=== PATIENT | male | born 1935 | race Caucasian/White ===

== ENCOUNTER 2017-03-26 14:43 | Emergency (ER) | payer MEDICARE, BC, SELFPAY ==
--- NOTE | 2017-03-26 15:42 | XR_ITS ---
XR ankle RT min 3V Ordering Physician: Len Vizcarra Patient Age: 81 years: Male HISTORY: ITS.REASON: ANKLE PAIN. NO INJURY . Swelling ankle. No injury TECHNIQUE: 3 views of right ankle. COMPARISON : Previous right foot study from 2011. FINDINGS Soft tissue swelling is seen overlying the lateral malleolus more so than medial malleolus. No prominent fractures seen at the ankle. No dislocation However just below the tip of the lateral malleolus is a faint calcification. Could reflect old trauma or could reflect a small subtle flake fracture. Barely appreciable in either case. There is similar faint calcification just below the tip of the medial malleolus. I tend to favor old injury here but that acute.. I have no previous ankle studies for comparison.to. Confirm these are old features. U may want to exclude gouty workup if there is any other findings to raises this possibility Also note some faint vascular calcifications throughout the lower leg The dome of the talus is intact with ankle mortise is intact. There is some minor hypertrophic lipping at the superior aspect of the distal tibia at ankle reflecting minor early degenerative changes. Mild talar beaking dorsally. The patient has some dystrophic calcification at the Achilles tendon leading to the Achilles insertion there is also some soft tissue dystrophic calcification anterior to the tibia faintly seen. Minimal small vessel calcification also suggested. . ====== IMPRESSION: Faint calcification just inferior to tip lateral malleolus as well as medial malleolus noted, as well as faint dystrophic calcifications elsewhere about the ankle, as well as Achilles tendon..- Favor these are all most likely dystrophic calcifications, reflecting old injury and/or aging process in this 81-year-old.. Would note Soft tissue swelling is most evident overlying the lateral malleolus.-With this is difficult Difficult to totally exclude a tiny recent flake fracture off tip lateral malleolus but again overall I tend to favor this is an old feature. (Particularly since there is significant injury reported) Certainly no significant displaced fractures, & ankle mortise appears intac .
[2017-03-26 16:14] VITALS: BP 144/65; PULSE 78; RESP 20; TEMP 36.9; O2SAT 96; BMI 29.8
--- NOTE | 2017-03-26 16:24 | HMH.EDUTC ---
[facility] [place] Disposition Clinical Impression: Edema of right lower extremity Disposition: Home, Self-Care Condition on Discharge: Good Instructions: DI for Deep Vein Thrombosis Additional Instructions: go straight to [place] for eval in ed Referrals: Neo Gavin MD [Primary Care Provider] - Time of Disposition: 16:34 (pt refused admission wants to go to [place] to ed for eval tonight afraid of getting sick and wants to know tonight if has a dvt.) Medical Decision Making Vital Signs: 03/26/17 16:14 Temperature 98.4 F Temperature Source Temporal Artery Scan Pulse Rate [Right Radial] 78 Respiratory Rate 20 Blood Pressure [Right Arm] 144/65 Blood Pressure Mean [Right Arm] 91 Blood Pressure Source [Right Arm] Automatic Cuff Blood Pressure Position [Right Arm] Sitting 02 Sat by Pulse Oximetry 96 Oxygen Delivery Method Room Air Orders (Tests/Meds): ORDERS Category Date Time Status Ankle XR -Right minimum 3 Views [XR ankle RT min 3V] Exams 03/26/17 15:42 Taken Stat - Physician Consults Physician Consulted: shari Time: 16:25 Reason -: Admission, Pt condition Comment/Response: ok to admit Additional Consult: shari Time: 16:32 Reason -: Admission Comment/Response: pt wants to leave and go to [facility] [place] to have venous doppler tonight afraid of getting sick if admitted and wants to know if dvt tonight. - Ashu Inquiry Pt receiving controlled substance: No [facility] [place] HPI - General Stated complaint: right ankle hurting Time Seen by Provider: 03/26/17 16:15 Mode of Arrival: Wheelchair Source of Information: Patient Limitations: No Limitations HEENT Symptoms (Recalled from RN notes): No Resp Symptoms (Recalled from RN notes): No Skin Symptoms (Recalled from RN notes): No MS Symptoms (Recalled from RN notes): No Functional Status (Recalled from RN notes): NA - History of Present Illness Provider Complaint: 81 yr old male presents for swelling and pain in rt lower ext. no injury noted - Related Data Home Medications Medication Instructions Recorded Confirmed Mycophenolate Mofetil 250 mg PO DAILY 03/26/17 03/26/17 Tacrolimus 1 mg PO DAILY 03/26/17 03/26/17 Allergies Allergy/AdvReac Type Severity Reaction Status Date / Time codeine [CODEINE] Allergy Mild Verified 03/26/17 15:06 iodine [IODINE] Allergy Mild Verified 03/26/17 15:06 - Worker's Comp Is this a Worker's Comp case?: No Is this an [facility] Worker's Comp?: No Is this a [place] Worker's Comp?: No [facility] History I have reviewed the patient's past medical history: Yes Medical History: Denies:: Cancer, Diabetes Mellitus Type 1, Diabetes Mellitus Type 2, MRSA Amputation: No Fractures: No - *Social History Educational Level: Attended High School Alcohol Intake: never - Psychiatric History Expresses thoughts of harming self/others: None Suicide Plan Description: No Plan ROS Obtained: Yes All systems reviewed & no additional complaints - Constitutional Constitutional: Reports system reviewed and no additional complaints, except as docu - Eyes Eyes: Reports system reviewed and no additional complaints, except as docu - ENT Ears, Nose, Mouth, and Throat: Reports system reviewed and no additional complaints, except as docu - Cardiovascular Cardiovascular: Reports system reviewed and no additional complaints, except as docu, Reports pedal edema - Respiratory Respiratory: Yes system reviewed and no additional complaints, except as docu - Gastrointestinal Gastrointestingal: Reports: system reviewed and no additional complaints, except as docu - Musculoskeletal Musculoskeletal: Reports system reviewed and no additional complaints, except as docu - Integumentary/Breasts Skin/Breast: Reports system reviewed and no additional complaints, except as docu - Neurologic Neurologic: Reports system reviewed and no additional complaints, except as docu - Endocrine Endocrine: Reports system reviewed and no a
--- NOTE | 2017-03-26 16:30 | ED_ITS ---
[facility] [place] Clinical Impression: Edema of right lower extremity Disposition: Home, Self-Care Condition on Discharge: Good Instructions: DI for Deep Vein Thrombosis Additional Instructions: go straight to [place] for eval in ed Referrals: Neo Gavin MD [Primary Care Provider] - Time of Disposition: 16:34 (pt refused admission wants to go to [place] to ed for eval tonight afraid of getting sick and wants to know tonight if has a dvt.) Medical Decision Making Vital Signs: 03/26/17 16:14 Temperature 98.4 F Temperature Source Temporal Artery Scan Pulse Rate [Right Radial] 78 Respiratory Rate 20 Blood Pressure [Right Arm] 144/65 Blood Pressure Mean [Right Arm] 91 Blood Pressure Source [Right Arm] Automatic Cuff Blood Pressure Position [Right Arm] Sitting 02 Sat by Pulse Oximetry 96 Oxygen Delivery Method Room Air Orders (Tests/Meds): ORDERS Category Date Time Status Ankle XR -Right minimum 3 Views [XR ankle RT min 3V] Exams 03/26/17 15:42 Taken Stat - Physician Consults Physician Consulted: shari Time: 16:25 Reason -: Admission, Pt condition Comment/Response: ok to admit Additional Consult: shari Time: 16:32 Reason -: Admission Comment/Response: pt wants to leave and go to [facility] to have venous doppler tonight afraid of getting sick if admitted and wants to know if dvt tonight. - Ashu Inquiry Pt receiving controlled substance: No [facility] [place] - General Stated complaint: right ankle hurting Time Seen by Provider: 03/26/17 16:15 Mode of Arrival: Wheelchair Source of Information: Patient Limitations: No Limitations HEENT Symptoms (Recalled from RN notes): No Resp Symptoms (Recalled from RN notes): No Skin Symptoms (Recalled from RN notes): No MS Symptoms (Recalled from RN notes): No Functional Status (Recalled from RN notes): NA - History of Present Illness Provider Complaint: 81 yr old male presents for swelling and pain in rt lower ext. no injury noted - Related Data Home Medications Medication Instructions Recorded Confirmed Mycophenolate Mofetil 250 mg PO DAILY 03/26/17 03/26/17 Tacrolimus 1 mg PO DAILY 03/26/17 03/26/17 Allergies Allergy/AdvReac Type Severity Reaction Status Date / Time codeine [CODEINE] Allergy Mild Verified 03/26/17 15:06 iodine [IODINE] Allergy Mild Verified 03/26/17 15:06 - Worker's Comp Is this a Worker's Comp case?: No Is this an [facility] Worker's Comp?: No Is this a [place] Worker's Comp?: No [facility] History I have reviewed the patient's past medical history: Yes Medical History: Denies:: Cancer, Diabetes Mellitus Type 1, Diabetes Mellitus Type 2, MRSA Amputation: No Fractures: No - *Social History Educational Level: Attended High School Alcohol Intake: never - Psychiatric History Expresses thoughts of harming self/others: None Suicide Plan Description: No Plan ROS Obtained: Yes All systems reviewed & no additional complaints - Constitutional Constitutional: Reports system reviewed and no additional complaints, except as docu - Eyes Eyes: Reports system reviewed and no additional complaints, except as docu - ENT Ears, Nose, Mouth, and Throat: Reports system reviewed and no additional complaints, except as docu - [facility]
== END 2017-03-26 16:42 | disposition home or self-care (01) ==
PROVIDERS: Emergency Provider Nurse Practitioner Family; Family Provider Family Medicine; PCP Family Medicine
DX: R60.9 Edema, unspecified (principal); Z79.899 Other long term (current) drug therapy
CPT/HCPCS: 73610; 99202

== ENCOUNTER → 2017-05-02 07:05 | Outpatient (CLI) | payer MEDICARE, BC, SELFPAY ==
[2017-05-02 07:12] LABS: Microscopic, Urine URINE MICROSCOPIC (MICROSCOPIC)
[2017-05-02 08:01] LABS: Appearance,Urine CLEAR (Clear); Basophils % 0.4 % (0.1-2.0); Bilirubin,Urine Negative (Negative); Blood, Urine Negative (Negative); Color,Urine YELLOW (Yellow); Eosinophils # 0.1 K/mm3 (0.0-0.4); Eosinophils % 1.7 % (0.1-12.0); Glucose,Urine (UA) Negative (Negative); Hematocrit 47.3 % (42.0-52.0); Hemoglobin 15.4 g/dL (14.1-18.0); Ketones,Urine Negative (Negative); Leukocyte Esterase,Urine Negative (Negative); Lymphocytes # 1.6 K/mm3 (0.7-4.5); Lymphocytes % 23.1 K/mm3 (10-50); Mean Corpuscular HGB Conc 32.5 g/dL (31.8-35.4); Mean Corpuscular Hemoglobin 29.5 pg (27.0-31.2); Mean Corpuscular Volume 90.9 fl (80-94); Mean Platelet Volume 8.4 fl (7.4-10.4); Monocytes # 0.6 K/mm3 (0.1-1.0); Monocytes % 9.2 % (1.7-9.3); Neutrophils # 4.4 K/mm3 (1.8-7.8); Neutrophils % 65.5 % (37.0-80.0); Nitrate,Urine Negative (Negative); Platelet Count 158 K/mm3 (142-424); Protein,Urine TRACE (Negative); Red Blood Count 5.21 M/mm3 (4.60-6.20); Red Cell Distribution Width 13.4 % (11.5-17.5); Specific Gravity, Urine >= 1.030 (1.005-1.030); Urobilinogen,Urine 0.2 EU/dl (0.2); White Blood Count 6.8 K/mm3 (4.8-10.8)
[2017-05-02 08:11] LABS: Bacteria,Urine 1+ /lpf
[2017-05-02 09:08] LABS: Anion Gap 15.1 mEq/L (5-15); Blood Urea Nitrogen 19 mg/dL (7-18); Calcium 8.8 mg/dL (8.5-10.1); Carbon Dioxide 24 mmol/L (21.0-32.0); Chloride 105 mmol/L (98-107); Creatinine,Serum 1.16 mg/dL (0.70-1.30); Estimated Glomerular Filt Rate 60 ml/min (>60); GFR (African American) 73 ML/MIN (>60); Glucose 114 mg/dL (74-106); Phosphorous 2.8 mg/dL (2.4-4.9); Potassium 4.1 mmoL/L (3.5-5.1); Sodium 140 mmol/L (136-145)
[2017-05-03 13:21] LABS: Vitamin D 25 Hydroxy 38.3 ng/mL (30.0-100.0)
[2017-05-04 11:51] LABS: Parathyroid Hormone Intact 98 pg/mL (15-65)
== END ==
PROVIDERS: Visit Provider Internal Medicine Nephrology
DX: N18.3 Chronic kidney disease, stage 3 (moderate) (principal)
CPT/HCPCS: 36415; 80069; 81001; 82652; 83970; 85025

== ENCOUNTER → 2017-09-25 07:57 | Outpatient (CLI) | payer MEDICARE, BC, SELFPAY | PROVIDERS: Family Provider Family Medicine; PCP Family Medicine; Visit Provider Family Medicine | DX: R07.2 Precordial pain (principal) | CPT/HCPCS: 93017 ==

== ENCOUNTER → 2017-10-16 06:42 | Outpatient (CLI) | payer MEDICARE, BC, SELFPAY ==
--- NOTE | 2017-10-16 06:44 | CA_ITS ---
PROCEDURE: 2-D M-mode and color Doppler study INDICATIONS FOR THE TEST: Chest pain COPD Heart Murmur Tobacco Smoking Palpitations Fatigue Syncope Edema Hypertension Diabetes Mellitus Rheumatic Fever SOB CULVER+Obesity Hyperlipidemia Family History HD Additional History KIDNEY TRANSPLANT PATIENT INFORMATION HEIGHT:66 WEIGHT:185 GENDER: Male B/P:139/79 2-D/M-MODE INTERPRETATION: 2-D MEASUREMENTS OBSERVED VALUES IN CMS Right Ventricular Dimension (RVDd) 2.2 Interventricular Septum (Thickness)(IVsd) 1.3 Left Ventricular Internal Dimensions(LVIDd) 3.2 Left Ventricular Posterior Wall (Thickness)(LVPWd) 1.2 Aortic Root 3.4 Aortic Cusp Separation 1.9 Left Atrial Dimensions (LAD) 3.7 2D 1. Left atrium is mildly enlarged, left ventricle is normal size, mild concentric left ventricular hypertrophy, visually estimated ejection fraction 55% with no obvious regional wall motion abnormality. 2. The right atrium and right ventricle are normal size and contractility. 3. The aortic valve is thickened and calcified leaflet continue to display mobility. 4. Mitral valve has mitral calcification, leaflets are minimally thickened. 5. The pulmonic valve is poorly visualized. 6. No significant pericardial effusion noted. DOPPLER INTERROGATION: Doppler interrogation of the aortic, mitral and tricuspid valvular presence of mild aortic, mild mitral and tricuspid regurgitation, tricuspid and jet velocity insufficient for calculation ventricular systolic pressure, grade 1 diastolic dysfunction seen with tissue Doppler evidence of raised left atrial pressure. CONCLUSION: 1. Mildly enlarged left atrium, normal left ventricular size, mild concentric left ventricular hypertrophy, visually estimated ejection fraction 55% with no obvious regional wall motion abnormality, grade 1 diastolic dysfunction seen with tissue Doppler evidence of raised left atrial pressure. 2. Mild aortic, mild mitral and tricuspid regurgitation 3. No significant pericardial effusion noted.
--- NOTE | 2017-10-16 06:44 | NM_ITS ---
History and Indications: Chest pain, abnormal exercise treadmill stress test Procedure: Patient received a 0.4 mg of intravenous Lexiscan, resting heart rate was 65 bpm, resting blood pressure 139/72, with Lexiscan maximum heart rate achieved was 116 beats prominent which is less than 85% of the maximum predicted heart rate and a blood pressure was 138/73. With Lexiscan no symptoms of chest pain or shortness of breath recorded. Electrocardiogram: Resting electrocardiogram showed sinus rhythm, with Lexiscan there is less than 1.[address] segment depression noted from the baseline EKG. The EKG portion of the Lexiscan Myoview is nondiagnostic. Cardiac stress and resting SPECT images: Cardiac stress and rest SPECT images were obtained using technetium 99 Myoview 31.1 mCi at stress, and 9.8 mCi at rest. Gated SPECT further analysis of segmental wall motion and calculation of the ejection fraction also done. Cardiac stress and rest images show uniform myocardial activity without any segmental perfusion abnormality, computer derived ejection fraction is over 65% with no obvious regional wall motion abnormality, right ventricle is normal size and contractility. Conclusion: 1. The EKG portion of the Lexiscan Myoview is nondiagnostic. 2. No obvious scintigraphic evidence of reversible ischemia seen, computer derived ejection fraction is over 65% with no obvious regional wall motion abnormality, right ventricle is normal size and contractility. 3. Normal Lexiscan Myoview study.
--- NOTE | 2017-10-16 07:31 | HMH.ITSHM ---
TACROLIMUS MYCOPHENOLATE PHOSPHA FINASTERIDE VITAMIN B 12 GABAPENTIN TAMSULOSIN PROLENSA DOXAZOSIN CALAITRAIL
== END ==
PROVIDERS: Family Provider Family Medicine; PCP Family Medicine; Visit Provider Internal Medicine
DX: R07.9 Chest pain, unspecified (principal)
CPT/HCPCS: 78452; 93017; 93306; A9502; J2785

== ENCOUNTER → 2017-11-20 07:27 | Outpatient (CLI) | payer MEDICARE, BC, SELFPAY ==
[2017-11-20 07:31] LABS: Microscopic, Urine URINE MICROSCOPIC (MICROSCOPIC)
[2017-11-20 08:21] LABS: Appearance,Urine CLEAR (Clear); Bilirubin,Urine Negative (Negative); Blood, Urine Negative (Negative); Color,Urine YELLOW (Yellow); Glucose,Urine (UA) Negative (Negative); Ketones,Urine Negative (Negative); Leukocyte Esterase,Urine Negative (Negative); Nitrate,Urine Negative (Negative); Protein,Urine Negative (Negative); Specific Gravity, Urine 1.015 (1.005-1.030); Urobilinogen,Urine 0.2 EU/dl (0.2)
[2017-11-20 08:23] LABS: Creatinine,Urine Random 111 mg/dL (20-320); Total Protein,Urine Random 32.8 mg/dL (0.0-11.9)
[2017-11-20 08:34] LABS: Amorphous Sediment,Urine 2+ /lpf; Squamous Epithelial Cell,Urine Occasional #/hpf (0-5); WBC,Urine Occasional #/hpf (0-3)
[2017-11-20 08:35] LABS: Bacteria,Urine Trace /lpf
[2017-11-20 09:01] LABS: Albumin Level 3.7 gm/dL (3.4-5.0); Anion Gap 12.1 mEq/L (5-15); Blood Urea Nitrogen 14 mg/dL (7-18); Calcium 8.4 mg/dL (8.5-10.1); Carbon Dioxide 26 mmol/L (21.0-32.0); Chloride 109 mmol/L (98-107); Creatinine,Serum 1.14 mg/dL (0.70-1.30); Estimated Glomerular Filt Rate 61 ml/min (>60); GFR (African American) 74 ML/MIN (>60); Glucose 114 mg/dL (74-106); Phosphorous 2.8 mg/dL (2.4-4.9); Potassium 4.1 mmoL/L (3.5-5.1); Sodium 143 mmol/L (136-145)
[2017-11-22 07:50] LABS: Parathyroid Hormone Intact 102 pg/mL (15-65)
[2017-11-24 18:26] LABS: Tacrolimus (FK506), Blood 4.4 ng/mL (2.0-20.0)
== END ==
PROVIDERS: PCP Family Medicine; Visit Provider Internal Medicine Nephrology
DX: N18.3 Chronic kidney disease, stage 3 (moderate) (principal); N25.81 Secondary hyperparathyroidism of renal origin
CPT/HCPCS: 36415; 80069; 80197; 81001; 82570; 83970; 84155

== ENCOUNTER → 2018-05-29 07:01 | Outpatient (CLI) | payer MEDICARE, BC, SELFPAY ==
[2018-05-29 07:53] LABS: Basophils % 0.7 % (0.1-2.0); Eosinophils # 0.1 K/mm3 (0.0-0.4); Eosinophils % 2.4 % (0.1-12.0); Hematocrit 47.7 % (42.0-52.0); Hemoglobin 15.6 g/dL (14.1-18.0); Lymphocytes # 1.5 K/mm3 (0.7-4.5); Lymphocytes % 28.9 % (10-50); Mean Corpuscular HGB Conc 32.6 g/dL (31.8-35.4); Mean Corpuscular Hemoglobin 29.9 pg (27.0-31.2); Mean Corpuscular Volume 91.6 fl (80-94); Mean Platelet Volume 8.2 fl (7.4-10.4); Monocytes # 0.4 K/mm3 (0.1-1.0); Neutrophils # 3.1 K/mm3 (1.8-7.8); Neutrophils % 60.1 % (37.0-80.0); Platelet Count 166 K/mm3 (142-424); Red Blood Count 5.21 M/mm3 (4.60-6.20); White Blood Count 5.2 K/mm3 (4.8-10.8)
[2018-05-29 08:26] LABS: Creatinine,Urine Random 137 mg/dL (20-320); Total Protein,Urine Random 26.9 mg/dL (0.0-11.9)
[2018-05-29 09:32] LABS: Albumin Level 3.9 gm/dL (3.4-5.0); Anion Gap 14.3 mEq/L (5-15); Blood Urea Nitrogen 20 mg/dL (7-18); Calcium 9.1 mg/dL (8.5-10.1); Carbon Dioxide 26 mmol/L (21.0-32.0); Chloride 104 mmol/L (98-107); Estimated Glomerular Filt Rate 58 ml/min (>60); GFR (African American) 70 ML/MIN (>60); Glucose 125 mg/dL (74-106); Phosphorous 2.5 mg/dL (2.4-4.9); Potassium 4.3 mmoL/L (3.5-5.1); Sodium 140 mmol/L (136-145)
[2018-05-30 08:44] LABS: Vitamin D 25 Hydroxy 21.9 ng/mL (30.0-100.0)
[2018-05-31 12:57] LABS: Parathyroid Hormone Intact 86 pg/mL (15-65)
== END ==
PROVIDERS: Visit Provider Hospitalist
DX: N18.3 Chronic kidney disease, stage 3 (moderate) (principal); N25.81 Secondary hyperparathyroidism of renal origin
CPT/HCPCS: 36415; 80069; 82570; 82652; 83970; 84155; 85025

== ENCOUNTER → 2018-07-19 06:57 | Outpatient (CLI) | payer MEDICARE, BC, SELFPAY | PROVIDERS: Visit Provider Internal Medicine Nephrology | DX: Z94.0 Kidney transplant status (principal); Z79.899 Other long term (current) drug therapy | CPT/HCPCS: 36415 ==

== ENCOUNTER 2018-11-16 01:23 | Inpatient (IN) ==
[2018-11-16 01:51] LABS: Microscopic, Urine URINE MICROSCOPIC (MICROSCOPIC)
[2018-11-16 01:54] LABS: Basophils % 0.3 % (0.1-2.0); Eosinophils # 0.1 K/mm3 (0.0-0.4); Eosinophils % 1.1 % (0.1-12.0); Hematocrit 45.5 % (42.0-52.0); Hemoglobin 14.9 g/dL (14.1-18.0); Lymphocytes # 1.6 K/mm3 (0.7-4.5); Lymphocytes % 15.1 % (10-50); Mean Corpuscular HGB Conc 32.7 g/dL (31.8-35.4); Mean Platelet Volume 9.1 fl (7.4-10.4); Monocytes # 0.9 K/mm3 (0.1-1.0); Monocytes % 8.4 % (1.7-9.3); Neutrophils # 7.9 K/mm3 (1.8-7.8); Platelet Count 144 K/mm3 (142-424); Red Blood Count 4.95 M/mm3 (4.60-6.20); Red Cell Distribution Width 13.9 % (11.5-17.5); White Blood Count 10.5 K/mm3 (4.8-10.8)
[2018-11-16 02:03] LABS: Appearance,Urine CLEAR (Clear); Bilirubin,Urine Negative (Negative); Blood, Urine Negative (Negative); Color,Urine YELLOW (Yellow); Glucose,Urine (UA) Negative (Negative); Ketones,Urine Negative (Negative); Leukocyte Esterase,Urine Negative (Negative); PH,Urine 6.5 (5.0-8.5); Protein,Urine Negative (Negative); Specific Gravity, Urine 1.025 (1.005-1.030); Urobilinogen,Urine 0.2 EU/dl (0.2)
[2018-11-16 02:07] LABS: Albumin Level 3.6 gm/dL (3.4-5.0); Albumin/Globulin Ratio 1.1 (1.1-1.8); Anion Gap 14.8 mEq/L (5-15); Bilirubin,Total 0.5 mg/dL (0.2-1.0); Calcium 8.6 mg/dL (8.5-10.1); Globulin 3.2 gm/dl (1.3-3.2); Total Protein,Serum 6.8 gm/dL (6.4-8.2)
--- NOTE | 2018-11-16 02:17 | Emergency Department Note ---
ED Disposition Clinical Impression: Diverticulitis, Elevated troponin I level, Renal transplant recipient Disposition: Admitted As Inpatient Condition on Discharge: Serious Instructions: DI for Acute Abdomen Referrals: Neo Gavin MD [Primary Care Provider] - - Critical Care Critical Care Time: No Attestation: On 11/16/18, the high probability of a clinically significant, sudden or life threatening deterioration of the following system(s) required my full and direct attention, intervention and personal management. The time I documented below is in addition to time spent performing reported procedures but includes the following listed in this critical care notation. Medical Decision Making - Medical Records Medical records reviewed: Yes: I reviewed the patient's medical records. - Ashu Inquiry Pt receiving controlled substance: No Vital Signs: 11/16/18 01:24 11/16/18 01:37 11/16/18 02:00 Temperature 98.7 F 98.7 F Temperature Source Oral Oral Pulse Rate [Right Radial] 78 73 76 Respiratory Rate 18 18 18 Blood Pressure [Right Arm] 143/80 H 143/80 H 139/84 Blood Pressure Mean [Right Arm] 101 101 102 Blood Pressure Source [Right Arm] Automatic Cuff Automatic Cuff Blood Pressure Position [Right Arm] Supine Supine 02 Sat by Pulse Oximetry 98 98 98 Oxygen Delivery Method Room Air Room Air Room Air - Lab Data Lab results reviewed: Yes: I reviewed the patient's lab results. Lab Results 11/16/18 01:40: Urine Color Yellow, Urine Appearance Clear, Urine pH 6.5, Ur Specific [place] 1.025, Urine Protein Negative, Urine Glucose (UA) Negative, Urine Ketones Negative, Urine Blood Negative, Urine Nitrate Negative, Urine Bilirubin Negative, Urine Urobilinogen 0.2, Ur Leukocyte Esterase Negative, Urine WBC 3-5, Ur Squamous Epith Cells Occasional, Urine Bacteria Trace 11/16/18 01:40: WBC 10.5, RBC 4.95, Hgb 14.9, Hct 45.5, MCV 92.0, MCH 30.1, MCHC 32.7, RDW 13.9, Plt Count 144, MPV 9.1, Neut % (Auto) 75.0, Lymph % (Auto) 15.1, [place] % (Auto) 8.4, Eos % (Auto) 1.1, Baso % (Auto) 0.3, Neut # (Auto) 7.9 H, Lymph # (Auto) 1.6, [place] # (Auto) 0.9, Eos # (Auto) 0.1, Baso # (Auto) 0.0 11/16/18 01:40: Sodium 138, Potassium 3.8, Chloride 103, Carbon Dioxide 24, Anion Gap 14.8, BUN 16, Creatinine 1.22, Estimated Creat Clear 52, Estimated GFR 57 L, Est GFR ( Amer) 68, Glucose 129 H, Calcium 8.6, Total Bilirubin 0.5, AST 14 L, ALT 13, Alkaline Phosphatase 68, Troponin I 0.17 H, Total Protein 6.8, Albumin 3.6, Globulin 3.2, Albumin/Globulin Ratio 1.1, Amylase 61, Lipase 114 11/16/18 03:43: Troponin I 0.18 H Result diagrams: 11/16/18 01:40 11/16/18 01:40 Orders (Tests/Meds): ED MEDICATIONS Generic Name Dose Route Start Last Admin Trade Name Freq PRN Reason Stop Dose Admin Sodium Chloride 1,000 mls @ 999 mls/hr 11/16/18 01:45 11/16/18 02:00 Sod Chlor 0.9% 1000ml Bag IV 11/16/18 02:45 999 mls/hr .Q1H1M IRMA Administration Levofloxacin/Dextrose 750 mg in 150 mls @ 100 mls/hr 11/16/18 03:45 Levofloxacin 750mg/150ml Premix IV 11/30/18 03:44 Q24H IRMA Protocol Metronidazole 500 mg in 100 mls @ 100 mls/hr 11/16/18 03:45 11/16/18 03:51 Flagyl 500mg/100ml Ivpb IV 11/30/18 03:44 100 mls/hr Q8H IRMA Administration Protocol Sodium Chloride 10 ml 11/16/18 01:42 Saline Flush 10ml Syringe IV 12/16/18 01:41 NEEDED PRN Maintain IV Site Sodium Chloride 8 ml 11/16/18 01:42 Sodium Chloride 0.9% 10ml Vial IV 12/16/18 01:41 NEEDED PRN dilute pepcid Discontinued Medications Generic Name Dose Route Start Last Admin Trade Name Freq PRN Reason Stop Dose Admin Aspirin 324 mg 11/16/18 02:00 11/16/18 02:01 Aspirin 81mg Chewable Tablet PO 11/16/18 02:01 324 mg ONCE ONE Administration Famotidine 20 mg 11/16/18 01:42 11/16/18 02:00 Pepcid 20mg/2ml Vial IV 11/16/18 01:43 20 mg ONCE ONE Administration Ketorolac Tromethamine 30 mg 11/16/18 02:08 11/16/18 02:11 Toradol 30mg/Ml Vial IV 11/16/18 02:09 30 mg ONCE ONE Administration Metoclopramide HCl 10 mg 11/16/18 01:42 11/16/18 02:00 Reglan 10mg/2ml Vial IVP 11/16/18 01:43 10 mg ONCE ONE Administration Morphine Sulfate 2 mg 11/16/18 03:55 11/16/18 04:02 Morphine 2mg/Ml Syringe IV 11/16/18 03:56 2 mg ONCE ONE Administration Nitroglycerin 1 gm 11/16/18 03:45 11/16/18 04:03 Nitroglycerin 1 Inch Oint Udp TD 11/16/18 03:46 1 gm ONCE ONE Administration Ondansetron HCl 4 mg 11/16/18 02:08 11/16/18 02:11 Zofran 4mg/2ml Vial IV 11/16/18 02:09 4 mg ONCE ONE Administration - Radiology Data #1 Image(s): Chest Image Reviewed: Yes I reviewed the patient's radiology image Preliminary Findings: Normal/NAD - CT Data CT Scan: Abdomen, Pelvis Time Received: 03:[address] Reviewed: Yes: I have viewed the radiologist's interpretation Preliminary Findings: Abnormal (diverticulitis ) - ECG Data Tracing #1 Normal Sinus Rhythm: Yes Ischemic changes: non-specific ST-T wave changes - Physician Consults Physician Consulted: alessandro Reason -: Admission - MURIEL Score for Non-Stemi Age of Patient: 80-89 years old Heart Rate: 70-89 bpm Systolic Blood Pressure: 140-159 mmHg Serum Creatinine: 1.20-1.59 mg/dl CHF [place] Class: I-No CHF Other Risk Factors: Elevated Cardiac Enzymes or Biomarkers Non-Stemi Risk Score: 148 Nausea/Vomiting/Diarrhea HPI - General Chief complaint: Abdominal Pain Stated complaint: Pain in Lower left side;Nausea Time Seen by Provider: 11/16/18 01:50 Mode of Arrival: Ambulatory Source of Information: Patient, Relative, Medical Record Limitations: No Limitations Description of Symptoms (Recalled from ER Triage Doc. by RN): pt states that yesterday he began having left lower abdominal pain that has progressed into today and worsened and is now radiating across his chest and between his shoulder blades and down both arms into his legs. pt states he is also having nausea. - History of Present Illness HPI Narrative: pt with lower abd pain with nausea over the last few days - pt also wuth upper back pain with rad to bilat scapula - - pt with no sig cough or sob and reports no fever or diarrhea - MD complaint: nausea, abdominal pain Onset (ago): day(s) Associated Abdominal Pain: Yes Location of pain: LLQ Severity: moderate Associated symptoms: denies other symptoms - Related Data Home Medications Medication Instructions Recorded Confirmed Mycophenolate Mofetil 1,000 mg PO BID 03/26/17 11/16/18 Tacrolimus 1 mg PO BID 03/26/17 11/16/18 Calcitriol [Calcitriol 0.25mcg 0.25 mcg PO DIRECTED 09/07/17 11/16/18 Capsule] Doxazosin Mesylate [Doxazosin 2mg 4 mg PO DAILY 09/07/17 11/16/18 Tab] Finasteride [Proscar 5mg Tablet] 5 mg PO DAILY 09/07/17 11/16/18 Phosphorus #1 [Phospha 250 Neutral 250 tab PO BID 09/07/17 11/16/18 Tablet] Vit B12/Folic Acid/B6/Aa15 1 each PO DAILY 09/07/17 11/16/18 [Glycotrol Capsule] gabapentin 300 mg capsule 300 mg PO DAILY 10/10/17 11/16/18 Bromfenac Sodium [Prolensa] 0.07 % EYE-BOTH DAILY 11/16/18 11/16/18 Citalopram Hydrobromide [Celexa 10 mg PO DAILY 11/16/18 11/16/18 10mg Tablet] Doxycycline Hyclate [Doxycycline 20 mg PO BID 11/16/18 11/16/18 20mg Tablet] Allergies Allergy/AdvReac Type Severity Reaction Status Date / Time codeine [CODEINE] Allergy Mild Verified 11/16/18 01:41 iodine [IODINE] Allergy Mild Verified 11/16/18 01:41 Sulfa (Sulfonamide Allergy Verified 11/16/18 01:41 Antibiotics) [facility] History - Hepatitis A Screen Drug use history?: No High risk sexual behaviors?: No History of sexually transmitted infection?: No Currently employed?: No Childcare worker?: No Do you have indoor plumbing?: Yes Do you have electricity?: Yes Attestation statement:: This patient has been screened for Hepatitis A risk factors. I have reviewed the patient's past medical history: Yes Medical History: Reports:: Renal Disease Denies:: Cancer, Diabetes Mellitus Type 1, Diabetes Mellitus Type 2, MRSA Laterality Cases: Bilateral: Other Other Surgeries: Yes: Colon Resection Amputation: No Fractures: No - Social History Smoking Status: Former smoker Alcohol Intake: never Occupational Status: retired Family Hx:: No significant family history ROS Obtained: Yes All systems reviewed & no additional complaints - Constitutional Constitutional: Denies fever(s) - Eyes Eyes: Denies change in vision - ENT Ears, Nose, Mouth, and Throat: Denies sore throat - Cardiovascular Cardiovascular: Denies chest pain, Denies dyspnea - Respiratory Respiratory: No cough - Gastrointestinal Gastrointestingal: Reports: as per HPI, abdominal pain, nausea. Denies: diarrhea, bright red blood in stools, black, tarry stools, vomiting - Genitourinary Male Genitourinary: Denies hematuria - Musculoskeletal Musculoskeletal: Denies joint pain, Denies neck pain - Integumentary/Breasts Skin/Breast: Denies rash Physical Exam - General General appearance: alert - Head Head exam: normocephalic - Eye Eye exam: Present: PERRL, EOMI. Absent: scleral icterus - ENT ENT exam: Present: mucous membranes dry - Neck Neck exam: Present: trachea midline - Respiratory Respiratory exam: Present: normal lung sounds bilaterally. Absent: respiratory distress - Cardiovascular Cardiovascular exam: Present: regular rate, systolic murmur, +S4 - Abdominal Exam Abdominal exam: Present: soft, tenderness Abdominal tenderness: Present: LLQ, moderate - Extremities Exam Extremities exam: Absent: calf tenderness - Neurological Exam Neurological exam: Present: alert, oriented X3, CN II-XII intact - Psychiatric Psychiatric exam: Present: normal affect - Skin Skin exam: Absent: rash
[2018-11-16 02:25] LABS: Bacteria,Urine Trace /lpf; Squamous Epithelial Cell,Urine Occasional #/hpf (0-5)
--- NOTE | 2018-11-16 07:34 | Pharmacy Consult Notes ---
[facility] Pharmacy VTE Monitoring - Patient Demographics Admission date: 11/16/18 Report Date: 11/16/18 Time: 07:34 Allergies/Adverse Reactions: Patient Allergies codeine [CODEINE] Allergy (Mild, Verified 11/16/18 01:41) iodine [IODINE] Allergy (Mild, Verified 11/16/18 01:41) Sulfa (Sulfonamide Antibiotics) Allergy (Verified 11/16/18 01:41) Height: 1.65 m Weight: 84.113 kg Patient Problems: Current Active Problems Diverticulitis (Acute) Elevated troponin I level (Acute) Renal transplant recipient (Acute) - VTE Risk Labs: VTE Related Lab Results Hgb 14.9 g/dL (14.1-18.0) 11/16/18 01:40 Hct 45.5 % (42.0-52.0) 11/16/18 01:40 Plt Count 144 K/mm3 (142-424) 11/16/18 01:40 BUN 16 mg/dL (7-18) 11/16/18 01:40 Creatinine 1.22 mg/dL (0.70-1.30) 11/16/18 01:40 Estimated Creat Clear 52 mL/min (50-200) 11/16/18 01:40 Was VTE Risk Assessment Performed: Yes VTE Score: 3 VTE Risk Level: Low Risk - Prophylaxis VTE Prophylaxis Ordered?: Yes Types of VTE Prophylaxis: TEDS Knee High Location of Applied Device: Bilateral Lower Extremeties - VTE Diagnosis Confirmed Treatment or plan recommended: Continue Current Treatment
--- NOTE | 2018-11-16 08:07 | Cardiology Report ---
APPROVED REPORT EXAM: Comprehensive 2D, Doppler, and color-flow Echocardiogram Administrative Asst: Arina Allen RDCS Ht: 5 ft 5 in Wt: 180lbs BSA: 1.89 BP: 139/84 mmHg Indications: CP ELEVATED TROPONINS RENAL DISEASE EX SMOKER 2D Dimensions LVOT 1.80 cm (M/F) 1.5-2.5 M-Mode Dimensions RVDd 1.90 cm (0.9-2.6)LA Diam 3.10 cm (1.9-4.0) LVDd 3.60 cm (3.5-5.7)Ao Diam 3.50 cm (2.0-3.7) LVDs 2.40 cm (3.5-5.7)AV Cusp 1.60 cm (1.5-2.6) IVSd 1.10 cm (0.6-1.1)PWd 1.20 cm (0.6-1.1) EF (Teich) 62.90% FS 33.30% EDV (Teich) 54.40 mLESV (Teich) 20.20 mL LV Diastology E/A Ratio 0.8MED E' 6.82 (< 7 cm/sec) E'/MED E' Ratio10.00 (>14)LAT E' 6.63 (<10 cm/sec) E/LAT E' Ratio 10.30 (>14) Mitral Valve MV E Max Alejandro. 68.10 (40-130 cm/s)MV A Velocity 84.90 (40-130 cm/s) E/A Ratio 0.80 Left Ventricle Left atrium is mildly enlarged, left ventricle is normal size, mild concentric left ventricular hypertrophy, visually estimated ejection fraction 55% with no regional wall motion abnormality. Grade 1 diastolic dysfunction seen without tissue Doppler evidence of raise left atrial pressure. Right Ventricle Right atrium and right ventricular normal size and contractility. Aortic Valve Aortic valve is thickened and calcified leaflet continue to display good mobility, there is no aortic stenosis aortic insufficiency. Mitral Valve Mitral valve is minimally thickened, there is no mitral stenosis, there is mild mitral regurgitation. Tricuspid Valve Tricuspid valve is grossly normal, there is mild tricuspid regurgitation. Pulmonic Valve Pulmonic valve is poorly visualized. Great Vessels Aortic root is normal size, there is no aortic stenosis. Pericardium No significant pericardial effusion noted. Conclusion 1. Mildly enlarged left atrium, normal left ventricular size, mild concentric left ventricular hypertrophy, visually estimated ejection fraction 55% with no regional wall motion abnormality, grade 1 diastolic dysfunction seen without tissue Doppler evidence of raise left atrial pressure. 2. Mild mitral and tricuspid regurgitation 3. No significant pericardial effusion noted. Electronically signed by : David Miller, 11/16/2018 08:06:28
--- NOTE | 2018-11-16 08:45 | History & Physical Report ---
*Admission Date: 11/16/18 <Rebecca Loza 11/16/18 08:54> *Chief complaint: chest pain, abdominal pain <Rebecca Loza 11/16/18 08:54> *History of present illness: Mr. James is an 83-year-old male with a history of hypertension, hyperlipidemia, possible [place], diverticulitis, hype rparathyroidism, and is status post kidney transplant and followed by the transplant team. He states over the past few weeks he has had some brief episodes of midsternal chest pain, the longest lasting 30 minutes and resolving on its own. Yesterday he began having pain all across his chest that radiated into his left arm, into his back, and up his neck. The pain was not resolving. He also had some difficulty swallowing, became extremely tired, and was diaphoretic. He had some pain in his left lower abdomen as well. He presented to the emergency room and was found to have an elevated troponin. A nitro patch was placed and he was given morphine. He states his pain has now resolved and has not returned. A CT also revealed diverticulitis at the junction of the descending colon and the sigmoid colon. The patient was admitted and cardiology was consulted. He was also started on antibiotics for the diverticulitis. <Rebecca Loza 11/16/18 08:54> [facility] History Medical History: Reports:: BPH, Cancer (skin), Coronary Artery Disease, Hyperlipidemia, Hypertension, Myocardial Infarction, Renal Disease (renal trans plant, chronic granulomatous lung disease, pulmonary nodules) Denies:: Diabetes Mellitus Type 1, Diabetes Mellitus Type 2, MRSA <Rebecca Loza 11/16/18 08:54> *Have you ever received a pneumonia vaccine?: Yes <Rebecca Loza 11/16/18 08:54> *Have you received a flu vaccine this season?: Yes <Rebecca Loza 11/16/18 08:54> Other Medical History: Reports: Other (diverticulitis) <Rebecca Loza 11/16/18 08:54> Laterality Cases: Bilateral: Other <Rebecca Loza 11/16/18 08:54> Other Surgeries: Yes: Cancer Surgery (melanoma removed from nose), Colonoscopy, Colon Resection (d/t diverticulitis), Hernia Repair, Other (prostate surgery, toenail removed, right kidney transplant) <Rebecca Loza 11/16/18 08:54> Amputation: No <Rebecca Loza 11/16/18 08:54> Fractures: No <Rebecca Loza 11/16/18 08:54> - *Social History Educational Level: Completed High School <Rebecca Loza 11/16/18 08:54> Smoking Status: Former smoker <Rebecca Loza 11/16/18 08:54> Alcohol Intake: never <Rebecca Loza 11/16/18 08:54> *Occupational Status:: retired <Rebecca Loza 11/16/18 08:54> Housing: house <Rebecca Loza 11/16/18 08:54> Household Members: spouse <Rebecca Loza 11/16/18 08:54> *Travel in the last 8 weeks: None <Rebecca Loza 11/16/18 08:54> Family Hx:: Stroke <Rebecca Loza 11/16/18 08:54> Review of Systems - Constitutional Reports weakness, Denies fever(s) <Rebecca Loza 11/16/18 08:54> - Eyes Denies blurry vision, Denies double vision <Rebecca Loza 11/16/18 08:54> - ENT Denies nasal congestion, Denies sore throat <Rebecca Loza 11/16/18 08:54> - *Cardiovascular Reports chest pain, Reports excessive sweating, Reports shortness of breath, Reports radiating jaw, neck or arm pain, Denies rapid, pounding, or irregular heartbeat <Rebecca Loza 11/16/18 08:54> - *Respiratory Reports cough, Reports shortness of breath <Rebecca Loza 11/16/18 08:54> - *Gastrointestinal Reports abdominal pain (LLQ), Reports nausea, Denies loose stools, Denies vomiting <Rebecca Loza 11/16/18 08:54> - *Genitourinary Denies difficulty urinating, Denies painful urination <Rebecca Loza 11/16/18 08:54> - *Musculoskeletal Denies joint pain, Denies body aches <Rebecca Loza - 11/16/18 08:54> - *Neurologic Reports headache(s), Reports dizziness, Reports weakness <Rebecca Loza - 11/16/18 08:54> Meds Home Medications Medication Instructions Recorded Confirmed Type Mycophenolate Mofetil 1,000 mg PO BID 03/26/17 11/16/18 History Tacrolimus 2 mg PO BID 03/26/17 11/16/18 History Calcitriol [Calcitriol 0.25mcg 0.25 mcg PO DIRECTED 09/07/17 11/16/18 History Capsule] Doxazosin Mesylate [Doxazosin 2mg 4 mg PO DAILY 09/07/17 11/16/18 History Tab] Finasteride [Proscar 5mg Tablet] 5 mg PO DAILY 09/07/17 11/16/18 History Phosphorus #1 [Phospha 250 Neutral 250 mg PO BID 09/07/17 11/16/18 History Tablet] Vit B12/Folic Acid/B6/Aa15 1 each PO DAILY 09/07/17 11/16/18 History [Glycotrol Capsule] Bromfenac Sodium [Prolensa] 1 drop EYE-BOTH DAILY 11/16/18 11/16/18 History Citalopram Hydrobromide [Celexa 10 mg PO DAILY 11/16/18 11/16/18 History 10mg Tablet] Doxycycline Hyclate [Doxycycline 20 mg PO BID 11/16/18 11/16/18 History 20mg Tablet] Gabapentin [Gabapentin 300mg Cap] 300 mg PO DAILYP PRN 11/16/18 11/16/18 History <Jennifer Stephens - 11/16/18 09:38> Allergies Allergy/AdvReac Type Severity Reaction Status Date / Time codeine [CODEINE] Allergy Mild Verified 11/16/18 01:41 iodine [IODINE] Allergy Mild Verified 11/16/18 01:41 Sulfa (Sulfonamide Allergy Verified 11/16/18 01:41 Antibiotics) <Jennifer Stephens - 11/16/18 09:38> Exam Vital signs and Labs for Last 24 Hours: Temp Pulse Resp BP Pulse Ox 97.8 F 80 18 104/63 L 97 11/16/18 08:00 11/16/18 08:00 11/16/18 08:00 11/16/18 08:00 11/16/18 09:02 Laboratory Results - last 24 hr 11/16/18 01:40: Urine Color Yellow, Urine Appearance Clear, Urine pH 6.5, Ur Specific [place] 1.025, Urine Protein Negative, Urine Glucose (UA) Negative, Urine Ketones Negative, Urine Blood Negative, Urine Nitrate Negative, Urine Bilirubin Negative, Urine Urobilinogen 0.2, Ur Leukocyte Esterase Negative, Urine WBC 3-5, Ur Squamous Epith Cells Occasional, Urine Bacteria Trace 11/16/18 01:40: WBC 10.5, RBC 4.95, Hgb 14.9, Hct 45.5, MCV 92.0, MCH 30.1, MCHC 32.7, RDW 13.9, Plt Count 144, MPV 9.1, Neut % (Auto) 75.0, Lymph % (Auto) 15.1, [place] % (Auto) 8.4, Eos % (Auto) 1.1, Baso % (Auto) 0.3, Neut # (Auto) 7.9 H, Lymph # (Auto) 1.6, [place] # (Auto) 0.9, Eos # (Auto) 0.1, Baso # (Auto) 0.0 11/16/18 01:40: Sodium 138, Potassium 3.8, Chloride 103, Carbon Dioxide 24, Anion Gap 14.8, BUN 16, Creatinine 1.22, Estimated Creat Clear 52, Estimated GFR 57 L, Est GFR ( Amer) 68, Glucose 129 H, Calcium 8.6, Total Bilirubin 0.5, AST 14 L, ALT 13, Alkaline Phosphatase 68, Troponin I 0.17 H, Total Protein 6.8, Albumin 3.6, Globulin 3.2, Albumin/Globulin Ratio 1.1, Amylase 61, Lipase 114 11/16/18 03:43: Troponin I 0.18 H <Jennifer Stephens - 11/16/18 09:38> Temp Pulse Resp BP Pulse Ox 98.0 F 58 L 18 119/79 94 L 11/16/18 05:14 11/16/18 06:15 11/16/18 05:14 11/16/18 05:14 11/16/18 06:00 Laboratory Results - last 24 hr 11/16/18 01:40: Urine Color Yellow, Urine Appearance Clear, Urine pH 6.5, Ur Specific [place] 1.025, Urine Protein Negative, Urine Glucose (UA) Negative, Urine Ketones Negative, Urine Blood Negative, Urine Nitrate Negative, Urine Bilirubin Negative, Urine Urobilinogen 0.2, Ur Leukocyte Esterase Negative, Urine WBC 3-5, Ur Squamous Epith Cells Occasional, Urine Bacteria Trace 11/16/18 01:40: WBC 10.5, RBC 4.95, Hgb 14.9, Hct 45.5, MCV 92.0, MCH 30.1, MCHC 32.7, RDW 13.9, Plt Count 144, MPV 9.1, Neut % (Auto) 75.0, Lymph % (Auto) 15.1, [place] % (Auto) 8.4, Eos % (Auto) 1.1, Baso % (Auto) 0.3, Neut # (Auto) 7.9 H, Lymph # (Auto) 1.6, [place] # (Auto) 0.9, Eos # (Auto) 0.1, Baso # (Auto) 0.0 11/16/18 01:40: Sodium 138, Potassium 3.8, Chloride 103, Carbon Dioxide 24, Anion Gap 14.8, BUN 16, Creatinine 1.22, Estimated Creat Clear 52, Estimated GFR 57 L, Est GFR ( Amer) 68, Glucose 129 H, Calcium 8.6, Total Bilirubin 0.5, AST 14 L, ALT 13, Alkaline Phosphatase 68, Troponin I 0.17 H, Total Protein 6.8, Albumin 3.6, Globulin 3.2, Albumin/Globulin Ratio 1.1, Amylase 61, Lipase 114 11/16/18 03:43: Troponin I 0.18 H <Rebecca Loza - 11/16/18 08:54> I & O for Last 24 hours: Intake & Output 11/13/18 11/14/18 11/15/18 11/16/18 11:59 11:59 11:59 11:59 Weight 185 lb 7 oz <Jennifer Stephens 11/16/18 09:38> Intake & Output 11/13/18 11/14/18 11/15/18 11/16/18 11:59 11:59 11:59 11:59 Weight 185 lb 7 oz <Rebecca Loza 11/16/18 08:54> - Constitutional no acute distress <Rebecca Loza 11/16/18 08:54> - *Routine HEENT Exam Head: Present: normocephalic <Rebecca Loza 11/16/18 08:54> Eye: Present: EOMI, PERRL <Rebecca Loza 11/16/18 08:54> ENT: Present: mucous membranes moist <Rebecca Loza 11/16/18 08:54> - *Routine Neck Exam Present: supple. Absent: lymphadenopathy <Rebecca Loza 11/16/18 08:54> - *Routine Respiratory Exam Present: CTA bilaterally <Rebecca Loza 11/16/18 08:54> - *Routine Cardiovascular Exam Present: RRR <[facility] 11/16/18 08:54> - *Routine Abdominal Exam Present: soft, normoactive bowel sounds, tenderness (LLQ ) <Rebecca Loza 11/16/18 08:54> - *Routine Extremities Exam Absent: cyanosis, clubbing, edema <Rebecca Loza 11/16/18 08:54> - *Routine Skin Exam Present: warm. Absent: rash <Rebecca Loza 11/16/18 08:54> - *Routine Neurological Exam Present: alert, oriented X3 <Jason Lozaa 11/16/18 08:54> - Detailed Eye Exam Eyelids: Left normal inspection <Rebecca Loza 11/16/18 08:54> H&P: Result - Impressions Abdominal CT 1. Acute diverticulitis at the junction of the descending and sigmoid colon. No abscess or perforation. 2. Severe bilateral renal atrophy with unremarkable appearing right renal pelvic transplant CXR - nothing acute <Jason Lozaa 11/16/18 08:54> Assessment and Plan (1) Chest pain Current visit: No Status: Acute Qualifiers: Chest pain type: unspecified Qualified Code(s): R07.9 - Chest pain, unspecified Category: Medical Code(s): R07.9 - Chest pain, unspecified (2) Diverticulitis Current visit: Yes Status: Acute Category: Medical Code(s): K57.92 - Diverticulitis of intestine, part unspecified, without perforation or abscess without bleeding (3) Elevated troponin I level Current visit: Yes Status: Acute Category: Medical Code(s): R74.8 - Abnormal levels of other serum enzymes (4) Renal transplant recipient Current visit: Yes Status: Chronic Category: Surgical Code(s): Z94.0 - Kidney transplant status (5) Hypertension Current visit: Yes Status: Chronic Category: Medical Code(s): I10 - Essential (primary) hypertension (6) Hyperlipidemia Current visit: Yes Status: Chronic Category: Medical Code(s): E78.5 - Hyperlipidemia, unspecified <Jennifer Stephens - 11/16/18 09:38> (1) Diverticulitis Current visit: Yes Status: Acute Category: Medical Code(s): K57.92 - Diverticulitis of intestine, part unspecified, without perforation or abscess without bleeding (2) Elevated troponin I level Current visit: Yes Status: Acute Category: Medical Code(s): R74.8 - Abnormal levels of other serum enzymes (3) Chest pain Current visit: No Status: Acute Qualifiers: Chest pain type: unspecified Qualified Code(s): R07.9 - Chest pain, unspecified Category: Medical Code(s): R07.9 - Chest pain, unspecified (4) Renal transplant recipient Current visit: Yes Status: Chronic Category: Surgical Code(s): Z94.0 - Kidney transplant status (5) Hypertension Current visit: Yes Status: Chronic Category: Medical Code(s): I10 - Essential (primary) hypertension (6) Hyperlipidemia Current visit: Yes Status: Chronic Category: Medical Code(s): E78.5 - Hyperlipidemia, unspecified <Rebecca Loza - 11/16/18 08:54> - Assessment and plan all Dx Assessment and Plan for all problems:: will advance diet and treat diverticulitis first and evaluate elevated troponins outpatient. if tolerates diet, possible dc home today. <Jennifer Stephens - 11/16/18 09:38> We will continue IV antibiotics for diverticulitis and cardiology has been consulted for the chest pain and elevated troponin. <Rebecca Loza - 11/16/18 08:54>
--- NOTE | 2018-11-16 09:14 | Consult Report ---
History of Present Illness Consult date: 11/16/18 Requesting physician: Jennifer Stephens Consult reason: chest pain Chief complaint: chest pain Additional Medical History:: 1. History of renal transplant (daughter is donor), 2006, routine follow-up through transplant team. 2. History of diverticulosis/-itis 3. History of BPH 4. Hard of hearing 5. History of cardiac catheterization approximately 2004 with no need for intervention, [facility] Myoview, 10/2017, no reversible ischemia with normal ejection fraction. History of present illness: Mr. James is an 83-year-old male with a history of hypertension, hyperlipidemia, possible [place], diverticulitis, hyperparathyroidism, and is status post kidney transplant and followed by the transplant team. He states over the past few weeks he has had some brief episodes of midsternal chest pain, the longest lasting 30 minutes and resolving on its own. Yesterday he began having pain all across his chest that radiated into his left arm, into his back, and up his neck. The pain was not resolving. He also had some difficulty swallowing, became extremely tired, and was diaphoretic. He had some pain in his left lower abdomen as well. He presented to the emergency room and was found to have an elevated troponin. A nitro patch was placed and he was given morphine. He states his pain has now resolved and has not returned. A CT also revealed diverticulitis at the junction of the descending colon and the sigmoid colon. The patient was admitted and cardiology was consulted. He was also started on antibiotics for the diverticulitis The above per Rebecca Loza PA-C, for Dr. Stephens Patient's daughter is present also and relates that the patient is very active around the house as well as taking care of his who has some dementia. He is under significant amount of stress in dealing with her and does not rest well. The chest discomfort he describes as noted above is different than anything he has had in the past and was very concerning to him. Symptoms woke him from sleep earlier this morning at which time the daughter insisted he come to the hospital for evaluation. Cardiac enzymes have returned mildly elevated but echocardiogram this a.m. shows normal left ventricular size and function with no wall motion abnormality. [facility] History Medical History: Reports:: BPH, Cancer (skin), Coronary Artery Disease, Hyperlipidemia, Hypertension, Myocardial Infarction, Renal Disease (renal transplant, chronic granulomatous lung disease, pulmonary nodules) Denies:: Diabetes Mellitus Type 1, Diabetes Mellitus Type 2, MRSA *Have you ever received a pneumonia vaccine?: Yes *Have you received a flu vaccine this season?: Yes Other Medical History: Reports: Other (diverticulitis) Laterality Cases: Bilateral: Other Other Surgeries: Yes: Cancer Surgery (melanoma removed from nose), Colonoscopy, Colon Resection (d/t diverticulitis), Hernia Repair, Other (prostate surgery, toenail removed, right kidney transplant) Amputation: No Fractures: No - *Social History Educational Level: Completed High School Smoking Status: Former smoker Alcohol Intake: never *Occupational Status:: retired Housing: house Household Members: spouse *Travel in the last 8 weeks: None Family Hx:: Stroke Meds Home Medications Medication Instructions Recorded Confirmed Type Mycophenolate Mofetil 1,000 mg PO BID 03/26/17 11/16/18 History Tacrolimus 2 mg PO BID 03/26/17 11/16/18 History Calcitriol [Calcitriol 0.25mcg 0.25 mcg PO DIRECTED 09/07/17 11/16/18 History Capsule] Doxazosin Mesylate [Doxazosin 2mg 4 mg PO DAILY 09/07/17 11/16/18 History Tab] Finasteride [Proscar 5mg Tablet] 5 mg PO DAILY 09/07/17 11/16/18 History Phosphorus #1 [Phospha 250 Neutral 250 mg PO BID 09/07/17 11/16/18 History Tablet] Vit B12/Folic Acid/B6/Aa15 1 each PO DAILY 09/07/17 11/16/18 History [Glycotrol Capsule] Bromfenac Sodium [Prolensa] 1 drop EYE-BOTH DAILY 11/16/18 11/16/18 History Citalopram Hydrobromide [Celexa 10 mg PO DAILY 11/16/18 11/16/18 History 10mg Tablet] Doxycycline Hyclate [Doxycycline 20 mg PO BID 11/16/18 11/16/18 History 20mg Tablet] Gabapentin [Gabapentin 300mg Cap] 300 mg PO DAILYP PRN 11/16/18 11/16/18 History Allergies Allergy/AdvReac Type Severity Reaction Status Date / Time codeine [CODEINE] Allergy Mild Verified 11/16/18 01:41 iodine [IODINE] Allergy Mild Verified 11/16/18 01:41 Sulfa (Sulfonamide Allergy Verified 11/16/18 01:41 Antibiotics) Review of Systems - *Cardiovascular Reports chest pain, Reports shortness of breath - *Respiratory Reports shortness of breath - *Gastrointestinal Reports abdominal pain, Reports nausea, Denies vomiting - *Genitourinary Denies blood in urine - *Musculoskeletal Denies joint pain, Denies back pain - *Neurologic Reports headache(s), Reports dizziness, Reports weakness Exam Vital signs and Labs for Last 24 Hours: Temp Pulse Resp BP Pulse Ox 97.8 F 80 18 104/63 L 97 11/16/18 08:00 11/16/18 08:00 11/16/18 08:00 11/16/18 08:00 11/16/18 09:02 Laboratory Results - last 24 hr 11/16/18 01:40: Urine Color Yellow, Urine Appearance Clear, Urine pH 6.5, Ur Specific [place] 1.025, Urine Protein Negative, Urine Glucose (UA) Negative, Urine Ketones Negative, Urine Blood Negative, Urine Nitrate Negative, Urine Bilirubin Negative, Urine Urobilinogen 0.2, Ur Leukocyte Esterase Negative, Urine WBC 3-5, Ur Squamous Epith Cells Occasional, Urine Bacteria Trace 11/16/18 01:40: WBC 10.5, RBC 4.95, Hgb 14.9, Hct 45.5, MCV 92.0, MCH 30.1, MCHC 32.7, RDW 13.9, Plt Count 144, MPV 9.1, Neut % (Auto) 75.0, Lymph % (Auto) 15.1, [place] % (Auto) 8.4, Eos % (Auto) 1.1, Baso % (Auto) 0.3, Neut # (Auto) 7.9 H, Lymph # (Auto) 1.6, [place] # (Auto) 0.9, Eos # (Auto) 0.1, Baso # (Auto) 0.0 11/16/18 01:40: Sodium 138, Potassium 3.8, Chloride 103, Carbon Dioxide 24, Anion Gap 14.8, BUN 16, Creatinine 1.22, Estimated Creat Clear 52, Estimated GFR 57 L, Est GFR ( Amer) 68, Glucose 129 H, Calcium 8.6, Total Bilirubin 0.5, AST 14 L, ALT 13, Alkaline Phosphatase 68, Troponin I 0.17 H, Total Protein 6.8, Albumin 3.6, Globulin 3.2, Albumin/Globulin Ratio 1.1, Amylase 61, Lipase 114 11/16/18 03:43: Troponin I 0.18 H I & O for Last 24 hours: Intake & Output 11/13/18 11/14/18 11/15/18 11/16/18 11:59 11:59 11:59 11:59 Weight 185 lb 7 oz - *Routine HEENT Exam Head: Present: normocephalic Eye: Present: EOMI, PERRL ENT: Present: mucous membranes moist - *Routine Neck Exam Present: supple. Absent: JVD, carotid bruit - *Routine Respiratory Exam Present: CTA bilaterally. Absent: accessory muscle use, rales, rhonchi, wheezes - *Routine Cardiovascular Exam Present: RRR. Absent: murmur, gallop, rubs - *Routine Abdominal Exam Present: soft, tenderness. Absent: distended, guarding - *Routine Extremities Exam Absent: edema, calf tenderness - *Routine Neurological Exam Present: alert, oriented X3, moving all extremities Assessment and Plan (1) Chest pain Current visit: No Status: Acute Qualifiers: Chest pain type: unspecified Qualified Code(s): R07.9 - Chest pain, unspecified Category: Medical Code(s): R07.9 - Chest pain, unspecified (2) Diverticulitis Current visit: Yes Status: Acute Category: Medical Code(s): K57.92 - Diver ticulitis of intestine, part unspecified, without perforation or abscess without bleeding (3) Elevated troponin I level Current visit: Yes Status: Acute Category: Medical Code(s): R74.8 - Abnormal levels of other serum enzymes (4) Renal transplant recipient Current visit: Yes Status: Chronic Category: Surgical Code(s): Z94.0 - Kidney transplant status (5) Hypertension Current visit: Yes Status: Chronic Category: Medical Code(s): I10 - Essential (primary) hypertension (6) Hyperlipidemia Current visit: Yes Status: Chronic Category: Medical Code(s): E78.5 - Hyperlipidemia, unspecified - Assessment and plan all Dx Assessment and Plan for all problems:: 1. Elevated troponin and chest pain consistent with NSTEMI. Echocardiogram shows normal left ventricular size and function with no wall motion abnormalities. 2. Discussed with Dr. Staples who came to see the patient and daughter and discussed the options of medical therapy vs diagnostic and possibly therapeutic cath. Pt and daughter accepted Dr. Staples's recommendation of cardiac cath and wish to proceed with it today. Will pre-treat with IV steroids and benadryl. 3. Further recommendations to follow.
--- NOTE | 2018-11-16 11:04 | Electrocardiograph Report ---
APPROVED REPORT Exam: Resting ECG HR:71 bpm ECG Measurements Heart Rate 71 AXES [place] 142 P 51 QRSd 80 QRS 36 QT 352 T53 QTc 382 <Conclusion> Normal sinus rhythm Normal ECG Electronically signed by : Kristopher Chicas, 11/16/2018 11:03:23
--- NOTE | 2018-11-19 14:21 | Discharge Summary ---
General - General Admission date:: 11/16/18 Discharge date: 11/16/18 HPI HPI: Mr. James is an 83-year-old male with a history of hypertension, hyperlipidemia, OH, diverticulitis, hyperparathyroidism, and is status post kidney transplant and followed by the transplant team. He states over the past few weeks he has had some brief episodes of midsternal chest pain, the longest lasting 30 minutes and resolving on its own. Yesterday he began having pain all across his chest that radiated into his left arm, into his back, and up his neck. The pain was not resolving. He also had some difficulty swallowing, became extremely tired, and was diaphoretic. He had some pain in his left lower abdomen as well. He presented to the emergency room and was found to have an elevated troponin. A nitro patch was placed and he was given morphine. He st ates his pain has now resolved and has not returned. A CT also revealed diverticulitis at the junction of the descending colon and the sigmoid colon. The patient was admitted and cardiology was consulted. He was also started on antibiotics for the diverticulitis. Hospital Course Hospital Course: The patient was started on IV antibiotics for diverticulitis and cardiology was consulted. Cardiology felt he would need a heart cath as his findings were consistent with an NSTEMI. He had an echo showing a normal left ventricular size and function with no wall motion abnormalities. He was pretreated with IV steroids and Benadryl and a heart cath was done. He had a stent placed in the dominant right coronary artery and was started on Brilinta and aspirin for 1 year. Cardiology recommended cardiac rehab. He was able to tolerate a diet after the procedure and did well. He was stable to be discharged home on continued antibiotics for his diverticulitis and will follow up with both Dr. Gavin and Dr. Staples. Objective Vital signs: Temp Pulse Resp BP Pulse Ox 97.8 F 75 18 147/80 H 96 11/16/18 08:00 11/16/18 18:10 11/16/18 18:10 11/16/18 18:10 11/16/18 18:10 Narrative: - Constitutional no acute distress - *Routine HEENT Exam Head: Present: normocephalic Eye: Present: EOMI, PERRL ENT: Present: mucous membranes moist - *Routine Neck Exam Present: supple. Absent: lymphadenopathy - *Routine Respiratory Exam Present: CTA bilaterally - *Routine Cardiovascular Exam Present: RRR - *Routine Abdominal Exam Present: soft, normoactive bowel sounds, tenderness (LLQ ) - *Routine Extremities Exam Absent: cyanosis, clubbing, edema - *Routine Skin Exam Present: warm. Absent: rash - *Routine Neurological Exam Present: alert, oriented X3 DS: Diagnosis - Discharge Diagnosis (1) Chest pain Status: Acute (2) Diverticulitis Status: Acute (3) Elevated troponin I level Status: Acute (4) Renal transplant recipient Status: Chronic (5) Hypertension Status: Chronic (6) Hyperlipidemia Status: Chronic (7) NSTEMI (non-ST elevated myocardial infarction) Status: Acute Discharge Plan - Patient Discharge Instructions ACTIVITY: Continue current activity, Ambulate as tolerated, No heavy lifting DIET: cardiac Patient Instructions: DI for Cardiac Catheterization, DI for Diverticulitis, DI for Surgical Site Infection - Follow up Plan Follow up with: Neo Gavin MD [Primary Care Provider] - 2 days King Staples MD [Staff Physician] - 1 week Disposition: Home, Self-Senior Living Medications: Home Medications Medication Instructions Recorded Confirmed Type Mycophenolate Mofetil 1,000 mg PO BID 03/26/17 11/19/18 History Calcitriol [Calcitriol 0.25mcg 0.25 mcg PO DIRECTED 09/07/17 11/19/18 History Capsule] Doxazosin Mesylate [Doxazosin 2mg 4 mg PO DAILY 09/07/17 11/19/18 History Tab] Finasteride [Proscar 5mg Tablet] 5 mg PO DAILY 09/07/17 11/19/18 History Vit B12/Folic Acid/B6/Aa15 1 each PO DAILY 09/07/17 11/19/18 History [Glycotrol Capsule] Aspirin [Aspirin 81mg EC Tab] 81 mg PO DAILY 30 Days #30 11/16/18 11/19/18 Rx tablet. Atorvastatin Calcium [Lipitor 40mg 40 mg PO HS 30 Days #30 tab 11/16/18 11/19/18 Rx Tablet] Bromfenac Sodium [Prolensa] 1 drp EYE-BOTH DAILY 11/16/18 11/19/18 History Citalopram Hydrobromide [Celexa 10 mg PO DAILY 11/16/18 11/19/18 History 10mg Tablet] Doxycycline Hyclate [Doxycycline 20 mg PO BID 11/16/18 11/19/18 History 20mg Tablet] Gabapentin [Gabapentin 300mg Cap] 300 mg PO DAILYP PRN 11/16/18 11/19/18 History Ondansetron HCl [Zofran 4mg Tab] 4 mg PO TID PRN #21 tab 11/16/18 11/19/18 Rx levoFLOXacin [Levaquin 500mg 500 mg PO DAILY #7 tab 11/16/18 11/19/18 Rx tab] metroNIDAZOLE [Flagyl 500mg 500 mg PO TID 7 Days #21 tab 11/16/18 11/19/18 Rx Tablet] clopidogrel 75 mg tablet 75 mg PO DAILY 11/19/18 11/19/18 History sodium di- and 1 tab PO DIRECTED tab 11/19/18 11/19/18 History monophosphate-potassium phos monobasic 250 mg tablet tacrolimus 1 mg capsule 1 mg PO DIRECTED cap 11/19/18 11/19/18 History Prescriptions/Medication Reconciliation: New levoFLOXacin [Levaquin 500mg tab] 500 mg PO DAILY #7 tab Atorvastatin Calcium [Lipitor 40mg Tablet] 40 mg PO HS 30 Days #30 tab metroNIDAZOLE [Flagyl 500mg Tablet] 500 mg PO TID 7 Days #21 tab Ondansetron HCl [Zofran 4mg Tab] 4 mg PO TID PRN #21 tab PRN Reason: Nausea Aspirin [Aspirin 81mg EC Tab] 81 mg PO DAILY 30 Days #30 tablet.dr Continued Finasteride [Proscar 5mg Tablet] 5 mg PO DAILY Doxazosin Mesylate [Doxazosin 2mg Tab] 4 mg PO DAILY Citalopram Hydrobromide [Celexa 10mg Tablet] 10 mg PO DAILY Bromfenac Sodium [Prolensa] 1 drp EYE-BOTH DAILY Mycophenolate Mofetil 1,000 mg PO BID Vit B12/Folic Acid/B6/Aa15 [Glycotrol Capsule] 1 each PO DAILY Calcitriol [Calcitriol 0.25mcg Capsule] 0.25 mcg PO DIRECTED Doxycycline Hyclate [Doxycycline 20mg Tablet] 20 mg PO BID Gabapentin [Gabapentin 300mg Cap] 300 mg PO DAILYP PRN PRN Reason: PAIN No Action tacrolimus 1 mg capsule 1 mg PO DIRECTED cap sodium di- and monophosphate-potassium phos monobasic 250 mg tablet 1 tab PO DIRECTED tab clopidogrel 75 mg tablet 75 mg PO DAILY - Problem Reconciliation Problems Reviewed?: Yes
== END 2018-11-16 18:28 | disposition home or self-care (01) | DRG 247 ==
LOC: ER 01:23 → 2ND 04:54
PROVIDERS: ADMIT Emergency Medicine; ATTEND Emergency Medicine
DX: I25.2 Old myocardial infarction; Z85.820 Personal history of malignant melanoma of skin; I21.4 Non-ST elevation (NSTEMI) myocardial infarction; Z94.0 Kidney transplant status; K57.32 Diverticulitis of large intestine without perforation or abscess without bleeding; E21.3 Hyperparathyroidism, unspecified; I25.10 Atherosclerotic heart disease of native coronary artery without angina pectoris; J84.10 Pulmonary fibrosis, unspecified; I50.30 Unspecified diastolic (congestive) heart failure; I11.0 Hypertensive heart disease with heart failure
CPT/HCPCS: 71020; 71046; 74176; 80053; 81001; 82150; 83690; 84484; 85025; 85347; 92928; 93005; 93306; 93458; 96365; 96367; 96375; 99152; 99153; 99284; C1725; C1769; C1876; C9600; J1644; J1956; J2405; Q9967

== ENCOUNTER → 2018-11-20 14:35 | Outpatient (CLI) | payer MEDICARE, BC, SELFPAY ==
--- NOTE | 2018-11-20 14:38 | CA_ITS ---
APPROVED REPORT Right Lower Extremity Venous Study for DVT. Manager Non Profit: DRE Indications Lower Extremity Edema: Right Shortness of breath CAD Risk Factors Cardiac Disease CAD Medications Brilinta Vein Imaging CFV (R): compressive, spontaneous, phasic, augmentation FEM (R): compressive, spontaneous, phasic, augmentation POP (R): compressive, spontaneous, phasic, augmentation PTV (R): Compressible GSV (R): Compressible Peroneals (R):Compressible GAS (R): Compressible Conclusion Color flow duplex demonstrates no evidence of DVT of the right lower extremity Veins. Color flow duplex demonstrates no evidence of SVT of the Small and Great Saphenous Veins. Electronically signed by : Joselito Dupont MD 11/22/2018 16:26:29
== END ==
PROVIDERS: PCP Family Medicine; Visit Provider Nurse Practitioner Family
DX: R60.0 Localized edema (principal)
CPT/HCPCS: 93971

== ENCOUNTER 2018-11-27 14:11 | Outpatient (RCR) | payer MEDICARE, BC, SELFPAY | END 2019-01-28 13:30 | disposition home or self-care (01) | LOC: PT 14:11 | PROVIDERS: Visit Provider Internal Medicine | DX: Z95.5 Presence of coronary angioplasty implant and graft (principal) ==

== ENCOUNTER → 2018-12-24 08:23 | Outpatient (CLI) | payer MEDICARE, BC, SELFPAY ==
[2018-12-24 08:30] LABS: Microscopic, Urine URINE MICROSCOPIC (MICROSCOPIC)
[2018-12-24 09:05] LABS: Appearance,Urine CLEAR (Clear); Bilirubin,Urine Negative (Negative); Blood, Urine Negative (Negative); Color,Urine YELLOW (Yellow); Glucose,Urine (UA) Negative (Negative); Ketones,Urine Negative (Negative); Leukocyte Esterase,Urine Negative (Negative); Nitrate,Urine Negative (Negative); Protein,Urine Negative (Negative); Specific Gravity, Urine >= 1.030 (1.005-1.030); Urobilinogen,Urine 0.2 EU/dl (0.2)
[2018-12-24 09:22] LABS: Creatinine,Urine Random 173 mg/dL (20-320); Total Protein,Urine Random 28.1 mg/dL (0.0-11.9)
[2018-12-24 09:39] LABS: Bacteria,Urine Trace /lpf; RBC,Urine Occasional #/hpf (0-3); Squamous Epithelial Cell,Urine Occasional #/hpf (0-5)
[2018-12-24 10:45] LABS: Alanine Aminotransferase 15 U/L (12-78); Albumin Level 3.6 gm/dL (3.4-5.0); Alkaline Phosphatase 69 U/L (46-116); Aspartate Amino Transferase 12 U/L (15-37); Bilirubin,Direct 0.2 mg/dL (0.0-0.2); Bilirubin,Indirect 0.4 mg/dL (0.0-0.9); Bilirubin,Total 0.6 mg/dL (0.2-1.0); Chol/HDL Ratio 2.8 (1-3.5); Cholesterol 127 mg/dL (140-200); HDL Cholesterol 46 mg/dL (27-67); LDL Cholesterol 67 mg/dL (0-130); Total Protein,Serum 6.3 gm/dL (6.4-8.2); Triglycerides 71 mg/dL (30-200); VLDL Cholesterol 14 mg/dL (0-40)
[2018-12-24 10:51] LABS: Albumin Level 3.6 gm/dL (3.4-5.0); Anion Gap 15.4 mEq/L (5-15); Blood Urea Nitrogen 20 mg/dL (7-18); Carbon Dioxide 23 mmol/L (21.0-32.0); Chloride 107 mmol/L (98-107); Creatinine,Serum 1.13 mg/dL (0.70-1.30); Estimated Glomerular Filt Rate 62 ml/min (>60); GFR (African American) 75 ML/MIN (>60); Glucose 118 mg/dL (74-106); Phosphorous 2.8 mg/dL (2.4-4.9); Potassium 4.4 mmoL/L (3.5-5.1); Sodium 141 mmol/L (136-145)
[2018-12-26 08:21] LABS: Parathyroid Hormone Intact 61 pg/mL (15-65)
[2018-12-27 21:06] LABS: Tacrolimus (FK506), Blood 8.6 ng/mL (2.0-20.0)
== END ==
PROVIDERS: Nurse Practitioner Family; Visit Provider Internal Medicine Nephrology
DX: E78.5 Hyperlipidemia, unspecified (principal); I25.10 Atherosclerotic heart disease of native coronary artery without angina pectoris; N18.3 Chronic kidney disease, stage 3 (moderate); Z94.0 Kidney transplant status
CPT/HCPCS: 36415; 80061; 80069; 80076; 80197; 81001; 82570; 83970; 84155

== ENCOUNTER → 2019-08-24 07:08 | Outpatient (CLI) | payer MEDICARE, BC, SELFPAY ==
[2019-08-24 07:18] LABS: Microscopic, Urine URINE MICROSCOPIC (MICROSCOPIC)
[2019-08-24 08:41] LABS: Basophils % 0.4 % (0.1-2.0); Eosinophils # 0.2 K/mm3 (0.0-0.4); Eosinophils % 3.4 % (0.1-12.0); Hematocrit 40.1 % (42.0-52.0); Hemoglobin 13.1 g/dL (14.1-18.0); Lymphocytes # 1.2 K/mm3 (0.7-4.5); Lymphocytes % 22.9 % (10-50); Mean Corpuscular HGB Conc 32.7 g/dL (31.8-35.4); Mean Corpuscular Hemoglobin 30.7 pg (27.0-31.2); Mean Corpuscular Volume 93.8 fl (80-94); Mean Platelet Volume 9.1 fl (7.4-10.4); Monocytes # 0.5 K/mm3 (0.1-1.0); Monocytes % 10.2 % (1.7-9.3); Neutrophils # 3.3 K/mm3 (1.8-7.8); Neutrophils % 63.2 % (37.0-80.0); Platelet Count 123 K/mm3 (142-424); Red Blood Count 4.28 M/mm3 (4.60-6.20); Red Cell Distribution Width 13.9 % (11.5-17.5); White Blood Count 5.2 K/mm3 (4.8-10.8)
[2019-08-24 09:33] LABS: Appearance,Urine CLEAR (Clear); Bilirubin,Urine Negative (Negative); Blood, Urine Negative (Negative); Color,Urine YELLOW (Yellow); Glucose,Urine (UA) Negative (Negative); Ketones,Urine Negative (Negative); Leukocyte Esterase,Urine Negative (Negative); Nitrate,Urine Negative (Negative); Protein,Urine Negative (Negative); Urobilinogen,Urine 0.2 EU/dl (0.2)
[2019-08-24 09:40] LABS: RBC,Urine Occasional #/hpf (0-3); Squamous Epithelial Cell,Urine Occasional #/hpf (0-5)
[2019-08-24 09:49] LABS: Albumin Level 3.9 g/dl (3.5-5.0); Chloride 105 mmol/L (98-107); Potassium 5.2 mmoL/L (3.5-5.1); Sodium 135 mmol/L (136-145)
[2019-08-24 09:51] LABS: Blood Urea Nitrogen 21 mg/dl (9-20); Estimated Glomerular Filt Rate 58 ml/min (>60); GFR (African American) 70 ML/MIN (>60)
[2019-08-24 09:52] LABS: Anion Gap 11.2 mEq/L (5-15); Calcium 8.9 mg/dl (8.4-10.2); Carbon Dioxide 24 mmol/L (22.0-30.0); Glucose 109 mg/dl (74-100); Magnesium 1.7 mg/dl (1.6-2.3); Phosphorous 4.3 mg/dl (2.5-4.5)
== END ==
PROVIDERS: Visit Provider Internal Medicine Nephrology
DX: N18.9 Chronic kidney disease, unspecified (principal); Z94.0 Kidney transplant status; Z79.899 Other long term (current) drug therapy
CPT/HCPCS: 36415; 80069; 81001; 83735; 85025

== ENCOUNTER → 2019-09-17 07:49 | Outpatient (CLI) | payer MEDICARE, BC, SELFPAY ==
[2019-09-17 07:55] LABS: Microscopic, Urine URINE MICROSCOPIC (MICROSCOPIC)
[2019-09-17 08:33] LABS: Appearance,Urine CLEAR (Clear); Bilirubin,Urine Negative (Negative); Blood, Urine Negative (Negative); Color,Urine YELLOW (Yellow); Glucose,Urine (UA) Negative (Negative); Ketones,Urine Negative (Negative); Leukocyte Esterase,Urine Negative (Negative); Nitrate,Urine Negative (Negative); Protein,Urine Negative (Negative); Urobilinogen,Urine 0.2 EU/dl (0.2)
[2019-09-17 08:56] LABS: Amorphous Sediment,Urine 1+ /lpf
[2019-09-17 08:58] LABS: Basophils % 0.6 % (0.1-2.0); Eosinophils # 0.2 K/mm3 (0.0-0.4); Eosinophils % 4.2 % (0.1-12.0); Hematocrit 44.3 % (42.0-52.0); Hemoglobin 14.3 g/dL (14.1-18.0); Lymphocytes % 19.5 % (10-50); Mean Corpuscular HGB Conc 32.2 g/dL (31.8-35.4); Mean Corpuscular Hemoglobin 30.8 pg (27.0-31.2); Mean Corpuscular Volume 95.6 fl (80-94); Mean Platelet Volume 9.2 fl (7.4-10.4); Monocytes # 0.4 K/mm3 (0.1-1.0); Monocytes % 8.3 % (1.7-9.3); Neutrophils # 3.3 K/mm3 (1.8-7.8); Neutrophils % 67.4 % (37.0-80.0); Platelet Count 154 K/mm3 (142-424); Red Blood Count 4.64 M/mm3 (4.60-6.20); Red Cell Distribution Width 14.1 % (11.5-17.5); White Blood Count 4.9 K/mm3 (4.8-10.8)
[2019-09-17 09:13] LABS: Albumin Level 3.8 g/dl (3.5-5.0); Chloride 104 mmol/L (98-107); Potassium 4.7 mmoL/L (3.5-5.1); Sodium 137 mmol/L (136-145)
[2019-09-17 09:16] LABS: Anion Gap 13.7 mEq/L (5-15); Blood Urea Nitrogen 19 mg/dl (9-20); Carbon Dioxide 24 mmol/L (22.0-30.0); Estimated Glomerular Filt Rate 58 ml/min (>60); GFR (African American) 70 ML/MIN (>60); Phosphorous 3.1 mg/dl (2.5-4.5)
[2019-09-17 09:17] LABS: Glucose 114 mg/dl (74-100); Magnesium 1.8 mg/dl (1.6-2.3)
== END ==
PROVIDERS: Visit Provider Internal Medicine Nephrology
DX: Z94.0 Kidney transplant status (principal); N18.9 Chronic kidney disease, unspecified; Z79.899 Other long term (current) drug therapy
CPT/HCPCS: 36415; 80069; 81001; 83735; 85025

== ENCOUNTER → 2019-10-02 07:19 | Outpatient (CLI) | payer MEDICARE, BC, SELFPAY ==
[2019-10-02 07:22] LABS: Microscopic, Urine URINE MICROSCOPIC (MICROSCOPIC)
[2019-10-02 08:15] LABS: Basophils % 0.5 % (0.1-2.0); Eosinophils # 0.2 K/mm3 (0.0-0.4); Eosinophils % 3.4 % (0.1-12.0); Hematocrit 41.5 % (42.0-52.0); Hemoglobin 13.5 g/dL (14.1-18.0); Lymphocytes # 1.1 K/mm3 (0.7-4.5); Lymphocytes % 19.7 % (10-50); Mean Corpuscular HGB Conc 32.5 g/dL (31.8-35.4); Mean Corpuscular Hemoglobin 30.8 pg (27.0-31.2); Mean Corpuscular Volume 94.6 fl (80-94); Mean Platelet Volume 8.8 fl (7.4-10.4); Monocytes # 0.5 K/mm3 (0.1-1.0); Monocytes % 8.2 % (1.7-9.3); Neutrophils # 3.9 K/mm3 (1.8-7.8); Neutrophils % 68.1 % (37.0-80.0); Platelet Count 132 K/mm3 (142-424); Red Blood Count 4.39 M/mm3 (4.60-6.20); Red Cell Distribution Width 14.2 % (11.5-17.5); White Blood Count 5.7 K/mm3 (4.8-10.8)
[2019-10-02 09:11] LABS: Appearance,Urine CLEAR (Clear); Bilirubin,Urine Negative (Negative); Blood, Urine Negative (Negative); Color,Urine YELLOW (Yellow); Glucose,Urine (UA) Negative (Negative); Ketones,Urine Negative (Negative); Leukocyte Esterase,Urine Negative (Negative); Nitrate,Urine Negative (Negative); PH,Urine 5.5 (5.0-8.5); Protein,Urine Negative (Negative); Specific Gravity, Urine >= 1.030 (1.005-1.030); Urobilinogen,Urine 0.2 EU/dl (0.2)
[2019-10-02 10:47] LABS: Albumin Level 3.7 g/dl (3.5-5.0); Chloride 106 mmol/L (98-107); Potassium 4.3 mmoL/L (3.5-5.1); Sodium 139 mmol/L (136-145)
[2019-10-02 10:50] LABS: Anion Gap 12.3 mEq/L (5-15); Blood Urea Nitrogen 20 mg/dl (9-20); Calcium 8.7 mg/dl (8.4-10.2); Carbon Dioxide 25 mmol/L (22.0-30.0); Estimated Glomerular Filt Rate 71 ml/min (>60); GFR (African American) 86 ML/MIN (>60); Glucose 110 mg/dl (74-100); Magnesium 1.7 mg/dl (1.6-2.3); Phosphorous 3.4 mg/dl (2.5-4.5)
== END ==
PROVIDERS: Visit Provider Internal Medicine Nephrology
DX: N18.9 Chronic kidney disease, unspecified (principal); Z94.0 Kidney transplant status; Z79.899 Other long term (current) drug therapy
CPT/HCPCS: 36415; 80069; 81001; 83735; 85025

== ENCOUNTER → 2019-10-16 07:02 | Outpatient (CLI) | payer MEDICARE, BC, SELFPAY ==
[2019-10-16 07:09] LABS: Microscopic, Urine URINE MICROSCOPIC (MICROSCOPIC)
[2019-10-16 07:43] LABS: Basophils % 0.4 % (0.1-2.0); Eosinophils # 0.2 K/mm3 (0.0-0.4); Hematocrit 40.7 % (42.0-52.0); Hemoglobin 13.3 g/dL (14.1-18.0); Lymphocytes # 1.2 K/mm3 (0.7-4.5); Lymphocytes % 22.1 % (10-50); Mean Corpuscular HGB Conc 32.8 g/dL (31.8-35.4); Mean Corpuscular Hemoglobin 30.5 pg (27.0-31.2); Mean Corpuscular Volume 93.1 fl (80-94); Mean Platelet Volume 8.6 fl (7.4-10.4); Monocytes # 0.6 K/mm3 (0.1-1.0); Monocytes % 10.2 % (1.7-9.3); Neutrophils # 3.5 K/mm3 (1.8-7.8); Neutrophils % 64.3 % (37.0-80.0); Platelet Count 134 K/mm3 (142-424); Red Blood Count 4.37 M/mm3 (4.60-6.20); Red Cell Distribution Width 14.1 % (11.5-17.5); White Blood Count 5.4 K/mm3 (4.8-10.8)
[2019-10-16 07:48] LABS: Appearance,Urine CLEAR (Clear); Bilirubin,Urine Negative (Negative); Blood, Urine Negative (Negative); Color,Urine YELLOW (Yellow); Glucose,Urine (UA) Negative (Negative); Ketones,Urine Negative (Negative); Leukocyte Esterase,Urine Negative (Negative); Nitrate,Urine Negative (Negative); PH,Urine 6.5 (5.0-8.5); Protein,Urine Negative (Negative); Urobilinogen,Urine 0.2 EU/dl (0.2)
[2019-10-16 08:02] LABS: RBC,Urine Occasional #/hpf (0-3); WBC,Urine Occasional #/hpf (0-3)
[2019-10-16 08:28] LABS: Albumin Level 3.9 g/dl (3.5-5.0); Chloride 108 mmol/L (98-107); Potassium 4.8 mmoL/L (3.5-5.1); Sodium 139 mmol/L (136-145)
[2019-10-16 08:31] LABS: Anion Gap 12.8 mEq/L (5-15); Blood Urea Nitrogen 20 mg/dl (9-20); Calcium 9.2 mg/dl (8.4-10.2); Carbon Dioxide 23 mmol/L (22.0-30.0); Estimated Glomerular Filt Rate 71 ml/min (>60); GFR (African American) 86 ML/MIN (>60); Glucose 106 mg/dl (74-100); Magnesium 1.7 mg/dl (1.6-2.3); Phosphorous 3.7 mg/dl (2.5-4.5)
== END ==
PROVIDERS: PCP Family Medicine; Visit Provider Internal Medicine Nephrology
DX: Z94.0 Kidney transplant status (principal); N18.9 Chronic kidney disease, unspecified
CPT/HCPCS: 36415; 80069; 81001; 83735; 85025

== ENCOUNTER → 2020-01-13 08:27 | Outpatient (CLI) | payer MEDICARE, BC, SELFPAY ==
[2020-01-13 08:32] LABS: Microscopic, Urine URINE MICROSCOPIC (MICROSCOPIC)
[2020-01-13 09:09] LABS: Appearance,Urine CLEAR (Clear); Bilirubin,Urine Negative (Negative); Blood, Urine Negative (Negative); Color,Urine YELLOW (Yellow); Glucose,Urine (UA) Negative (Negative); Ketones,Urine Negative (Negative); Leukocyte Esterase,Urine Negative (Negative); Nitrate,Urine Negative (Negative); Protein,Urine Negative (Negative); Specific Gravity, Urine 1.015 (1.005-1.030); Urobilinogen,Urine 0.2 EU/dl (0.2)
[2020-01-13 09:20] LABS: Chloride 105 mmol/L (98-107); Sodium 136 mmol/L (136-145)
[2020-01-13 09:21] LABS: Albumin Level 4.1 g/dl (3.5-5.0); Potassium 4.8 mmoL/L (3.5-5.1)
[2020-01-13 09:23] LABS: Blood Urea Nitrogen 20 mg/dl (9-20); Estimated Glomerular Filt Rate 58 ml/min (>60); GFR (African American) 70 ML/MIN (>60)
[2020-01-13 09:24] LABS: Anion Gap 10.8 mEq/L (5-15); Basophils % 0.3 % (0.1-2.0); Calcium 9.5 mg/dl (8.4-10.2); Carbon Dioxide 25 mmol/L (22.0-30.0); Eosinophils # 0.1 K/mm3 (0.0-0.4); Eosinophils % 2.3 % (0.1-12.0); Glucose 118 mg/dl (74-100); Hematocrit 46.4 % (42.0-52.0); Hemoglobin 14.7 g/dL (14.1-18.0); Lymphocytes % 19.5 % (10-50); Mean Corpuscular HGB Conc 31.7 g/dL (31.8-35.4); Mean Corpuscular Hemoglobin 29.9 pg (27.0-31.2); Mean Corpuscular Volume 94.2 fl (80-94); Mean Platelet Volume 8.8 fl (7.4-10.4); Monocytes # 0.5 K/mm3 (0.1-1.0); Monocytes % 9.3 % (1.7-9.3); Neutrophils # 3.5 K/mm3 (1.8-7.8); Neutrophils % 68.6 % (37.0-80.0); Phosphorous 3.6 mg/dl (2.5-4.5); Platelet Count 139 K/mm3 (142-424); Red Blood Count 4.93 M/mm3 (4.60-6.20); Red Cell Distribution Width 14.1 % (11.5-17.5); White Blood Count 5.2 K/mm3 (4.8-10.8)
[2020-01-13 09:51] LABS: RBC,Urine Occasional #/hpf (0-3)
[2020-01-16 09:05] LABS: Tacrolimus (FK506), Blood 7.1 ng/mL (2.0-20.0)
== END ==
PROVIDERS: Visit Provider Internal Medicine Nephrology
DX: N18.30 Chronic kidney disease, stage 3 unspecified (principal)
CPT/HCPCS: 36415; 80069; 80197; 81001; 85025

== ENCOUNTER 2020-02-12 09:17 | Inpatient (IN) | payer MEDICARE, BC, SELFPAY ==
[2020-02-12] VITALS (14 sets, daily range): BP systolic 95–142; BP diastolic 56–76; PULSE 66–88; RESP 18–32; TEMP 36.7–37.6; O2SAT 88–98; BMI 29.0; BMI 26.3
--- NOTE | 2020-02-12 09:24 | HMH.EDGENADL ---
ED Disposition Clinical Impression: Atypical pneumonia, COVID-19 Disposition: Admitted As Inpatient Condition on Discharge: Good - Critical Care Critical Care Time: No Attestation: On , the high probability of a clinically significant, sudden or life threatening deterioration of the following system(s) required my full and direct attention, intervention and personal management. The time I documented below is in addition to time spent performing reported procedures but includes the following listed in this critical care notation. Medical Decision Making - Medical Records Medical records reviewed: Yes: I reviewed the patient's medical records. - Ashu Inquiry Pt receiving controlled substance: No Vital Signs: 02/12/20 09:18 02/12/20 09:45 02/12/20 09:55 Temperature 98.7 F Temperature Source Oral Pulse Rate [Right Radial] 88 Respiratory Rate 20 Blood Pressure [Right Arm] 142/76 H Blood Pressure Mean [Right Arm] 98 Blood Pressure Source [Right Arm] Automatic Cuff Blood Pressure Position [Right Arm] Sitting 02 Sat by Pulse Oximetry 95 93 L 95 Oxygen Delivery Method Room Air Room Air Nasal Cannula Oxygen Flow Rate (LPM) 2 02/12/20 09:58 Temperature Temperature Source Pulse Rate [Right Radial] 73 Respiratory Rate Blood Pressure [Right Arm] 126/71 Blood Pressure Mean [Right Arm] 89 Blood Pressure Source [Right Arm] Automatic Cuff Blood Pressure Position [Right Arm] Sitting 02 Sat by Pulse Oximetry 93 L Oxygen Delivery Method Oxygen Flow Rate (LPM) - Lab Data Lab Results 02/12/20 09:19: VBG pH 7.35, VBG pCO2 37.4, VBG pO2 33.7, VBG HCO3 20.0 L, VBG Total CO2 21.1 L, VBG O2 Saturation 63.2, VBG Base Excess -5.7 L 02/12/20 09:34: WBC 4.4 L, RBC 4.99, Hgb 14.9, Hct 46.2, MCV 92.5, MCH 29.9, MCHC 32.4, RDW 14.1, Plt Count 140 L, MPV 8.5, Neut % (Auto) 76.8, Lymph % (Auto) 14.6, [place] % (Auto) 7.8, Eos % (Auto) 0.4, Baso % (Auto) 0.4, Neut # (Auto) 3.4, Lymph # (Auto) 0.7, [place] # (Auto) 0.4, Eos # (Auto) 0.0, Baso # (Auto) 0.0 02/12/20 09:34: Sodium 134 L, Potassium 3.9, Chloride 103, Carbon Dioxide 24, Anion Gap 10.9, BUN 26 H, Creatinine 1.10, Estimated Creat Clear 57, Estimated GFR 64, Est GFR ( Amer) 77, Glucose 91, Calcium 8.8, Total Bilirubin 1.1, AST 39, ALT 27, Alkaline Phosphatase 57, Lactate Dehydrogenase 219 L, Total Protein 6.4, Albumin 3.5, Globulin 2.9, Albumin/Globulin Ratio 1.2 02/12/20 09:34: Lactate 1.0 Result diagrams: 02/12/20 09:34 02/12/20 09:34 Orders (Tests/Meds): ED MEDICATIONS Generic Name Dose Route Start Last Admin Trade Name Freq PRN Reason Stop Dose Admin Azithromycin 500 mg/ Sodium 250 mls @ 250 mls/hr 02/12/20 10:30 Chloride IV 02/26/20 10:29 Q24H [facility] Protocol ORDERS Category Date Time Status Chest XR -- portable [XR chest portable] Stat Exams 02/12/20 09:27 Taken Comprehensive Metabolic Panel Stat Lab 02/12/20 09:34 Results Lactate Dehydrogenase Stat Lab 02/12/20 09:34 Results Troponin I Q3H Lab 02/12/20 12:30 Ordered Troponin I Q3H Lab 02/12/20 15:30 Ordered Troponin I Stat Lab 02/12/20 09:34 Results ECG Request by /Aubrey Stat Y 02/12/20 09:23 Ordered Medical Decision Narrative: 4-year-old male brought in by EMS for further evaluation of shortness of air. Patient hemodynamically stable and nontoxic in appearance upon arrival. Patient maintaining oxygen saturations of approximately 95% on arrival after being on 2 L throughout transport. Differential diagnosis includes but not limited to worsening COVID-19, pneumonia, pneumothorax, myocardial infarction, PE, renal failure of transplanted kidney. Labs obtained including CBC, CMP, lactate, LDH, VBG, troponin profile. EKG obtained and was personally reviewed significant for no acute ST elevation, ST depression, or T wave abnormalities concerning for ACS at this time. Chest x-ray ordered. Chest x-ray personally reviewed and significant for bilatera
--- NOTE | 2020-02-12 09:27 | XR_ITS ---
PROCEDURE: XR CHEST PORTABLE CLINICAL HISTORY: cough, hx covid 19 COMPARISON: No exams were available for comparison FINDINGS: Unremarkable cardiovascular structures. Patchy density is present in both lower lobes consistent with bilateral lower lobe pneumonia ill-defined in nature and may be due to viral/Covid19 pneumonia. No effusions No acute bony abnormalities. IMPRESSION: Bilateral lower lobe pneumonia. Dictated by: Joselito Dupont MD 02/12/2020 11:15 Joselito Dupont MD in OV 02/12/2020 11:15
--- NOTE | 2020-02-12 09:38 | PC.NURSE ---
RT notified of VBG order
--- NOTE | 2020-02-12 09:44 | PC.NURSE ---
pt daughter at BS, ER MD at BS speaking with her.
[2020-02-12 09:48] LABS: Basophils % 0.4 % (0.1-2.0); Eosinophils % 0.4 % (0.1-12.0); Hematocrit 46.2 % (42.0-52.0); Hemoglobin 14.9 g/dL (14.1-18.0); Lymphocytes # 0.7 K/mm3 (0.7-4.5); Lymphocytes % 14.6 % (10-50); Mean Corpuscular HGB Conc 32.4 g/dL (31.8-35.4); Mean Corpuscular Hemoglobin 29.9 pg (27.0-31.2); Mean Corpuscular Volume 92.5 fl (80-94); Mean Platelet Volume 8.5 fl (7.4-10.4); Monocytes # 0.4 K/mm3 (0.1-1.0); Monocytes % 7.8 % (1.7-9.3); Neutrophils # 3.4 K/mm3 (1.8-7.8); Neutrophils % 76.8 % (37.0-80.0); Platelet Count 140 K/mm3 (142-424); Red Blood Count 4.99 M/mm3 (4.60-6.20); Red Cell Distribution Width 14.1 % (11.5-17.5); White Blood Count 4.4 K/mm3 (4.8-10.8)
--- NOTE | 2020-02-12 09:53 | PC.NURSE ---
per pts daughter pt began having COVID 19 symptoms on jan 23, was tested positive on jan 26.
[2020-02-12 09:57] LABS: Chloride 103 mmol/L (98-107); Potassium 3.9 mmoL/L (3.5-5.1); Sodium 134 mmol/L (136-145)
[2020-02-12 10:00] LABS: Alanine Aminotransferase 27 U/L (12-78); Albumin Level 3.5 g/dl (3.5-5.0); Albumin/Globulin Ratio 1.2 (1.1-1.8); Alkaline Phosphatase 57 U/L (38-126); Anion Gap 10.9 mEq/L (5-15); Aspartate Amino Transferase 39 U/L (17-59); Bilirubin,Total 1.1 mg/dl (0.2-1.3); Blood Urea Nitrogen 26 mg/dl (9-20); Calcium 8.8 mg/dl (8.4-10.2); Carbon Dioxide 24 mmol/L (22.0-30.0); Creatinine Clearance Estimated 57 mL/min (50-200); Estimated Glomerular Filt Rate 64 ml/min (>60); GFR (African American) 77 ML/MIN (>60); Globulin 2.9 g/dL (1.3-3.2); Glucose 91 mg/dl (74-100); Lactate Dehydrogenase 219 U/L (313-618); Total Protein,Serum 6.4 g/dl (6.3-8.2)
[2020-02-12 10:00] LABS: VBG Base Excess -5.7 mmol/L (-2.4-2.3); VBG Oxygen Saturation 63.2 % (50-70); VBG PCO2 37.4 mmol/L (35-51); VBG PH 7.35 mmol/L (7.31-7.41); VBG PO2 33.7 mmol/L (28-40); VBG Total CO2 21.1 mmol/L (23-27)
--- NOTE | 2020-02-12 10:33 | ECG_ITS ---
APPROVED REPORT Exam: Resting ECG HR:67 bpm ECG Measurements Heart Rate 67 AXES SC 122 P 38 QRSd 82 QRS 14 QT 398 T 58 QTc 420 Conclusion Normal sinus rhythm Normal ECG Electronically signed by : Kristopher Chicas, 02/14/2020 08:06:19
--- NOTE | 2020-02-12 10:42 | PC.NURSE ---
notified lab of new order on pt, spoke with alayna
--- NOTE | 2020-02-12 10:47 | PC.NURSE ---
Dr Hassan speaking with Dr Gavin
[2020-02-12 11:10] LABS: Coronavirus 19 IgG Antibody Negative (Negative); Coronavirus 19 IgM Antibody Negative (Negative)
--- NOTE | 2020-02-12 11:27 | PC.NURSE ---
Covid swab sent to lab by Abhishek Manzo RN
--- NOTE | 2020-02-12 11:30 | PC.NURSE ---
pt is pending bed assignment awaiting covid swab results.
--- NOTE | 2020-02-12 11:37 | PC.NURSE ---
spoke with JACK Zacarias (DON) r/t room placement for pt, (infection control nurse unavailable at this time). Notified her of pt igg/igm negative status, pt hx of recent covid 19 (diagnosed on jan 26), pt presenting symptoms and chest xray finding per ER MD. Deann states to ask ER MD if he would like to swab pt for covid and then based on those results bed assignment will be made for pt. pt/family updated on this poc. pt resting in bed, will continue to monitor.
[2020-02-12 11:39] LABS: Adenovirus,PCR Not Detected (NotDetected); Bordetella Pertussis Not Detected (NotDetected); Chlamydophila Pneumoniae, PCR Not Detected (NotDetected); Coronavirus 229E Not Detected (NotDetected); Coronavirus NL63 Not Detected (NotDetected); Coronavirus OC43 Not Detected (NotDetected); Coronovirus HKU1,PCR Not Detected (NotDetected); Human Metapneumovirus Not Detected (NotDetected); Influenza A, PCR Not Detected (NotDetected); Influenza AH1, 2009 Not Detected (NotDetected); Influenza AH1, PCR Not Detected (NotDetected); Influenza AH3,PCR Not Detected (NotDetected); Influenza B, PCR Not Detected (NotDetected); Mycoplasma Pneumoniae, PCR Not Detected (NotDetected); Parainfluenza 1, PCR Not Detected (NotDetected); Parainfluenza 2, PCR Not Detected (NotDetected); Parainfluenza 3, PCR Not Detected (NotDetected); Parainfluenza 4, PCR Not Detected (NotDetected); Respiratory Syncytial Virus Not Detected (NotDetected); Rhinovirus/Enterovirus Not Detected (NotDetected)
[2020-02-12 13:00] LABS: Troponin I < 0.01 ng/ml (0.00-0.034)
--- NOTE | 2020-02-12 13:12 | PC.NURSE ---
carlos in lab states approx 30 minutes left of covid swab.
--- NOTE | 2020-02-12 13:21 | PC.NURSE ---
pt repositioned, pt requested to sit up on side of bed r/t not comfortable laying in bed. dietary called for a tray for pt.
[2020-02-12 13:36] LABS: Coronavirus 19, PCR Detected (NotDetected)
--- NOTE | 2020-02-12 13:36 | PC.NURSE ---
lab called states pt covid swab is positive notified ER contacted care management for bed assignment
--- NOTE | 2020-02-12 14:19 | PC.NURSE ---
pt daughter at , states pt would like to try and eat before being transported to the covid unit.
--- NOTE | 2020-02-12 14:38 | HMH.HP ---
*Admission Date: 02/12/20 *Chief complaint: shortness of breath *History of present illness: Did on the elevator Mr. 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 Patient states he was extremely short of breath and his daughter states his O2 sats dropped to 86 and she brought him to the emergency room. He denies having chest pain. He does have a nonproductive cough. He is short of breath. He is not been eating as well. He denies fever and other respiratory symptoms. He has had no vomiting and no diarrhea. The following is from documentation in the emergency room: 84-year-old male brought in by EMS for further evaluation of shortness of air. Patient hemodynamically stable and nontoxic in appearance upon arrival. Patient maintaining oxygen saturations of approximately 95% on arrival after being on 2 L throughout transport. Differential diagnosis includes but not limited to worsening COVID-19, pneumonia, pneumothorax, myocardial infarction, PE, renal failure of transplanted kidney. Labs obtained including CBC, CMP, lactate, LDH, VBG, troponin profile. EKG obtained and was personally reviewed significant for no acute ST elevation, ST depression, or T wave abnormalities concerning for ACS at this time. Chest x-ray ordered. Chest x-ray personally reviewed and significant for bilateral patchy opacifications concerning for COVID-19 pneumonia versus atypical pneumonia. Labs significant for neutropenia of 4.4. Started patient on ceftriaxone and azithromycin for community-acquired pneumonia. Patient's oxygen saturation dropped below 90% on room air in emergency department, so patient was started on 2 L nasal cannula. Admitted patient to internal medicine due to new oxygen requirement secondary to COVID-19 and pneumonia. HPI narrative: 84-year-old male brought in by EMS for further evaluation in the emergency department of shortness of air. Per report from EMS/family patient tested positive for COVID-19 on 01/23. Over the past several days patient started having worsening difficulty breathing. Per report from daughter patient's oxygen saturation was below 90% at home today on room air so she called EMS. EMS started patient on 2 L nasal cannula with improvement of oxygen saturation to 98%. Patient reports mildly increased difficulty breathing at this time. Patient states that he has had intermittent cough with yellowish sputum. Denies any fevers in over 1 week. Denies any chest pain. Denies any abdominal pain. Denies any other symptoms at this time. The above is from documentation in the ER. With evaluation in the emergency room temp was 98.7. ABG still showed a pH of 7.35 PCO2 of 37.4 PO2 of 33.7 from a venous sample. White blood cell count was 4400. Electrolytes with a slightly low sodium at 134 and otherwise was normal. BUN 26 creatinine 1.10. LDH was 219 and liver function studies were otherwise normal. Patient was started on Zithromax and will be started also on Rocephin IV. Chest x-ray revealed bilateral lower lobe pneumonia. Thus patient was admitted to the Covid unit with routine Covid orders. At the time of this exam patient does not feel well. His O2 stats have been stable. [facility] History Medical History: Reports:: BPH, Cancer, Coronary Artery Disease, Hyperlipidemia, Hypertension, Myocardial Infarction, Renal Disease (renal transplant, chronic granulomatous lung disease, pulmonary nodules) Denies:: Diabetes Mellitus Type 1, Diabetes Mellitus Type 2, MRSA *Have you ever received a pneumonia vaccine?: No *Have you received a fl
--- NOTE | 2020-02-12 15:51 | P.CONPHA_ITS ---
[facility] Pharmacy VTE Monitoring - Patient Demographics Admission date: 02/12/20 Report Date: 02/12/20 Time: 15:51 Allergies/Adverse Reactions: Patient Allergies codeine [CODEINE] Allergy (Mild, Verified 08/19/19 11:21) iodine [IODINE] Allergy (Mild, Verified 08/19/19 11:21) Sulfa (Sulfonamide Antibiotics) Allergy (Verified 08/19/19 11:21) Height: 1.68 m Weight: 81.647 kg Patient Problems: Current Active Problems (Last Updated 11/19/18 @ 12:05 by Yoko Monroe RN) Atypical pneumonia (Acute) COVID-19 (Acute) - VTE Risk Labs: VTE Related Lab Results Hgb 14.9 g/dL (14.1-18.0) 02/12/20 09:34 Hct 46.2 % (42.0-52.0) 02/12/20 09:34 Plt Count 140 K/mm3 (142-424) L 02/12/20 09:34 BUN 26 mg/dl (9-20) H 02/12/20 09:34 Creatinine 1.10 mg/dl (0.66-1.25) 02/12/20 09:34 Estimated Creat Clear 57 mL/min (50-200) 02/12/20 09:34 - Prophylaxis VTE Prophylaxis Ordered?: Yes Types of VTE Prophylaxis: TEDS Knee High Location of Applied Device: Bilateral Lower Extremeties
[2020-02-12 16:21] LABS: Troponin I < 0.01 ng/ml (0.00-0.034)
--- NOTE | 2020-02-12 18:31 | PC.NURSE ---
Pt arrived to the floor via stretcher accompanied by MARSHA Willis RN at approx 1515. Bedside report received at this time. He is alert and oriented x3. Lungs are clear but diminished. He remains on 2L NC with O2 sats running mid 90's. He is a standby assist. He has utilized a urinal at bedside. Urine is dark and clear w/approx 250 mls out since admission. Skin has scattered bruising and scarring. Abdomen has a non painful, softball size bulge when pt cough's. Appetite is poor, po fluids encouraged. Sputum specimen unable to obtained at this time, specimen cup at bedside. Bed locked and in the lowest position. Instructed assembler ping pong table light use. Pt currently resting with his eyes closed. Will continue to monitor.
--- NOTE | 2020-02-12 19:14 | PC.NURSE ---
Clarified fluid order with MARSHA Willis RN in ER. She states correct fluid order is LR @ 100mls/hr
--- NOTE | 2020-02-12 23:29 | PC.NURSE ---
2325 Vinnie from pharmacy contacted, stated it was ok to give pt home tacrolimus since we do not have it available
[2020-02-13] VITALS (9 sets, daily range): BP systolic 98–119; BP diastolic 56–75; PULSE 54–92; RESP 17–28; TEMP 36.5–37.1; O2SAT 90–96; BMI 26.2
--- NOTE | 2020-02-13 04:35 | PC.NURSE ---
pt has rested on and off t/o shift, using urinal at bedside independenkltly, remains on 3L NC with O2 sats 93-96%, no complaints of SOA or chest pain, no N/V/D this shift,
--- NOTE | 2020-02-13 05:02 | PC.NURSE ---
daughter called and stated that all of her father's antirejection medications were brought with him, she would like these to be labeled for our use here due to the expense of these medications
[2020-02-13 06:40] LABS: Lymphocytes # 0.4 K/mm3 (0.7-4.5); Monocytes # 0.2 K/mm3 (0.1-1.0)
[2020-02-13 06:46] LABS: Chloride 107 mmol/L (98-107); Potassium 4.6 mmoL/L (3.5-5.1); Sodium 134 mmol/L (136-145)
[2020-02-13 06:48] LABS: Blood Urea Nitrogen 28 mg/dl (9-20); Creatinine Clearance Estimated 57 mL/min (50-200); Estimated Glomerular Filt Rate 80 ml/min (>60); GFR (African American) 97 ML/MIN (>60)
[2020-02-13 06:49] LABS: Alanine Aminotransferase 26 U/L (12-78); Albumin Level 2.9 g/dl (3.5-5.0); Albumin/Globulin Ratio 1.1 (1.1-1.8); Alkaline Phosphatase 49 U/L (38-126); Anion Gap 10.6 mEq/L (5-15); Aspartate Amino Transferase 36 U/L (17-59); Bilirubin,Total 0.6 mg/dl (0.2-1.3); Calcium 8.2 mg/dl (8.4-10.2); Carbon Dioxide 21 mmol/L (22.0-30.0); Globulin 2.6 g/dL (1.3-3.2); Glucose 141 mg/dl (74-100); Total Protein,Serum 5.5 g/dl (6.3-8.2)
[2020-02-13 07:00] LABS: Basophils % 0.2 % (0.1-2.0); Hematocrit 40.3 % (42.0-52.0); Lymphocytes % 11.5 % (10-50); Mean Corpuscular HGB Conc 32.1 g/dL (31.8-35.4); Mean Corpuscular Hemoglobin 30.1 pg (27.0-31.2); Mean Corpuscular Volume 93.5 fl (80-94); Mean Platelet Volume 8.9 fl (7.4-10.4); Monocytes % 6.1 % (1.7-9.3); Neutrophils # 2.7 K/mm3 (1.8-7.8); Neutrophils % 82.3 % (37.0-80.0); Platelet Count 124 K/mm3 (142-424); White Blood Count 3.3 K/mm3 (4.8-10.8)
[2020-02-13 07:55] LABS: Hemoglobin 12.9 g/dL (14.1-18.0)
--- NOTE | 2020-02-13 10:46 | HMH.ACPN2 ---
Internal Medicine - PN: Subj *Date: 02/13/20 *Time: 10:46 Interval history: He looks better today than he did last night. He appeared somewhat dehydrated last night. I increase his IV fluids to 125 cc an hour not realizing that he also had 100 cc an hour of lactated Ringer's ordered. That is discontinued this morning and we will continue his sodium chloride at 125 cc an hour. He is moving air fairly well this morning. He is not coughing much at this time. He is 2 weeks past his initial symptoms so he may not be shedding replicative virus to a great degree. Exam Vital signs and Labs for Last 24 Hours: Temp Pulse Resp BP Pulse Ox 97.7 F 79 18 109/59 L 93 L 02/13/20 07:37 02/13/20 07:37 02/13/20 07:37 02/13/20 07:37 02/13/20 07:37 Laboratory Results - last 24 hr 02/12/20 09:34: Troponin I < 0.01 02/12/20 09:34: SARS-CoV-2 IgG Ab (Rapid) Negative, SARS-CoV-2 IgM Ab (Rapid) Negative 02/12/20 11:26: Chlamy pneumoniae PCR Not detected, Adenovirus (PCR) Not detected, B. pertussis DNA (PCR) Not detected, Coronavirus OC43 (PCR) Not detected, Coronavirus HKU1 (PCR) Not detected, Coronavirus 229E (PCR) Not detected, SARS-CoV-2 (PCR) Detected A, Coronavirus NL63 (PCR) Not detected, Human Metapneumovir PCR Not detected, Influenza A (H1) PCR Not detected, Influ A (H1N1/09) PCR Not detected, Influenza A (H3) PCR Not detected, Influenza Type A (PCR) Not detected, Influenza Type B (PCR) Not detected, M. pneumoniae (PCR) Not detected, Parainfluenza 1 (PCR) Not detected, Parainfluenza 2 (PCR) Not detected, Parainfluenza 3 (PCR) Not detected, Parainfluenza 4 (PCR) Not detected, RSV (PCR) Not detected, Entero/Rhino (PCR) Not detected 02/12/20 12:25: Troponin I < 0.01 02/13/20 05:25: WBC 3.3 L, RBC 4.30 L, Hgb 12.9 L D, Hct 40.3 L, MCV 93.5, MCH 30.1, MCHC 32.1, RDW 14.0, Plt Count 124 L, MPV 8.9, Neut % (Auto) 82.3 H, Lymph % (Auto) 11.5, [place] % (Auto) 6.1, Eos % (Auto) 0.0 L, Baso % (Auto) 0.2, Neut # (Auto) 2.7, Lymph # (Auto) 0.4 L, [place] # (Auto) 0.2, Eos # (Auto) 0.0, Baso # (Auto) 0.0 02/13/20 05:25: Sodium 134 L, Potassium 4.6, Chloride 107, Carbon Dioxide 21 L, Anion Gap 10.6, BUN 28 H, Creatinine 0.90, Estimated Creat Clear 57, Estimated GFR 80, Est GFR ( Amer) 97 D, Glucose 141 H D, Calcium 8.2 L, Total Bilirubin 0.6, AST 36, ALT 26, Alkaline Phosphatase 49, Total Protein 5.5 L, Albumin 2.9 L D, Globulin 2.6, Albumin/Globulin Ratio 1.1 I & O for Last 24 hours: Intake & Output 02/10/20 02/11/20 02/12/20 02/13/20 11:59 11:59 11:59 11:59 Intake Total 2328 / 2328 Output Total 750 / 750 Balance 1578 / 1578 Weight 180 lb 163 lb 2 oz Microbiology Reports for the Last 24 Hours: Microbiology 02/13/20 00:00 Sputum - Expectorated Sputum Gram Stain - Final - Constitutional no acute distress - *Routine HEENT Exam Eye: Present: PERRL ENT: Present: mucous membranes moist - *Routine Respiratory Exam Present: decreased breath sounds - *Routine Cardiovascular Exam Present: RRR - *Routine Abdominal Exam Present: soft. Absent: tenderness - *Routine Extremities Exam Absent: edema - *Routine Skin Exam Present: intact - *Routine Neurological Exam Present: alert, oriented X3 - Routine Psychiatric Exam Present: normal affect (Seems in reasonably good spirits.) Assessment and Plan (1) Atypical pneumonia Status: Acute Category: Medical Code(s): J18.9 - Pneumonia, unspecified organism (2) COVID-19 Status: Acute Category: Medical Code(s): U07.1 - COVID-19 (3) CAD (coronary artery disease) Status: Chronic Qualifiers: Coronary Disease-Associated Artery/Lesion type: [place] artery [place] vs. transplanted heart: [place] heart Associated angina: without angina Qualified Code(s): I25.10 - Atherosclerotic heart disease of [place] coronary artery without angina pectoris Category: Medical Code(s): I25.10 - Atherosclerotic heart disease of [place] coronary artery withou
--- NOTE | 2020-02-13 17:25 | PC.NURSE ---
PATIENT A&O X4, LUNGS DIMINISHED, PULSES EQUAL. PATIENT AMBULATED IN ROOM, TOLERATED WELL.. PATIENT UP TO CHAIR. PATIENT PULLED OUT IV WHILE WALKING AROUND IN ROOM. NEW IV PLACED. PATIENT HAS MOMENTS OF BECOMING ANXIOUS. NO NEW CONCERNS AT THIS TIME.
[2020-02-14] VITALS (10 sets, daily range): BP systolic 106–139; BP diastolic 42–76; PULSE 63–95; RESP 18–26; TEMP 36.4–36.9; O2SAT 91–96; BMI 26.4; BMI 26.5
--- NOTE | 2020-02-14 03:29 | PC.NURSE ---
patient has not rested up to this point this shift. patient was found on initial assessment to be confused, previous shift also reported he was pleasantly confused. patient has been impulsive coming out of room several times with something to do. repeatedly removing sat probe and oxygen. patient sats remain greater than 94% when up moving around on r/a, on rare occasion when patient is resting sats will decrease to 88%, o2 applied at 2 lnc and sats will return to greater than 94%. patient breathing pattern unlabored with or without activity, able to speak in complete sentences without becoming soa. voiding clear yellow urine.
--- NOTE | 2020-02-14 05:04 | PC.NURSE ---
patient calmer at this time and more oriented. oriented to time and president. remains disoriented to place and situation, states he doesn't feel sick.
[2020-02-14 06:25] LABS: Chloride 109 mmol/L (98-107)
[2020-02-14 06:26] LABS: Sodium 136 mmol/L (136-145)
[2020-02-14 06:28] LABS: Alanine Aminotransferase 31 U/L (12-78); Alkaline Phosphatase 55 U/L (38-126); Aspartate Amino Transferase 45 U/L (17-59); Bilirubin,Total 0.5 mg/dl (0.2-1.3); Blood Urea Nitrogen 30 mg/dl (9-20); Creatinine Clearance Estimated 57 mL/min (50-200); Estimated Glomerular Filt Rate 71 ml/min (>60); GFR (African American) 86 ML/MIN (>60)
[2020-02-14 06:29] LABS: Albumin Level 2.9 g/dl (3.5-5.0); Albumin/Globulin Ratio 1.1 (1.1-1.8); Calcium 8.2 mg/dl (8.4-10.2); Carbon Dioxide 21 mmol/L (22.0-30.0); Globulin 2.6 g/dL (1.3-3.2); Glucose 190 mg/dl (74-100); Total Protein,Serum 5.5 g/dl (6.3-8.2)
--- NOTE | 2020-02-14 12:12 | HMH.ACPN2 ---
Internal Medicine - PN: Subj *Date: 02/14/20 *Time: 12:12 Interval history: Physically and clinically he is doing well but he has been extremely confused over the past 24 hours. He has been uncertain as to where he is. I asked him if he knew me. He said I was a different Dr. Gavin from the Dr. Gavin that saw him earlier (which I did not.) His vital signs and blood chemistries are stable. He has not been febrile. I will recheck his chest x-ray. Exam Vital signs and Labs for Last 24 Hours: Temp Pulse Resp BP Pulse Ox 98.4 F 73 22 112/67 94 L 02/14/20 11:43 02/14/20 11:43 02/14/20 11:43 02/14/20 11:43 02/14/20 11:43 Laboratory Results - last 24 hr 02/14/20 04:55: Sodium 136, Potassium 4.0, Chloride 109 H, Carbon Dioxide 21 L, Anion Gap 10.0, BUN 30 H, Creatinine 1.00, Estimated Creat Clear 57, Estimated GFR 71, Est GFR ( Amer) 86, Glucose 190 H D, Calcium 8.2 L, Total Bilirubin 0.5, AST 45, ALT 31, Alkaline Phosphatase 55, Total Protein 5.5 L, Albumin 2.9 L, Globulin 2.6, Albumin/Globulin Ratio 1.1 I & O for Last 24 hours: Intake & Output 02/12/20 02/13/20 02/14/20 02/15/20 11:59 11:59 11:59 11:59 Intake Total 2328 / 2328 3194 / 3194 Output Total 750 / 750 450 / 450 Balance 1578 / 1578 2744 / 2744 Weight 180 lb 163 lb 2 oz 165 lb 5.547 oz Microbiology Reports for the Last 24 Hours: Microbiology 02/13/20 00:00 Sputum - Expectorated Sputum Gram Stain - Final 02/13/20 00:00 Sputum - Expectorated Sputum Sputum Culture - Preliminary Gram Negative Rods 02/12/20 10:30 Blood Blood Culture - Preliminary NO GROWTH AFTER 48 HOURS 02/12/20 10:30 Blood Blood Culture - Preliminary NO GROWTH AFTER 48 HOURS - Constitutional no acute distress - *Routine HEENT Exam Eye: Present: PERRL ENT: Present: mucous membranes moist - *Routine Respiratory Exam Present: CTA bilaterally. Absent: respiratory distress - *Routine Cardiovascular Exam Present: RRR - *Routine Abdominal Exam Present: soft. Absent: tenderness - *Routine Extremities Exam Absent: edema Assessment and Plan (1) Atypical pneumonia Status: Acute Category: Medical Code(s): J18.9 - Pneumonia, unspecified organism (2) COVID-19 Status: Acute Category: Medical Code(s): U07.1 - COVID-19 (3) CAD (coronary artery disease) Status: Chronic Qualifiers: Coronary Disease-Associated Artery/Lesion type: [place] artery [place] vs. transplanted heart: [place] heart Associated angina: without angina Qualified Code(s): I25.10 - Atherosclerotic heart disease of [place] coronary artery without angina pectoris Category: Medical Code(s): I25.10 - Atherosclerotic heart disease of [place] coronary artery without angina pectoris (4) History of kidney transplant Status: Chronic Category: Surgical Code(s): Z94.0 - Kidney transplant status (5) Hyperlipidemia Status: Chronic Qualifiers: Hyperlipidemia type: mixed hyperlipidemia Qualified Code(s): E78.2 - Mixed hyperlipidemia Category: Medical Code(s): E78.5 - Hyperlipidemia, unspecified (6) Hypertension Status: Chronic Qualifiers: Hypertension type: essential hypertension Qualified Code(s): I10 - Essential (primary) hypertension Category: Medical Code(s): I10 - Essential (primary) hypertension (7) Acute respiratory failure due to COVID-19 Status: Acute Category: Medical Code(s): U07.1 - COVID-19; J96.00 - Acute respiratory failure, unspecified whether with hypoxia or hypercapnia (8) Acute respiratory failure with hypoxia Status: Acute Category: Medical Code(s): J96.01 - Acute respiratory failure with hypoxia - Assessment and plan all Dx Assessment and Plan for all problems:: I believe his disorientation is due to ICU hospitalization. The dexamethasone may also be contributing. Chest x-ray is ordered
--- NOTE | 2020-02-14 12:15 | XR_ITS ---
PROCEDURE: XR CHEST PORTABLE CLINICAL HISTORY: COVID COMPARISON: CR XR CHEST 2V from 11/16/2018 CR XR CHEST PORTABLE from 11/18/2018 CR XR CHEST PORTABLE from 02/12/2020 FINDINGS: The cardiomediastinal silhouette and pulmonary vascularity are within normal limits. Right upper right lower and left lower lobe pneumonia once again noted. There is a mixed response with the infiltrate appearing somewhat worse in the right upper lobe but improved in the right lower lobe and slightly improved in the left lower lobe. No evidence of pneumothorax. No effusions. No acute bony abnormalities. IMPRESSION: Bilateral pneumonia which is slightly worse in the right upper lobe but slightly improved in the right lower and left lower lobe Dictated by: Joselito Dupont MD 02/14/2020 12:53 Joselito Dupont MD in [facility] 02/14/2020 12:53
--- NOTE | 2020-02-14 14:56 | PC.NURSE ---
Patient has been confused this shift about his location, alert to name, , month and year but cannot recall where he is. 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
[2020-02-15] VITALS (7 sets, daily range): BP systolic 120–138; BP diastolic 65–83; PULSE 64–93; RESP 19–20; TEMP 36.1–36.8; O2SAT 91–96; BMI 26.0
--- NOTE | 2020-02-15 03:19 | PC.NURSE ---
Pt has been extremely restless and pleasantly confused this shift. Pt is A&O to self and situation at times, but gets confused on place at time. Fine crackles heard at bilateral bases, and diminished breath sounds at all other bases. Pt was able to be weaned down to 2L NC with o2 sats between 92-95%. No edema noted to extremities. Active bowel sounds heard in all 4 quads. No BM noted this shift. Pt is urinating clear, light yellow urine with no odor noted. Bed alarm activated for safety. No other acute changes or complaints at this time. Will continue to monitor.
[2020-02-15 06:36] LABS: Chloride 110 mmol/L (98-107); Potassium 3.8 mmoL/L (3.5-5.1); Sodium 139 mmol/L (136-145)
[2020-02-15 06:39] LABS: Alanine Aminotransferase 32 U/L (12-78); Albumin Level 2.9 g/dl (3.5-5.0); Albumin/Globulin Ratio 1.1 (1.1-1.8); Alkaline Phosphatase 46 U/L (38-126); Anion Gap 9.8 mEq/L (5-15); Aspartate Amino Transferase 58 U/L (17-59); Bilirubin,Total 0.5 mg/dl (0.2-1.3); Blood Urea Nitrogen 29 mg/dl (9-20); Calcium 8.4 mg/dl (8.4-10.2); Carbon Dioxide 23 mmol/L (22.0-30.0); Creatinine Clearance Estimated 56 mL/min (50-200); Estimated Glomerular Filt Rate 80 ml/min (>60); GFR (African American) 97 ML/MIN (>60); Globulin 2.6 g/dL (1.3-3.2); Glucose 164 mg/dl (74-100); Total Protein,Serum 5.5 g/dl (6.3-8.2)
[2020-02-15 09:43] LABS: Hemoglobin A1C 7.1 % (4.0-6.0)
--- NOTE | 2020-02-15 12:28 | HMH.ACPN2 ---
Internal Medicine - PN: Subj *Date: 02/15/20 *Time: 12:29 Interval history: He seems to be improving. He is a little less confused today. He is certainly not in any respiratory distress and his cough seems to have decreased significantly. I have been in communication with his daughter. Exam Vital signs and Labs for Last 24 Hours: Temp Pulse Resp BP Pulse Ox 98.0 F 82 20 138/83 93 L 02/15/20 12:00 02/15/20 12:00 02/15/20 12:00 02/15/20 12:00 02/15/20 12:00 Laboratory Results - last 24 hr 02/15/20 05:45: Sodium 139, Potassium 3.8, Chloride 110 H, Carbon Dioxide 23, Anion Gap 9.8, BUN 29 H, Creatinine 0.90, Estimated Creat Clear 56, Estimated GFR 80, Est GFR ( Amer) 97, Glucose 164 H, Calcium 8.4, Total Bilirubin 0.5, AST 58 D, ALT 32, Alkaline Phosphatase 46, Total Protein 5.5 L, Albumin 2.9 L, Globulin 2.6, Albumin/Globulin Ratio 1.1 02/15/20 06:15: Hemoglobin A1c 7.1 H I & O for Last 24 hours: Intake & Output 02/13/20 02/14/20 02/15/20 02/16/20 11:59 11:59 11:59 11:59 Intake Total 2328 / 2328 3194 / 3194 1360 / 1360 Output Total 750 / 750 450 / 450 2950 / 2950 Balance 1578 / 1578 2744 / 2744 -1590 / -1590 Weight 163 lb 2 oz 165 lb 5.547 oz 162 lb 1 oz Microbiology Reports for the Last 24 Hours: Microbiology 02/13/20 00:00 Sputum - Expectorated Sputum Gram Stain - Final 02/13/20 00:00 Sputum - Expectorated Sputum Sputum Culture - Final Normal Respiratory Aneta 02/12/20 10:30 Blood Blood Culture - Preliminary NO GROWTH AFTER 48 HOURS 02/12/20 10:30 Blood Blood Culture - Preliminary NO GROWTH AFTER 48 HOURS - Constitutional no acute distress - *Routine HEENT Exam Head: Present: normocephalic Eye: Present: PERRL ENT: Present: mucous membranes moist - *Routine Respiratory Exam Present: decreased breath sounds (He does seem more decreased in the right upper lung field than other areas.) - *Routine Cardiovascular Exam Present: RRR - *Routine Abdominal Exam Present: soft. Absent: tenderness - *Routine Extremities Exam Absent: edema - *Routine Neurological Exam Present: altered mental status (Seems improved). Absent: sensory deficit, motor deficit Assessment and Plan (1) Atypical pneumonia Status: Acute Category: Medical Code(s): J18.9 - Pneumonia, unspecified organism (2) COVID-19 Status: Acute Category: Medical Code(s): U07.1 - COVID-19 (3) CAD (coronary artery disease) Status: Chronic Qualifiers: Coronary Disease-Associated Artery/Lesion type: [place] artery [place] vs. transplanted heart: [place] heart Associated angina: without angina Qualified Code(s): I25.10 - Atherosclerotic heart disease of [place] coronary artery without angina pectoris Category: Medical Code(s): I25.10 - Atherosclerotic heart disease of [place] coronary artery without angina pectoris (4) History of kidney transplant Status: Chronic Category: Surgical Code(s): Z94.0 - Kidney transplant status (5) Hyperlipidemia Status: Chronic Qualifiers: Hyperlipidemia type: mixed hyperlipidemia Qualified Code(s): E78.2 - Mixed hyperlipidemia Category: Medical Code(s): E78.5 - Hyperlipidemia, unspecified (6) Hypertension Status: Chronic Qualifiers: Hypertension type: essential hypertension Qualified Code(s): I10 - Essential (primary) hypertension Category: Medical Code(s): I10 - Essential (primary) hypertension (7) Acute respiratory failure due to COVID-19 Status: Acute Category: Medical Code(s): U07.1 - COVID-19; J96.00 - Acute respiratory failure, unspecified whether with hypoxia or hypercapnia (8) Acute respiratory failure with hypoxia Status: Acute Category: Medical Code(s): J96.01 - Acute respiratory failure with hypoxia - Assessment and plan all Dx Assessment and Plan for all problems:: Continue presen
--- NOTE | 2020-02-15 16:58 | PC.NURSE ---
Pt has been somewhat down this shift, stating he just doesn't feel good. Remains on 2 L O2 per nasal cannula w/ no s/s of resp distress. Has an occasional dry cough. Lungs CTA. Denies being SOA. Incentive spirometer bola to bedside and reviewed w/ pt. Pt will require reinforcement and encouragement. IS @ best = 1750. @ reassessment pt is confused and believes he is in a hospital in [place]. Skin intact. Abdomen soft, non-tender w/ active BS in all quads. Has had one loose stool this shift. Has had some bladder urgency incontinence this shift. Pt is very unsteady on feed and requires assistance x 1 when ambulating. He did sit up in chair for lunch, tolerating well. Daughter has called to check on pt and updated on POC. Currently sitting up in bed eating dinner. Call hailey w/in reach, has been using appropriately. Bed safety in place. No needs voiced at this time.
[2020-02-16] VITALS (9 sets, daily range): BP systolic 96–127; BP diastolic 61–74; PULSE 51–96; RESP 18–20; TEMP 36.1–36.8; O2SAT 93–95; BMI 26.0
--- NOTE | 2020-02-16 03:35 | PC.NURSE ---
Pt is alert to self and situation. Pt has slept majority of this shift. Pt was encouraged to use IS during awake hours this shift and was able to reach 1500. No cough noted this shift. Lung sounds diminished t/o. O2 sats continue to be between 91-94% per 2 L NC. Active bowel sounds in all 4 quads. No BM noted this shift. Pt was c/o bilateral shoulder pain this shift. PRN acetaminophen administered per MAR with favorable results. No other acute changes or complaints at this time. Will continue to monitor.
[2020-02-16 05:23] LABS: Chloride 106 mmol/L (98-107); Sodium 138 mmol/L (136-145)
[2020-02-16 05:24] LABS: Potassium 3.7 mmoL/L (3.5-5.1)
[2020-02-16 05:26] LABS: Alanine Aminotransferase 48 U/L (12-78); Alkaline Phosphatase 47 U/L (38-126); Anion Gap 10.7 mEq/L (5-15); Aspartate Amino Transferase 60 U/L (17-59); Bilirubin,Total 0.7 mg/dl (0.2-1.3); Blood Urea Nitrogen 31 mg/dl (9-20); Carbon Dioxide 25 mmol/L (22.0-30.0); Creatinine Clearance Estimated 56 mL/min (50-200); Estimated Glomerular Filt Rate 92 ml/min (>60); GFR (African American) 111 ML/MIN (>60)
[2020-02-16 05:27] LABS: Albumin Level 3.1 g/dl (3.5-5.0); Albumin/Globulin Ratio 1.1 (1.1-1.8); Calcium 8.2 mg/dl (8.4-10.2); Globulin 2.7 g/dL (1.3-3.2); Glucose 144 mg/dl (74-100); Total Protein,Serum 5.8 g/dl (6.3-8.2)
--- NOTE | 2020-02-16 12:13 | HMH.ACPN ---
Internal Medicine - PN: Subj *Date: 02/16/20 *Time: 12:13 Exam Vital signs and Labs for Last 24 Hours: Temp Pulse Resp BP Pulse Ox 98.2 F 96 H 20 114/65 94 L 02/16/20 11:42 02/16/20 11:42 02/16/20 11:42 02/16/20 11:42 02/16/20 11:42 Laboratory Results - last 24 hr 02/16/20 04:37: Sodium 138, Potassium 3.7, Chloride 106, Carbon Dioxide 25, Anion Gap 10.7, BUN 31 H, Creatinine 0.80, Estimated Creat Clear 56, Estimated GFR 92, Est GFR ( Amer) 111, Glucose 144 H, Calcium 8.2 L, Total Bilirubin 0.7, AST 60 H, ALT 48 D, Alkaline Phosphatase 47, Total Protein 5.8 L, Albumin 3.1 L, Globulin 2.7, Albumin/Globulin Ratio 1.1 I & O for Last 24 hours: Intake & Output 02/13/20 02/14/20 02/15/20 02/16/20 23:59 23:59 23:59 23:59 Intake Total 2793 / 2793 3050 / 3050 600 / 600 240 / 240 Output Total 500 / 600 2350 / 2350 2000 / 2250 650 / 650 Balance 2293 / 2193 700 / 700 -1400 / -1650 -410 / -410 Weight 73.992 kg 75 kg 73.51 kg 73.482 kg Microbiology Reports for the Last 24 Hours: Microbiology 02/13/20 00:00 Sputum - Expectorated Sputum Gram Stain - Final 02/13/20 00:00 Sputum - Expectorated Sputum Sputum Culture - Final Normal Respiratory Aneta Assessment and Plan (1) Atypical pneumonia Status: Acute Category: Medical Code(s): J18.9 - Pneumonia, unspecified organism (2) COVID-19 Status: Acute Category: Medical Code(s): U07.1 - COVID-19 (3) CAD (coronary artery disease) Status: Chronic Qualifiers: Coronary Disease-Associated Artery/Lesion type: [place] artery [place] vs. transplanted heart: [place] heart Associated angina: without angina Qualified Code(s): I25.10 - Atherosclerotic heart disease of [place] coronary artery without angina pectoris Category: Medical Code(s): I25.10 - Atherosclerotic heart disease of [place] coronary artery without angina pectoris (4) History of kidney transplant Status: Chronic Category: Surgical Code(s): Z94.0 - Kidney transplant status (5) Hyperlipidemia Status: Chronic Qualifiers: Hyperlipidemia type: mixed hyperlipidemia Qualified Code(s): E78.2 - Mixed hyperlipidemia Category: Medical Code(s): E78.5 - Hyperlipidemia, unspecified (6) Hypertension Status: Chronic Qualifiers: Hypertension type: essential hypertension Qualified Code(s): I10 - Essential (primary) hypertension Category: Medical Code(s): I10 - Essential (primary) hypertension (7) Acute respiratory failure due to COVID-19 Status: Acute Category: Medical Code(s): U07.1 - COVID-19; J96.00 - Acute respiratory failure, unspecified whether with hypoxia or hypercapnia (8) Acute respiratory failure with hypoxia Status: Acute Category: Medical Code(s): J96.01 - Acute respiratory failure with hypoxia The patient's infection will respond to the chosen ABx?: Yes Is the patient receiving the right drug, dose, and route?: Yes Could a more targeted ABx be ordered?: No (CONTINUE CURRENT MEDS.)
--- NOTE | 2020-02-16 13:54 | HMH.ACPN2 ---
Internal Medicine - PN: Subj *Date: 02/16/20 *Time: 13:54 Interval history: He is doing much better. He is actually comfortable on room air today. Today was his last dose of remdesivir. He still has some confusion but today knows me and knows he is in [facility]. Exam Vital signs and Labs for Last 24 Hours: Temp Pulse Resp BP Pulse Ox 98.2 F 78 20 114/65 94 L 02/16/20 11:42 02/16/20 13:19 02/16/20 11:42 02/16/20 11:42 02/16/20 11:42 Laboratory Results - last 24 hr 02/16/20 04:37: Sodium 138, Potassium 3.7, Chloride 106, Carbon Dioxide 25, Anion Gap 10.7, BUN 31 H, Creatinine 0.80, Estimated Creat Clear 56, Estimated GFR 92, Est GFR ( Amer) 111, Glucose 144 H, Calcium 8.2 L, Total Bilirubin 0.7, AST 60 H, ALT 48 D, Alkaline Phosphatase 47, Total Protein 5.8 L, Albumin 3.1 L, Globulin 2.7, Albumin/Globulin Ratio 1.1 I & O for Last 24 hours: Intake & Output 02/14/20 02/15/20 02/16/20 02/17/20 11:59 11:59 11:59 11:59 Intake Total 3194 / 3194 1360 / 1360 720 / 720 120 / 120 Output Total 450 / 450 2950 / 2950 1600 / 1600 Balance 2744 / 2744 -1590 / -1590 -880 / -880 120 / 120 Weight 165 lb 5.547 oz 162 lb 1 oz 162 lb - Constitutional no acute distress - *Routine HEENT Exam Head: Present: normocephalic Eye: Present: PERRL ENT: Present: mucous membranes moist - *Routine Respiratory Exam Present: decreased breath sounds, CTA bilaterally, rales (A few at the bases) - *Routine Abdominal Exam Present: soft. Absent: tenderness - *Routine Extremities Exam Absent: edema Assessment and Plan (1) Atypical pneumonia Status: Acute Category: Medical Code(s): J18.9 - Pneumonia, unspecified organism (2) COVID-19 Status: Acute Category: Medical Code(s): U07.1 - COVID-19 (3) CAD (coronary artery disease) Status: Chronic Qualifiers: Coronary Disease-Associated Artery/Lesion type: [place] artery [place] vs. transplanted heart: [place] heart Associated angina: without angina Qualified Code(s): I25.10 - Atherosclerotic heart disease of [place] coronary artery without angina pectoris Category: Medical Code(s): I25.10 - Atherosclerotic heart disease of [place] coronary artery without angina pectoris (4) History of kidney transplant Status: Chronic Category: Surgical Code(s): Z94.0 - Kidney transplant status (5) Hyperlipidemia Status: Chronic Qualifiers: Hyperlipidemia type: mixed hyperlipidemia Qualified Code(s): E78.2 - Mixed hyperlipidemia Category: Medical Code(s): E78.5 - Hyperlipidemia, unspecified (6) Hypertension Status: Chronic Qualifiers: Hypertension type: essential hypertension Qualified Code(s): I10 - Essential (primary) hypertension Category: Medical Code(s): I10 - Essential (primary) hypertension (7) Acute respiratory failure due to COVID-19 Status: Acute Category: Medical Code(s): U07.1 - COVID-19; J96.00 - Acute respiratory failure, unspecified whether with hypoxia or hypercapnia (8) Acute respiratory failure with hypoxia Status: Acute Category: Medical Code(s): J96.01 - Acute respiratory failure with hypoxia - Assessment and plan all Dx Assessment and Plan for all problems:: I will discharge the patient tomorrow.
--- NOTE | 2020-02-16 17:34 | PC.NURSE ---
A&O TO NAME, BIRTHDAY, AND PLACE. PT HAS TOLERATED RA WELL THROUGHOUT SHIFT. RESPIRATIONS REGULAR AND UNLABORED. LUNG SOUNDS DIMINISHED THROUGHOUT. OCCASIONAL PRODUCTIVE COUGH NOTED. 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 +2 PULSES NOTED THROUGHOUT. ACTIVE BOWEL SOUNDS HEARD IN ALL 4 QUADRANTS. SOFT AND NONTENDER ABDOMEN. PT HAS HAD SEVERAL LOOSE BMS THIS SHIFT. PT VOIDS PER URINAL AND BSC W STANDBY ASSIST. CLEAR YELLOW URINE NOTED. NO PAIN OR NAUSEA REPORTED THUS FAR. PT HAS REMAINED AFEBRILE. PT RECEIVED REMDESIVIR, AZITHROMYCIN, AND ROCEPHIN TODAY AND TOLERATED WELL. NS INFUSING AT 75ML/HR. PT WAS UP TO THE CHAIR FOR A COUPLE OF HOURS AND TOLERATED WELL. PT IS CURRENTLY LYING IN BED RESTING W CALL LIGHT WITHIN REACH. BED IN LOWEST POSITION. VSS. WILL CONTINUE TO MONITOR.
[2020-02-17] VITALS: BP 112/69; PULSE 69; RESP 18; TEMP 36.1; O2SAT 92
[2020-02-17 04:00] VITALS: BP 109/72; PULSE 72; RESP 18; TEMP 36.1; O2SAT 95
[2020-02-17 05:00] VITALS: BMI 25.9
--- NOTE | 2020-02-17 05:07 | PC.NURSE ---
Pt has rested well this shift. Pt is alert to person, place, situation but not time. Lung sounds are clear t/o. Pt continues to tolerate RA appropriately. Pt is urinating clear, yellow urine per urinal. No BM noted this shift. Active bowel sounds in all 4 quads. No other acute changes or complaints this shift. Will continue to monitor.
[2020-02-17 07:27] VITALS: BP 132/79; PULSE 84; RESP 18; TEMP 36; O2SAT 93
[2020-02-17 08:00] VITALS: O2SAT 94
--- NOTE | 2020-02-17 09:57 | HMH.ACPN2 ---
Internal Medicine - PN: Subj *Date: 02/17/20 *Time: 09:57 Interval history: Patient is able to rest comfortably on room air with good saturations. He has completed 5 days total dosing of remdesivir. He is ready for discharge to home. Dr. Gavin spoke with his daughter. In addition to his med list he has dexamethasone 6 mg at home which was prescribed but never taken. I suggested to his daughter that he take those every other day until he is seen in follow-up with telehealth. I will also continue cefdinir and recognition of the pneumonia. Exam Vital signs and Labs for Last 24 Hours: Temp Pulse Resp BP Pulse Ox 96.8 F L 84 18 132/79 94 L 02/17/20 07:27 02/17/20 07:27 02/17/20 07:27 02/17/20 07:27 02/17/20 08:00 I & O for Last 24 hours: Intake & Output 02/14/20 02/15/20 02/16/20 02/17/20 11:59 11:59 11:59 11:59 Intake Total 3194 / 3194 1360 / 1360 720 / 720 1497 / 1497 Output Total 450 / 450 2950 / 2950 1600 / 1600 950 / 950 Balance 2744 / 2744 -1590 / -1590 -880 / -880 547 / 547 Weight 165 lb 5.547 oz 162 lb 1 oz 162 lb 161 lb 9 oz - Constitutional no acute distress - *Routine HEENT Exam Head: Present: normocephalic Eye: Present: PERRL ENT: Present: mucous membranes moist - *Routine Respiratory Exam Present: CTA bilaterally (Improved air movement) - *Routine Cardiovascular Exam Present: RRR - *Routine Abdominal Exam Present: soft. Absent: tenderness - *Routine Extremities Exam Absent: edema - *Routine Neurological Exam Present: alert (Still a bit confused. Mainly as to his whereabouts.) Assessment and Plan (1) Atypical pneumonia Status: Acute Category: Medical Code(s): J18.9 - Pneumonia, unspecified organism (2) COVID-19 Status: Acute Category: Medical Code(s): U07.1 - COVID-19 (3) CAD (coronary artery disease) Status: Chronic Qualifiers: Coronary Disease-Associated Artery/Lesion type: [place] artery [place] vs. transplanted heart: [place] heart Associated angina: without angina Qualified Code(s): I25.10 - Atherosclerotic heart disease of [place] coronary artery without angina pectoris Category: Medical Code(s): I25.10 - Atherosclerotic heart disease of [place] coronary artery without angina pectoris (4) History of kidney transplant Status: Chronic Category: Surgical Code(s): Z94.0 - Kidney transplant status (5) Hyperlipidemia Status: Chronic Qualifiers: Hyperlipidemia type: mixed hyperlipidemia Qualified Code(s): E78.2 - Mixed hyperlipidemia Category: Medical Code(s): E78.5 - Hyperlipidemia, unspecified (6) Hypertension Status: Chronic Qualifiers: Hypertension type: essential hypertension Qualified Code(s): I10 - Essential (primary) hypertension Category: Medical Code(s): I10 - Essential (primary) hypertension (7) Acute respiratory failure due to COVID-19 Status: Acute Category: Medical Code(s): U07.1 - COVID-19; J96.00 - Acute respiratory failure, unspecified whether with hypoxia or hypercapnia (8) Acute respiratory failure with hypoxia Status: Acute Category: Medical Code(s): J96.01 - Acute respiratory failure with hypoxia - Assessment and plan all Dx Assessment and Plan for all problems:: Discharge to home. Follow-up by telehealth at the end of the week.
--- NOTE | 2020-02-17 10:46 | PC.NURSE ---
Pt family requesting that all new meds, except for brilinta be sent to [facility] in [place]. Contacted Ed in pharmacy to make these changes.
--- NOTE | 2020-02-17 13:04 | HMH.DCSUM ---
General - General Admission date:: 02/12/20 Discharge date: 02/17/20 HPI HPI: Did on the elevator Mr. 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 Patient stated he was extremely short of breath. His daughter stated his O2 sats dropped to 86 and she brought him to the emergency room. He denied having chest pain. He did have a nonproductive cough. He was short of breath. He was not eating as well. He denies fever and other respiratory symptoms. He reported no vomiting and no diarrhea. The following was from documentation in the emergency room: 84-year-old male brought in by EMS for further evaluation of shortness of air. Patient hemodynamically stable and nontoxic in appearance upon arrival. Patient maintaining oxygen saturations of approximately 95% on arrival after being on 2 L throughout transport. Differential diagnosis includes but not limited to worsening COVID-19, pneumonia, pneumothorax, myocardial infarction, PE, renal failure of transplanted kidney. Labs obtained including CBC, CMP, lactate, LDH, VBG, troponin profile. EKG obtained and was personally reviewed significant for no acute ST elevation, ST depression, or T wave abnormalities concerning for ACS at this time. Chest x-ray personally reviewed and significant for bilateral patchy opacifications concerning for COVID-19 pneumonia versus atypical pneumonia. Labs significant for neutropenia of 4.4. Started patient on ceftriaxone and azithromycin for community-acquired pneumonia. Patient's oxygen saturation dropped below 90% on room air in emergency department, so patient was started on 2 L nasal cannula. Admitted patient to internal medicine due to new oxygen requirement secondary to COVID-19 and pneumonia. HPI narrative: 84-year-old male brought in by EMS for further evaluation in the emergency department of shortness of air. Per report from EMS/family patient tested positive for COVID-19 on 01/23. Over the past several days patient started having worsening difficulty breathing. Per report from daughter patient's oxygen saturation was below 90% at home today on room air so she called EMS. EMS started patient on 2 L nasal cannula with improvement of oxygen saturation to 98%. Patient reports mildly increased difficulty breathing at this time. Patient stated that he had an intermittent cough with yellowish sputum. Denied any fevers in over 1 week. Denied any chest pain. Denied any abdominal pain. Denied any other symptoms. The above is from documentation in the ER. With evaluation in the emergency room temp was 98.7. ABG showed a pH of 7.35, PCO2 of 37.4, PO2 of 33.7 from a venous sample. White blood cell count was 4400. Electrolytes with a slightly low sodium at 134 and otherwise was normal. BUN 26 creatinine 1.10. LDH was 219 and liver function studies were otherwise normal. Patient was started on Zithromax and will be started also on Rocephin IV. Chest x-ray revealed bilateral lower lobe pneumonia. Thus patient was admitted to the Covid unit with routine Covid orders. At the time of exam patient did not feel well. His O2 stats were stable. Hospital Course Hospital Course: On admission patient was started on Rocephin and Zithromax as well as duo nebs and the routine Covid orders to include dexamethasone and remdesivir. He was started also on DVT prophylaxis with Lovenox. He had IV fluids ordered and was felt to be dry and so these were increased. Chest x-ray did show bilateral pneumonia. He was also started on his routine home meds to
== END 2020-02-17 11:40 | disposition home or self-care (01) | DRG 177 ==
LOC: ER 11:16 → ICU 16:58
PROVIDERS: Admitting Provider Family Medicine; Emergency Provider Emergency Medicine; PCP Family Medicine; Visit Provider Family Medicine
DX: U07.1 COVID-19 (principal); J12.89 Other viral pneumonia; J96.01 Acute respiratory failure with hypoxia; Z94.0 Kidney transplant status; I25.10 Atherosclerotic heart disease of native coronary artery without angina pectoris; E78.5 Hyperlipidemia, unspecified; I10 Essential (primary) hypertension; I25.2 Old myocardial infarction; Z79.899 Other long term (current) drug therapy; Z88.5 Allergy status to narcotic agent; Z88.2 Allergy status to sulfonamides; Z79.82 Long term (current) use of aspirin
CPT/HCPCS: 36415; 71045; 80053; 82803; 83036; 83605; 83615; 84484; 85025; 86328; 87040; 87070; 87077; 87186; 87205; 87581; 87633; 87798; 93005; 94640; 94761; 96365; 96375; 99285; J0456; J2405

== ENCOUNTER → 2020-05-20 14:24 | Outpatient (CLI) | payer MEDICARE, BC, SELFPAY | PROVIDERS: PCP Family Medicine; Visit Provider Internal Medicine | DX: E78.5 Hyperlipidemia, unspecified (principal); G47.33 Obstructive sleep apnea (adult) (pediatric); I10 Essential (primary) hypertension; I25.10 Atherosclerotic heart disease of native coronary artery without angina pectoris; R06.00 Dyspnea, unspecified; R53.83 Other fatigue; Z94.0 Kidney transplant status | CPT/HCPCS: 93270 ==

== ENCOUNTER → 2020-05-26 07:48 | Outpatient (CLI) | payer MEDICARE, BC, SELFPAY ==
--- NOTE | 2020-05-26 07:48 | CA_ITS ---
APPROVED REPORT EXAM: Comprehensive 2D, Doppler, and color-flow Echocardiogram Shift Superintendent: Jane Singh, RT(R) Ht: 5 ft 6 in Wt: 175lbs BSA: 1.89 BP: 132/65 mmHg Indications: ex smoker, fatigue, edema, SOB, hyperlipidemia, COVID 12/20, CAD, DD, hx kidney transplant, hx VA 2D Dimensions LVOT 2.00 cm (M/F) 1.5-2.5 M-Mode Dimensions RVDd 2.18 cm (0.9-2.6) LA Diam 3.16 cm (1.9-4.0) LVDd 4.32 cm (3.5-5.7) Ao Diam 2.56 cm (2.0-3.7) LVDs 3.01 cm (3.5-5.7) IVSd 0.90 cm (0.6-1.1) PWd 0.84 cm (0.6-1.1) EF (Teich) 58.00% FS 30.30% EDV (Teich) 84.00 mL ESV (Teich) 35.30 mL LV Diastology E Decel Time 223.00 (160-240 msec) E/A Ratio 0.8 MED E' 6.00 (< 7 cm/sec) E'/MED E' Ratio 13.52 (>14) LAT E' 8.30 (<10 cm/sec) E/LAT E' Ratio 9.77 (>14) Mitral Valve MV E Max Alejandro. 81.00 (40-130 cm/s) MV A Velocity 99.00 (40-130 cm/s) E/A Ratio 0.82 MV Decel. Time 223.00 (160-240 ms) MV PHT 65.00 ms Tricuspid Valve TR P. Velocity 231.00 cm/s RAP Estimate 10.00 mmHg RVSP 31.40 mmHg Left Ventricle Left atrium is mildly enlarged, left ventricle is normal size, mild concentric left ventricular hypertrophy, visually estimated ejection fraction 55% with no regional wall motion abnormality, grade 1 diastolic dysfunction seen without tissue Doppler evidence of raise left atrial pressure. Right Ventricle Right atrium and right ventricle is normal size and contractility. Aortic Valve Aortic valve is thickened and calcified without Doppler evidence of aortic stenosis or aortic insufficiency. Mitral Valve Mitral valve leaflets are minimally thickened, there is trace mitral regurgitation. Tricuspid Valve Tricuspid grossly normal, there is trace tricuspid regurgitation. Pulmonic Valve Pulmonic valve is poorly visualized. Great Vessels Aortic root is normal size. Pericardium No significant pericardial effusion noted. Conclusion 1. Mildly enlarged left atrium, normal left ventricular size, mild concentric left ventricular hypertrophy, visually estimated ejection fraction 55% with no regional wall motion abnormality, grade 1 diastolic dysfunction seen without tissue Doppler evidence of raise left atrial pressure. 2. Thickened and calcified aortic valve without aortic stenosis or aortic insufficiency. 3. Trace mitral and tricuspid regurgitation. 4. No significant pericardial effusion noted. Electronically signed by : David Miller, 05/26/2020 20:24:52
--- NOTE | 2020-05-26 07:48 | CA_ITS ---
APPROVED REPORT Director Software Development: MARIA EUGENIA Laterality: Bilateral Indications: dizziness, edema, hyperlipidemia, ex smoker, fatigue, CAD Doppler Spectral Velocity Analysis ECA (R) 105.90/10.60 cm/s ECA (L) 87.40/9.40 cm/s dICA (R) 103.10/27.90 cm/s dICA (L) 68.40/8.00 cm/s Ashley (R) 62.90/18.60 cm/s Ashley (L) 83.10/24.80 cm/s pICA (R) 56.50/12.80 cm/s pICA (L) 39.60/10.20 cm/s dCCA (R) 73.70/14.60 cm/s dCCA (L) 93.40/24.00 cm/s pCCA (R) 92.50/13.70 cm/s pCCA (L) 84.80/17.10 cm/s Vert (R) 37.60/12.90 cm/s Vert (L) 40.30/16.30 cm/s ICA/CCA 1.40 ICA/CCA 0.89 Findings Duplex evaluation demonstrates stenosis of the right proximal internal carotid artery <20% with PSV <140 cm/sec, EDV <100 cm/sec, and IC/CC Ratio <4.0. Duplex evaluation demonstrates stenosis of the left proximal internal carotid artery in the range of 20-49% with PSV <140 cm/sec, EDV <100 cm/sec, and IC/CC Ratio <4.0. Conclusion Duplex evaluation demonstrates stenosis of the right proximal internal carotid artery <20% with PSV <140 cm/sec, EDV <100 cm/sec, and IC/CC Ratio <4.0. Duplex evaluation demonstrates stenosis of the left proximal internal carotid artery in the range of 20-49% with PSV <140 cm/sec, EDV <100 cm/sec, and IC/CC Ratio <4.0. Electronically signed by : Joselito Dupont MD 05/26/2020 19:18:22
== END ==
PROVIDERS: PCP Family Medicine; Visit Provider Urology
DX: E78.5 Hyperlipidemia, unspecified (principal); G47.33 Obstructive sleep apnea (adult) (pediatric); I10 Essential (primary) hypertension; I25.10 Atherosclerotic heart disease of native coronary artery without angina pectoris; R42 Dizziness and giddiness; R53.83 Other fatigue; Z94.0 Kidney transplant status
CPT/HCPCS: 93306; 93880

== ENCOUNTER → 2020-07-25 07:08 | Outpatient (CLI) | payer MEDICARE, BC, SELFPAY ==
[2020-07-25 07:19] LABS: Microscopic, Urine URINE MICROSCOPIC (MICROSCOPIC)
[2020-07-25 07:46] LABS: Basophils # 0.1 K/mm3 (0-0.2); Basophils % 1.2 % (0.1-2.0); Eosinophils # 0.2 K/mm3 (0.0-0.4); Eosinophils % 4.1 % (0.1-12.0); Hemoglobin 13.2 g/dL (14.1-18.0); Lymphocytes # 0.9 K/mm3 (0.7-4.5); Lymphocytes % 19.5 % (10-50); Mean Corpuscular HGB Conc 32.2 g/dL (31.8-35.4); Mean Corpuscular Hemoglobin 28.7 pg (27.0-31.2); Mean Corpuscular Volume 88.9 fl (80-94); Monocytes # 0.5 K/mm3 (0.1-1.0); Monocytes % 11.6 % (1.7-9.3); Neutrophils # 2.8 K/mm3 (1.8-7.8); Neutrophils % 63.6 % (37.0-80.0); Platelet Count 144 K/mm3 (142-424); Red Blood Count 4.62 M/mm3 (4.60-6.20); Red Cell Distribution Width 13.3 % (11.5-17.5); White Blood Count 4.4 K/mm3 (4.8-10.8)
[2020-07-25 07:50] LABS: Appearance,Urine CLEAR (Clear); Bilirubin,Urine Negative (Negative); Blood, Urine Negative (Negative); Color,Urine YELLOW (Yellow); Glucose,Urine (UA) Negative (Negative); Ketones,Urine Negative (Negative); Leukocyte Esterase,Urine Negative (Negative); Nitrate,Urine Negative (Negative); Protein,Urine Negative (Negative); Specific Gravity, Urine 1.015 (1.005-1.030); Urobilinogen,Urine 0.2 EU/dl (0.2)
[2020-07-25 08:54] LABS: Albumin Level 3.8 g/dl (3.5-5.0); Anion Gap 9.5 mEq/L (5-15); Blood Urea Nitrogen 21 mg/dl (9-20); Calcium 8.8 mg/dl (8.4-10.2); Carbon Dioxide 26 mmol/L (22.0-30.0); Chloride 105 mmol/L (98-107); Estimated Glomerular Filt Rate 58 ml/min (>60); GFR (African American) 70 ML/MIN (>60); Glucose 119 mg/dl (74-100); Magnesium 1.6 mg/dl (1.6-2.3); Potassium 4.5 mmoL/L (3.5-5.1); Sodium 136 mmol/L (136-145)
[2020-07-28 04:15] LABS: Tacrolimus (FK506), Blood 2.9 ng/mL (2.0-20.0)
== END ==
PROVIDERS: Visit Provider Internal Medicine Nephrology
DX: N18.9 Chronic kidney disease, unspecified (principal); Z79.899 Other long term (current) drug therapy; Z94.0 Kidney transplant status
CPT/HCPCS: 36415; 80069; 80197; 81001; 83735; 85025

== ENCOUNTER → 2020-09-07 11:44 | Outpatient (CLI) | payer MEDICARE, BC, SELFPAY ==
--- NOTE | 2020-09-07 11:44 | NM_ITS ---
APPROVED REPORT Exam: Nuclear Stress Test Indication: SOB, CAD, HTN, High cholesterol, Former tobacco use, Family history, Fatigue Patient Location: Outpatient Stress Tech: Angeline Verduzco MI Tech:Meena Reddy, ARRT, RT (R)(N) Ht: 5 ft 6 in Wt: 165 lbs HR: 66 bpm BP: 118/62 mmHg BSA: 1.84 m2 BMI: 26.6 History: SOB, CAD, HTN, High cholesterol, Former tobacco use, Family history, Fatigue Procedure: Patient received a 0.4 mg of intravenous Lexiscan, resting heart rate 66 bpm, resting blood pressure 118/62 mmHg, with Lexiscan maximum heart rate achived was 100 bpm which is % of the maximum predicted heart rate and blood pressure was 112/62 mmHg. With Lexiscan, patient denied any complaint of chest pain. Cardiac Stress and Resting SPECT Images: Cardiac Stress and Resting SPECT images were obtained using technetium 99m Myoview 31.6 mCi stress and 10.00 mCi at rest. Ejection fraction: 66% Normal wall motion. Small fixed defect anterior apical septal region. No reversible defects. Conclusion: Ejection fraction: 66% Normal wall motion. Small fixed defect anterior apical septal region. No reversible defects. Suspect small infarct in the apex. Electronically signed by : Joselito Dupont MD 09/11/2020 13:52:04
--- NOTE | 2020-09-07 13:22 | HMH.ITSHM ---
Current Home Medications as stated by this patient Berhane James or group sales representative. []NITRO METOPROLOL MAGNESIUM GABAPENTIN FUROSEMIDE CALCITRIOL ASA ZINC TACROLIMUS PROSCAR VITAMIN D2 DOXAZOSIN VITAMIN B12 CITALOPRAM PROLENSA VITAMIN C
--- NOTE | 2020-09-07 14:18 | CA_ITS ---
APPROVED REPORT Exam: Pharmacologic Technologist: Angeline Verduzco, Ht: 4 ft 8 in Wt: 168 lbs BSA: 1.65 m2 HR: 66 bpm BP: 118/62 mmHg Medical History Medications: Aspirin,,,,, Gabapentin,,,,, Vitamin C,,,,, Vitamin B12,,,,, Citalopram,,,,, Lasix,,,,, Acetaminophen,,,,, Magnesium,,,,, DOxazosin,,,,, Finasteride,,,,, Vitamin D2,,,,, Nitroglycerin,,,,, Stress Test Details Test: LEXISCAN HR Resting HR: 69 bpm Max Heart Rate (APMHR): 135.107247 bpm Max HR Achieved: 100 bpm Target HR (85% APMHR): 114.074234 bpm % of APMHR: 74.07 Recovery HR: 91 bpm BP Resting BP: 118/62 mmHg Max BP: 132/62 mmHg Recovery BP: 118.0/56.0 mmHg ECG Resting ECG: NSR, normal Clinical Exercise duration: 04:00 min Highest Stage Achieved: Exercise capacity: 1.0 METs Stress ECG Conclusion Symptoms: SOA, nausea, lightheaded, malaise. No CP Arrhythmias/Ectopy: None ST-T Changes: No significant changes Conclusion: Unremarkable Lexiscan stress. [employer] images reported separately Electronically signed by : King Staples, 09/10/2020 09:27:13
== END ==
PROVIDERS: PCP Family Medicine; Visit Provider Urology
DX: E78.2 Mixed hyperlipidemia (principal); G47.33 Obstructive sleep apnea (adult) (pediatric); I10 Essential (primary) hypertension; I25.10 Atherosclerotic heart disease of native coronary artery without angina pectoris; M79.602 Pain in left arm; R06.00 Dyspnea, unspecified; R42 Dizziness and giddiness; R53.83 Other fatigue; R60.0 Localized edema; Z87.891 Personal history of nicotine dependence; Z94.0 Kidney transplant status
CPT/HCPCS: 78452; 93017; A9502; J2785

== ENCOUNTER → 2020-09-28 08:51 | Outpatient (CLI) | payer MEDICARE, BC, SELFPAY ==
[2020-09-28 09:26] LABS: Basophils % 0.8 % (0.1-2.0); Eosinophils # 0.1 K/mm3 (0.0-0.4); Eosinophils % 3.5 % (0.1-12.0); Hematocrit 37.2 % (42.0-52.0); Hemoglobin 11.7 g/dL (14.1-18.0); Lymphocytes # 0.6 K/mm3 (0.7-4.5); Lymphocytes % 17.7 % (10-50); Mean Corpuscular HGB Conc 31.4 g/dL (31.8-35.4); Mean Corpuscular Hemoglobin 27.9 pg (27.0-31.2); Mean Corpuscular Volume 88.8 fl (80-94); Mean Platelet Volume 8.1 fl (7.4-10.4); Monocytes # 0.3 K/mm3 (0.1-1.0); Monocytes % 10.2 % (1.7-9.3); Neutrophils # 2.2 K/mm3 (1.8-7.8); Neutrophils % 67.8 % (37.0-80.0); Platelet Count 146 K/mm3 (142-424); Red Blood Count 4.19 M/mm3 (4.60-6.20); White Blood Count 3.2 K/mm3 (4.8-10.8)
[2020-09-28 09:53] LABS: Anion Gap 10.1 mEq/L (5-15); Blood Urea Nitrogen 15 mg/dl (9-20); Calcium 8.5 mg/dl (8.4-10.2); Carbon Dioxide 26 mmol/L (22.0-30.0); Chloride 104 mmol/L (98-107); Estimated Glomerular Filt Rate 64 ml/min (>60); GFR (African American) 77 ML/MIN (>60); Glucose 123 mg/dl (74-100); Potassium 4.1 mmoL/L (3.5-5.1); Sodium 136 mmol/L (136-145)
== END ==
PROVIDERS: Visit Provider Urology
DX: E78.5 Hyperlipidemia, unspecified (principal); G47.33 Obstructive sleep apnea (adult) (pediatric); I10 Essential (primary) hypertension; I25.10 Atherosclerotic heart disease of native coronary artery without angina pectoris; M79.602 Pain in left arm; R06.00 Dyspnea, unspecified; R42 Dizziness and giddiness; R53.83 Other fatigue; R60.0 Localized edema; Z87.891 Personal history of nicotine dependence; Z94.0 Kidney transplant status; Z01.812 Encounter for preprocedural laboratory examination; Z20.822 Contact with and (suspected) exposure to COVID-19
CPT/HCPCS: 36415; 80048; 85025; U0003

== ENCOUNTER 2020-09-29 07:57 | Day surgery (SDC) | payer MEDICARE, BC, SELFPAY ==
[2020-09-29] VITALS (13 sets, daily range): BP systolic 109–138; BP diastolic 49–82; PULSE 64–92; RESP 16–18; TEMP 36.6; O2SAT 93–98; BMI 27.1
--- NOTE | 2020-09-29 | IR_ITS ---
APPROVED REPORT Patient Location: Outpatient Speech Assistant: JESUS Fajardo RT (R) PROCEDURES Left heart catheterization Left ventriculogram Selective coronary angiogram FFR to the LAD Drug-eluting stent deployment to the proximal and mid LAD in a contiguous manner Drug-eluting stent deployment to the proximal circumflex artery Drug-eluting stent deployment to the proximal mid and distal dominant right coronary in a contiguous manner INDICATION Coronary artery disease, Angina pectoris, High risk abnormal Myoview, Ischemic response to adenosine with an FFR index of 0.80 in the LAD Informed consent was obtained prior to the procedure. COMPLICATIONS None Estimated Blood Loss: Less than 10 mls TECHNIQUE One percent lidocaine used to anesthetize the right anterior aspect of the wrist. The right radial artery was accessed via the Seldinger technique. A 6 Kyrgyz sheath was placed in the right radial artery. 2.5 mg of verapamil, 800 mcg of nitroglycerin, 1mg Lidocaine and 5000 U Heparin were given through the arterial sheath. The trap catheter was also used to perform left heart catheterization, left ventriculogram and selective coronary angiogram. At the end the diagnostic angiogram therapeutic heparin was administered giving an ACT out of range. The sheath was exchanged for a 6 K[place] Poppa catheter. The guide catheter was used to intubate the left main artery and a Choice PT extra-support wire was placed in the LAD. A nevus FFR index was equalized and then placed down into the LAD. Adenosine was infused and the FFR index dropped to 0.80. At this point a 3.5 x 22 mm resolute Benjy stent was deployed at 20 wilbert reducing the hemodynamically severe stenosis to 0%. DEDRICK-3 flow was present before and after the procedure. At the end of procedure the wire was placed back into the circumflex artery. I felt the angiographic stenosis was severe enough where this did not warrant FFR. The circumflex artery had a long stenosis with a 70% focal stenosis. Because of this a 2.75 x 38 mm resolute Benjy stent was deployed at 24 wilbert reducing the severe stenosis to 0%. DEDRICK-3 flow was present before and after the procedure. Following this the wire was removed and the guide catheter was placed in the right coronary artery with the same wire placed distally in the right coronary. A 3 mm x 38 mm resolute Benjy stent was deployed at 24 wilbert in the distal right coronary arteries reducing the severe stenosis to 0%. An additional 3.5 x 38 mm resolute Benjy stent was then placed proximal to the stent yet still overlapping the stent deployed at 20 wilbert reducing the stenosis to 0%. DEDRICK-3 flow was present before and after the procedure. At the end of the procedure the apparatus was removed the sheath was removed and hemostasis was achieved using TR banding patient was transferred to the postop holding area stable condition ANGIOGRAPHIC RESULTS The left main artery Normal The left anterior descending artery Has a proximal 40 to 70% stenosis by angiographic criteria with the stenosis producing an FFR index of 0.80 The circumflex artery Is a nondominant vessel and has a long proximal 50% with a focal concentric 70% stenosis The right coronary artery Is a large dominant vessel and has a proximal 60 to 70% concentric stenosis followed by mid vessel 50 to 60% stenosis followed by distal 70 to 80% stenosis The CEBALLOS ventriculogram reveals Normal 65% The left ventricular end-diastolic pressure 10 mmHg IMPRESSION Severe three-vessel coronary disease as described above Successful stenting the proximal LAD hemodynamically severe disease reduced to 0% with 1 drug-eluting stent Successful stenting of the proximal circumflex arter
--- NOTE | 2020-09-29 08:08 | US_ITS ---
PROCEDURE: US GALLBLADDER CLINICAL INDICATION: abdominal pain COMPARISON: CT CT ABDOMEN PELVIS WO CON from 11/16/[address] ABDOMEN WO CON from 09/29/2020 FINDINGS: Pancreas: Pancreas is not well delineated due to overlying bowel gas. CT or MRI without and with contrast with pancreatic protocol may provide further evaluation if clinically desired. Liver: Unremarkable. There is appropriate direction of blood flow within a non dilated portal vein. Right kidney: There is severe atrophy of the right kidney which was not imaged by ultrasound. The pelvic right renal allograft was imaged and has an unremarkable appearance. No hydronephrosis evident. Gallbladder: Mild gallbladder distension measuring 9 by 3.6 cm. No gallbladder wall thickening. There is a small amount fluid along the inferior liver surface. Common bile duct is normal at 4 mm. No gallstones are apparent. No pericholecystic fluid. IMPRESSION: 1. Mild gallbladder distention without evidence of stones, wall thickening, or pericholecystic fluid. Common bile duct is normal at 4 mm. 2. 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 Dictated by: Joselito Dupont MD 09/29/2020 13:55 Joselito Dupont MD in [place] 09/29/2020 13:55
--- NOTE | 2020-09-29 08:08 | CT_ITS ---
PROCEDURE: CT ABDOMEN WO CON CLINICAL HISTORY: abnormal myoview Mid abdominal pain COMPARISON: CT CT ABDOMEN PELVIS WO CON from 11/16/2018 TECHNIQUE: Axial images obtained with sagittal and coronal reformats. All CT scans at the facility use one or more dose reduction, viz: automated exposure control, ma/kV adjustment per patient size (including targeted exams where dose is matched to indication, i.e. head), or iterative reconstruction technique. FINDINGS: There are chronic changes in the lung bases. Coronary artery calcifications are noted. There is a small soft tissue density anterior to the aortic root and may represent a epicardial lymph node at 15 mm. There is minimal thickening of the pericardium The liver has an unremarkable unenhanced appearance. The spleen is enlarged at 10 x 15 cm. Gallbladder is slightly distended. No gallstones are identified. Unremarkable appearing adrenal glands. There is severe atrophic changes of both kidneys. A 4 mm stone is present in the upper pole of the left kidney and a 4 mm stone is present in the lower pole of the left kidney. No hydronephrosis. Unremarkable appearing pancreas. Duodenal diverticulum projects medially along the descending portion of the duodenum. The bowel gas pattern is nonspecific with numerous fluid-filled loops of small bowel which are nondistended. No free air is evident. Ileus or enteritis is a consideration. There is diffuse colonic diverticulosis. No evidence of diverticulitis. Mildly prominent mesenteric lymph nodes are present which have developed since the previous exam. These nodes measure up to 1.5 cm. There is a small amount fluid within the right pericolic gutter There is a right pelvic renal allograft. A stone is present within this kidney in the upper pole. The stone measures 4-5 mm. No hydronephrosis. The right renal allograft is incompletely imaged inferiorly. There is severe degenerative change of the lumbar spine with kyphosis and endplate hypertrophic change. IMPRESSION: 1. Splenomegaly. 2. Severe bilateral renal atrophy with right pelvic renal allograft. Nonobstructing stone is present within the renal transplant without hydronephrosis. 3. Nondistended fluid-filled loops of small bowel throughout raising the suspicion of enteritis or ileus 4. Diffuse colonic diverticulosis without diverticulitis. 5. Mild mesenteric adenopathy nonspecific and may be reactive or neoplastic. Follow-up suggested to confirm stability or resolution. 6. Small amount of nonspecific fluid in the right pericolic gutter Dictated by: Joselito Dupont MD 09/29/2020 11:52 Joselito Dupont MD in [place] 09/29/2020 11:52
[2020-09-29 14:45] LABS: CATHL Activated Clotting Time > 400 SEC (74-125)
--- NOTE | 2020-09-29 15:09 | HMH.PHACLD ---
Berhane James has received discharge medication counseling on the following medications: -ASA 81 MG -ATORVASTATIN -BRILINTA - SWITCHED TO PLAVIX AFTER COUNSELING OCCURRED DUE TO PT NOT QUALIFYING FOR BRILINTA CARD DUE TO PREVIOUS USE. -METOPROLOL SUCCINATE - DOSE INCREASED TO 50 MG
== END 2020-09-29 16:00 | disposition home or self-care (01) ==
LOC: CATHLAB 08:00
PROVIDERS: PCP Family Medicine; Visit Provider Internal Medicine
DX: I25.119 Atherosclerotic heart disease of native coronary artery with unspecified angina pectoris (principal); G47.33 Obstructive sleep apnea (adult) (pediatric); I10 Essential (primary) hypertension; M79.602 Pain in left arm; R06.00 Dyspnea, unspecified; R53.83 Other fatigue; R60.0 Localized edema; R94.30 Abnormal result of cardiovascular function study, unspecified; Z87.891 Personal history of nicotine dependence; Z94.0 Kidney transplant status; E78.2 Mixed hyperlipidemia; R10.84 Generalized abdominal pain
CPT/HCPCS: 74150; 76705; 85347; 92928; 93458; 93571; 99152; 99153; C1725; C1769; C1876; C9600; J0153; J1644; J2405; Q9967

== ENCOUNTER → 2020-09-30 11:23 | Outpatient (CLI) | payer MEDICARE, BC, SELFPAY ==
[2020-09-30 11:50] LABS: Basophils % 0.3 % (0.1-2.0); Eosinophils # 0.1 K/mm3 (0.0-0.4); Eosinophils % 1.1 % (0.1-12.0); Hematocrit 36.7 % (42.0-52.0); Lymphocytes # 0.9 K/mm3 (0.7-4.5); Lymphocytes % 13.2 % (10-50); Mean Corpuscular HGB Conc 32.6 g/dL (31.8-35.4); Mean Corpuscular Hemoglobin 28.3 pg (27.0-31.2); Mean Corpuscular Volume 86.9 fl (80-94); Mean Platelet Volume 8.5 fl (7.4-10.4); Monocytes # 0.3 K/mm3 (0.1-1.0); Monocytes % 4.6 % (1.7-9.3); Neutrophils # 5.7 K/mm3 (1.8-7.8); Neutrophils % 80.8 % (37.0-80.0); Platelet Count 171 K/mm3 (142-424); Red Blood Count 4.23 M/mm3 (4.60-6.20); Red Cell Distribution Width 14.6 % (11.5-17.5); White Blood Count 7.1 K/mm3 (4.8-10.8)
== END ==
PROVIDERS: Visit Provider Family Medicine
DX: R16.1 Splenomegaly, not elsewhere classified (principal); R53.83 Other fatigue
CPT/HCPCS: 36415; 85025

== ENCOUNTER 2020-10-06 10:28 | Emergency (ER) | payer MEDICARE, BC, SELFPAY ==
[2020-10-06 10:29] VITALS: BP 107/61; PULSE 81; RESP 16; TEMP 36.7; O2SAT 96; BMI 25.8
[2020-10-06 10:47] LABS: Microscopic, Urine URINE MICROSCOPIC (MICROSCOPIC)
--- NOTE | 2020-10-06 10:48 | HMH.EDGENADL ---
ED Disposition Clinical Impression: Hematuria Qualifiers: Hematuria type: unspecified type Qualified Code(s): R31.9 - Hematuria, unspecified Disposition: Home, Self-Care Condition on Discharge: Good Instructions: Blood in Urine Additional Instructions: [facility] transplant team will call you to set up an appointment on . Take medications as directed. Return to emergency department for fever, worsening hematuria, cough, chest pain. Referrals: Neo Gavin MD [Primary Care Provider] - 3 days Time of Disposition: 11:44 - Critical Care Critical Care Time: No Attestation: On , the high probability of a clinically significant, sudden or life threatening deterioration of the following system(s) required my full and direct attention, intervention and personal management. The time I documented below is in addition to time spent performing reported procedures but includes the following listed in this critical care notation. Medical Decision Making - Medical Records Medical records reviewed: Yes: I reviewed the patient's medical records. - Ashu Inquiry Pt receiving controlled substance: No Vital Signs: 10/06/20 10:29 Temperature 98.1 F Temperature Source Oral Pulse Rate [Right] 81 Respiratory Rate 16 Blood Pressure [Right Arm] 107/61 L Blood Pressure Mean [Right Arm] 76 02 Sat by Pulse Oximetry 96 Oxygen Delivery Method Room Air - Lab Data Lab results reviewed: Yes: I reviewed the patient's lab results. Lab Results 10/06/20 10:44: Urine Color Red, Urine Appearance Turbid, Urine pH 5.5, Ur Specific Vandiver >= 1.030, Urine Protein 1+, Urine Glucose (UA) Negative, Urine Ketones Negative, Urine Blood 3+, Urine Nitrate Negative, Urine Bilirubin Negative, Urine Urobilinogen 0.2, Ur Leukocyte Esterase Negative, Urine RBC 5-10, Urine WBC 3-5, Ur Squamous Epith Cells 3-5, Urine Bacteria None 10/06/20 11:08: WBC 4.2 L, RBC 3.98 L, Hgb 11.3 L, Hct 34.4 L, MCV 86.6, MCH 28.3, MCHC 32.7, RDW 14.9, Plt Count 133 L, MPV 8.7, Neut % (Auto) 72.0, Lymph % (Auto) 16.5, [place] % (Auto) 9.5 H, Eos % (Auto) 1.5, Baso % (Auto) 0.5, Neut # (Auto) 3.0, Lymph # (Auto) 0.7, [place] # (Auto) 0.4, Eos # (Auto) 0.1, Baso # (Auto) 0.0 10/06/20 11:08: Sodium 132 L, Potassium 4.2, Chloride 101, Carbon Dioxide 24, Anion Gap 11.2, BUN 19, Creatinine 1.30 H, Estimated Creat Clear 43, Estimated GFR 52 L, Est GFR ( Amer) 63, Glucose 138 H, Calcium 8.2 L, Total Bilirubin 0.7, AST 64 H, ALT 70, Alkaline Phosphatase 118, Total Protein 5.6 L, Albumin 3.0 L, Globulin 2.6, Albumin/Globulin Ratio 1.2 Result diagrams: 10/06/20 11:08 10/06/20 11:08 Medical Decision Narrative: 84yo M evaluated for fatigue, hematuria. Patient is in no acute distress on initial evaluation. His vital signs are unremarkable. Urinalysis shows 3+ blood with mild dehydration but otherwise is unremarkable. Patient CBC and CMP demonstrate a mild bump in his creatinine, but not enough to be considered an acute kidney injury. H/H are stable from previous evaluation. While attempted to call the [facility] patient resource coordinator, they called us. They have been contacted by the patient's family. They state they will see the patient on . They request a copy of his laboratory studies be faxed to them. They also reports that the patient recently had several cardiac stents placed. The patient failed to mention this to me on my initial evaluation. When I followed up with the patient he did volunteer this information. He denies any chest pain. At this time, the patient is appropriate and stable for discharge home. Encouraged him to rest and stay well-hydrated. Discussed that the transplant team would see the patient on in [place]. General Adult HPI - General Stated complaint: blood in urine Time Seen by Provider: 10/06/20 10:48 Mode of Arrival: Ambulatory - History of Present Illness HPI narrative: 84yo M presents to emergency department secondary to concerns f
[2020-10-06 10:53] LABS: Appearance,Urine TURBID (Clear); Bilirubin,Urine Negative (Negative); Blood, Urine 3+ (Negative); Color,Urine RED (Yellow); Glucose,Urine (UA) Negative (Negative); Ketones,Urine Negative (Negative); Leukocyte Esterase,Urine Negative (Negative); Nitrate,Urine Negative (Negative); PH,Urine 5.5 (5.0-8.5); Protein,Urine 1+ (Negative); Specific Gravity, Urine >= 1.030 (1.005-1.030); Urobilinogen,Urine 0.2 EU/dl (0.2)
[2020-10-06 11:16] LABS: Basophils % 0.5 % (0.1-2.0); Eosinophils # 0.1 K/mm3 (0.0-0.4); Eosinophils % 1.5 % (0.1-12.0); Hematocrit 34.4 % (42.0-52.0); Hemoglobin 11.3 g/dL (14.1-18.0); Lymphocytes # 0.7 K/mm3 (0.7-4.5); Lymphocytes % 16.5 % (10-50); Mean Corpuscular HGB Conc 32.7 g/dL (31.8-35.4); Mean Corpuscular Hemoglobin 28.3 pg (27.0-31.2); Mean Corpuscular Volume 86.6 fl (80-94); Mean Platelet Volume 8.7 fl (7.4-10.4); Monocytes # 0.4 K/mm3 (0.1-1.0); Monocytes % 9.5 % (1.7-9.3); Platelet Count 133 K/mm3 (142-424); Red Blood Count 3.98 M/mm3 (4.60-6.20); Red Cell Distribution Width 14.9 % (11.5-17.5); White Blood Count 4.2 K/mm3 (4.8-10.8)
[2020-10-06 11:22] LABS: Albumin/Globulin Ratio 1.2 (1.1-1.8); Chloride 101 mmol/L (98-107); Globulin 2.6 g/dL (1.3-3.2); Glucose 138 mg/dl (74-100); Total Protein,Serum 5.6 g/dl (6.3-8.2)
[2020-10-06 11:23] LABS: Alanine Aminotransferase 70 U/L (12-78); Alkaline Phosphatase 118 U/L (38-126); Anion Gap 11.2 mEq/L (5-15); Aspartate Amino Transferase 64 U/L (17-59); Bilirubin,Total 0.7 mg/dl (0.2-1.3); Blood Urea Nitrogen 19 mg/dl (9-20); Calcium 8.2 mg/dl (8.4-10.2); Carbon Dioxide 24 mmol/L (22.0-30.0); Creatinine Clearance Estimated 43 mL/min (50-200); Estimated Glomerular Filt Rate 52 ml/min (>60); GFR (African American) 63 ML/MIN (>60); Potassium 4.2 mmoL/L (3.5-5.1); Sodium 132 mmol/L (136-145)
--- NOTE | 2020-10-06 11:32 | PC.NURSE ---
Dr. Brown consulting [facility] transportation coordinator at this time, Grace Malik
--- NOTE | 2020-10-06 11:45 | PC.NURSE ---
Gave status update to patient's POA, Lakia Crisostomo
--- NOTE | 2020-10-06 11:50 | PC.NURSE ---
Faxed patient's recent CT report and most recent blood work to patient's flight operation coordinator, Grace Malik at this time
--- NOTE | 2020-10-06 11:51 | PC.NURSE ---
patient will remain in room until patient's transportation arrives
[2020-10-06 12:00] VITALS: BP 101/67; PULSE 69; RESP 18; TEMP 36.7; O2SAT 95
== END 2020-10-06 12:10 | disposition home or self-care (01) ==
PROVIDERS: Emergency Provider Family Medicine; PCP Family Medicine
DX: R31.9 Hematuria, unspecified (principal); R53.1 Weakness; R06.02 Shortness of breath; Z94.0 Kidney transplant status; I25.10 Atherosclerotic heart disease of native coronary artery without angina pectoris; I25.2 Old myocardial infarction; E78.5 Hyperlipidemia, unspecified; Z79.899 Other long term (current) drug therapy
CPT/HCPCS: 80053; 81001; 85025; 99283

== ENCOUNTER → 2020-11-04 14:54 | Outpatient (CLI) | payer MEDICARE, BC, SELFPAY ==
--- NOTE | 2020-11-04 15:04 | XR_ITS ---
PROCEDURE: XR SKULL <4V CLINICAL INDICATION: KAPPA LIGHT CHAIN DISEASE COMPARISON: CT HDWO CT HEAD W/O CONTRAST from 04/04/2016 FINDINGS: No lytic changes evident. Normal bone mineralization. Intracranial calcifications are present at the region of the pineal gland and the lateral ventricles. Other findings:None. IMPRESSION: Negative skull Dictated by: Joselito Dupont MD 11/04/2020 15:38 Joselito Dupont MD in [place] 11/04/2020 15:38
== END ==
PROVIDERS: PCP Family Medicine; Visit Provider Family Medicine
DX: D89.89 Other specified disorders involving the immune mechanism, not elsewhere classified (principal)
CPT/HCPCS: 70250

== ENCOUNTER → 2020-11-10 10:26 | Outpatient (CLI) | payer MEDICARE, BC, SELFPAY ==
[2020-11-10 10:31] LABS: Microscopic, Urine URINE MICROSCOPIC (MICROSCOPIC)
[2020-11-10 11:21] LABS: Appearance,Urine CLEAR (Clear); Bilirubin,Urine Negative (Negative); Blood, Urine Negative (Negative); Color,Urine YELLOW (Yellow); Glucose,Urine (UA) Negative (Negative); Ketones,Urine Negative (Negative); Leukocyte Esterase,Urine Negative (Negative); Nitrate,Urine Negative (Negative); Protein,Urine Negative (Negative); Specific Gravity, Urine 1.015 (1.005-1.030); Urobilinogen,Urine 0.2 EU/dl (0.2)
[2020-11-10 11:33] LABS: RBC,Urine Occasional #/hpf (0-3); Squamous Epithelial Cell,Urine Occasional #/hpf (0-5)
[2020-11-10 11:43] LABS: Chloride 105 mmol/L (98-107); Potassium 4.7 mmoL/L (3.5-5.1); Sodium 135 mmol/L (136-145)
[2020-11-10 11:45] LABS: Basophils # 0.1 K/mm3 (0-0.2); Basophils % 1.3 % (0.1-2.0); Eosinophils # 0.2 K/mm3 (0.0-0.4); Eosinophils % 4.6 % (0.1-12.0); Hematocrit 40.1 % (42.0-52.0); Hemoglobin 12.3 g/dL (14.1-18.0); Lymphocytes # 0.8 K/mm3 (0.7-4.5); Lymphocytes % 21.2 % (10-50); Mean Corpuscular HGB Conc 30.7 g/dL (31.8-35.4); Mean Corpuscular Hemoglobin 28.8 pg (27.0-31.2); Mean Corpuscular Volume 93.7 fl (80-94); Mean Platelet Volume 8.3 fl (7.4-10.4); Monocytes # 0.5 K/mm3 (0.1-1.0); Monocytes % 11.9 % (1.7-9.3); Neutrophils # 2.4 K/mm3 (1.8-7.8); Neutrophils % 60.9 % (37.0-80.0); Platelet Count 190 K/mm3 (142-424); Red Blood Count 4.28 M/mm3 (4.60-6.20); Red Cell Distribution Width 15.3 % (11.5-17.5); White Blood Count 3.9 K/mm3 (4.8-10.8)
[2020-11-10 11:46] LABS: Anion Gap 9.7 mEq/L (5-15); Blood Urea Nitrogen 20 mg/dl (9-20); Carbon Dioxide 25 mmol/L (22.0-30.0); Estimated Glomerular Filt Rate 58 ml/min (>60); GFR (African American) 70 ML/MIN (>60); Glucose 114 mg/dl (74-100); Phosphorous 3.2 mg/dl (2.5-4.5)
[2020-11-10 11:47] LABS: Magnesium 1.6 mg/dl (1.6-2.3)
[2020-11-13 12:19] LABS: Tacrolimus (FK506), Blood 6.9 ng/mL (2.0-20.0)
== END ==
PROVIDERS: Visit Provider Internal Medicine
DX: Z94.0 Kidney transplant status (principal)
CPT/HCPCS: 36415; 80069; 80197; 81001; 83735; 85025

== ENCOUNTER 2021-01-17 04:48 | Emergency (ER) | payer MEDICARE, BC, SELFPAY ==
[2021-01-17] VITALS (13 sets, daily range): BP systolic 125–142; BP diastolic 60–115; PULSE 49–81; RESP 12–22; TEMP 36.5; O2SAT 92–99; BMI 21.7
--- NOTE | 2021-01-17 04:35 | ECG_ITS ---
APPROVED REPORT Exam: Resting ECG HR:49 bpm ECG Measurements Heart Rate 49 AXES PA 150 P 47 QRSd 80 QRS 34 QT 446 T 55 QTc 402 Conclusion Marked sinus bradycardia Abnormal ECG Electronically signed by : Kristopher Chicas MD 01/18/2021 20:18:58
--- NOTE | 2021-01-17 04:43 | XR_ITS ---
PROCEDURE INFORMATION: Exam: XR Chest Exam date and time: 01/17/2021 4:43 AM Age: 85 years old Clinical indication: Sternal or substernal pain; Patient HX: PT does have several cardiac stents; Additional info: Chest pain TECHNIQUE: Imaging protocol: XR of the chest. Views: 1 view. COMPARISON: CR XR CHEST PORTABLE 02/14/2020 12:34 PM FINDINGS: Lungs: Unremarkable. No consolidation. Pleural spaces: Unremarkable. No pleural effusion. No pneumothorax. Heart/Mediastinum: Unremarkable. No cardiomegaly. Bones/joints: Unremarkable. IMPRESSION: No acute findings.
--- NOTE | 2021-01-17 04:45 | CT_ITS ---
PROCEDURE INFORMATION: Exam: CTA Chest With Contrast Exam date and time: 01/17/2021 4:45 AM Age: 85 years old Clinical indication: Sternal or substernal pain; Prior surgery; Surgery date: 6+ months; Surgery type: Cardiac stents; Patient HX: RO disection; Additional info: Sudden onset of severe tearing cp radiating to beena TECHNIQUE: Imaging protocol: Computed tomographic angiography of the chest with contrast. 3D rendering (Not supervised by radiologist): MIP and/or 3D reconstructed images were created by the technologist. Radiation optimization: All CT scans at this facility use at least one of these dose optimization techniques: automated exposure control; mA and/or kV adjustment per patient size (includes targeted exams where dose is matched to clinical indication); or iterative reconstruction. Contrast material: ISOVUE 370; Contrast volume: 100 ml; Contrast route: INTRAVENOUS (IV); COMPARISON: CR XR CHEST PORTABLE 01/17/2021 5:14 AM FINDINGS: Pulmonary arteries: Normal. No pulmonary emboli. Aorta: Unremarkable. No aortic aneurysm. No aortic dissection. Lungs: Diffuse increased interstitial changes are seen throughout. No focal infiltrates I would. Pleural spaces: Unremarkable. No pneumothorax. No pleural effusion. Heart: Moderate cardiomegaly. Extensive coronary atherosclerosis with multiple coronary stents identified. Lymph nodes: Diffuse calcified mediastinal lymph nodes. This is consistent with prior granulomatous infection. Bones/joints: Unremarkable. No acute fracture. Soft tissues: Unremarkable. IMPRESSION: No evidence of pulmonary embolus or other acute process.
--- NOTE | 2021-01-17 04:46 | CT_ITS ---
PROCEDURE INFORMATION: Exam: CTA Abdomen and Pelvis With Contrast Exam date and time: 01/17/2021 4:46 AM Age: 85 years old Clinical indication: Abdominal pain; Acute; Prior surgery; Surgery date: 6+ months; Surgery type: RT kidney transplant; Additional info: Concern for aortic dissection, other TECHNIQUE: Imaging protocol: Computed tomographic angiography of the abdomen and pelvis with contrast material. 3D rendering (Not supervised by radiologist): MIP and/or 3D reconstructed images were created by the technologist. Radiation optimization: All CT scans at this facility use at least one of these dose optimization techniques: automated exposure control; mA and/or kV adjustment per patient size (includes targeted exams where dose is matched to clinical indication); or iterative reconstruction. Contrast material: ISOVUE 370; Contrast volume: 100 ml; Contrast route: INTRAVENOUS (IV); COMPARISON: CT ABDOMEN WO CON 09/29/2020 8:19 AM FINDINGS: Lungs: Diffuse interstitial thickening is seen throughout lungs Heart: Extensive coronary atherosclerosis is present. Aorta: No aortic aneurysm. No aortic dissection. Celiac trunk and mesenteric arteries: No occlusion or significant stenosis. Renal arteries: No occlusion or significant stenosis. Right iliac arteries: No occlusion or significant stenosis. Left iliac arteries: No occlusion or significant stenosis. Liver: No mass. Gallbladder and bile ducts: Unremarkable. No calcified stones. No ductal dilation. Pancreas: Unremarkable. No mass. No ductal dilation. Spleen: Unremarkable. No splenomegaly. Adrenal glands: Unremarkable. No mass. Kidneys and ureters: Unremarkable. No solid mass. No hydronephrosis. Stomach and bowel: Unremarkable. No obstruction. No mucosal thickening. Appendix: No evidence of appendicitis. Intraperitoneal space: Unremarkable. No free air. No significant fluid collection. Lymph nodes: Extensive calcified mediastinal lymph nodes are noted. Urinary bladder: Unremarkable. No mass. Reproductive: Unremarkable as visualized. Bones/joints: No acute fracture. No dislocation. Soft tissues: Unremarkable. IMPRESSION: 1. No evidence of pulmonary embolus. 2. Extensive interstitial disease is again noted. 3. Cardiomegaly with extensive coronary atherosclerosis. 4. Diffuse calcified mediastinal lymph nodes consistent with prior granulomatous infection.
[2021-01-17 04:54] LABS: Basophils # 0.1 K/mm3 (0-0.2); Basophils % 1.2 % (0.1-2.0); Eosinophils # 0.2 K/mm3 (0.0-0.4); Eosinophils % 4.7 % (0.1-12.0); Hematocrit 40.4 % (42.0-52.0); Hemoglobin 13.1 g/dL (14.1-18.0); Lymphocytes # 1.1 K/mm3 (0.7-4.5); Lymphocytes % 21.2 % (10-50); Mean Corpuscular HGB Conc 32.5 g/dL (31.8-35.4); Mean Corpuscular Hemoglobin 30.3 pg (27.0-31.2); Mean Corpuscular Volume 93.4 fl (80-94); Mean Platelet Volume 8.2 fl (7.4-10.4); Monocytes # 0.4 K/mm3 (0.1-1.0); Monocytes % 7.3 % (1.7-9.3); Neutrophils # 3.4 K/mm3 (1.8-7.8); Neutrophils % 65.5 % (37.0-80.0); Platelet Count 144 K/mm3 (142-424); Red Blood Count 4.33 M/mm3 (4.60-6.20); Red Cell Distribution Width 14.5 % (11.5-17.5); White Blood Count 5.2 K/mm3 (4.8-10.8)
--- NOTE | 2021-01-17 05:02 | HMH.EDGENADL ---
ED Disposition Clinical Impression: Chest pain Nausea & vomiting Qualifiers: Vomiting Intractability: unspecified Disposition: Home, Self-Care Condition on Discharge: Good Additional Instructions: Please continue supportive care at home including Zofran for nausea and vomiting. If your condition worsens or any other concerning symptoms arise, please return promptly to the nearest emergency department for reassessment. Please reach out to your magnetic resonance imaging coordinator for a close follow-up appointment. Do not take your metoprolol if your heart rate is less than 70 and please follow-up with your primary care doctor and discuss this. Prescriptions: Ondansetron [Zofran 4mg ODT] 4 mg PO DAILYP PRN 3 Days #9 tab PRN Reason: Nausea Transmission Status: Received by - [facility] Referrals: Neo Gavin MD [Primary Care Provider] - - Critical Care Critical Care Time: No Attestation: On 01/17/21, the high probability of a clinically significant, sudden or life threatening deterioration of the following system(s) required my full and direct attention, intervention and personal management. The time I documented below is in addition to time spent performing reported procedures but includes the following listed in this critical care notation. Medical Decision Making - Medical Records Medical records reviewed: Yes: I reviewed the patient's medical records. - Ashu Inquiry Pt receiving controlled substance: No Vital Signs: 01/17/21 04:31 01/17/21 04:46 01/17/21 05:01 Temperature Temperature Source Pulse Rate 56 L 60 Pulse Rate [Right] 56 L Respiratory Rate 16 16 13 Blood Pressure 127/89 134/75 Blood Pressure [Right Arm] 133/70 Blood Pressure Mean 97 94 Blood Pressure Mean [Right Arm] 91 Blood Pressure Source [Right Arm] Automatic Cuff 02 Sat by Pulse Oximetry 99 99 99 Oxygen Delivery Method Room Air Room Air Room Air 01/17/21 05:14 01/17/21 06:00 01/17/21 06:31 Temperature Temperature Source Pulse Rate 49 L 58 L 74 Pulse Rate [Right] Respiratory Rate 12 12 15 Blood Pressure 129/68 129/82 142/61 H Blood Pressure [Right Arm] Blood Pressure Mean 88 97 Blood Pressure Mean [Right Arm] Blood Pressure Source [Right Arm] 02 Sat by Pulse Oximetry 99 98 96 Oxygen Delivery Method 01/17/21 07:01 01/17/21 07:20 01/17/21 07:30 Temperature 97.7 F Temperature Source Oral Pulse Rate 81 80 Pulse Rate [Right] Respiratory Rate 16 18 Blood Pressure 140/115 H 126/72 Blood Pressure [Right Arm] Blood Pressure Mean 120 90 Blood Pressure Mean [Right Arm] Blood Pressure Source [Right Arm] 02 Sat by Pulse Oximetry 95 92 L Oxygen Delivery Method 01/17/21 08:01 Temperature Temperature Source Pulse Rate Pulse Rate [Right] Respiratory Rate 16 Blood Pressure 132/72 Blood Pressure [Right Arm] Blood Pressure Mean 92 Blood Pressure Mean [Right Arm] Blood Pressure Source [Right Arm] 02 Sat by Pulse Oximetry Oxygen Delivery Method - Lab Data Lab results reviewed: Yes: I reviewed the patient's lab results. Lab Results 01/17/21 04:45: WBC 5.2, RBC 4.33 L, Hgb 13.1 L, Hct 40.4 L, MCV 93.4, MCH 30.3, MCHC 32.5, RDW 14.5, Plt Count 144, MPV 8.2, Neut % (Auto) 65.5, Lymph % (Auto) 21.2, [place] % (Auto) 7.3, Eos % (Auto) 4.7, Baso % (Auto) 1.2, Neut # (Auto) 3.4, Lymph # (Auto) 1.1, [place] # (Auto) 0.4, Eos # (Auto) 0.2, Baso # (Auto) 0.1 01/17/21 04:45: Sodium 135 L, Potassium 4.3, Chloride 105, Carbon Dioxide 23, Anion Gap 11.3, BUN 18, Creatinine 0.90, Estimated Creat Clear 46, Estimated GFR 80, Est GFR ( Amer) 97, Glucose 180 H, Calcium 8.9, Total Bilirubin 0.6, AST 109 H, ALT 103 H, Alkaline Phosphatase 261 H, Total Creatine Kinase 35 L, CK-MB (CK-2) 1.0, CK-MB (CK-2) Rel Index 2.9, Troponin I < 0.01, Total Protein 6.2 L, Albumin 3.4 L, Globulin 2.8, Albumin/Globulin Ratio 1.2 01/17/21 04:45: Lipase 216 01/17/21 04:45: PT 12.4,
[2021-01-17 05:04] LABS: Chloride 105 mmol/L (98-107); Sodium 135 mmol/L (136-145)
[2021-01-17 05:05] LABS: Potassium 4.3 mmoL/L (3.5-5.1)
[2021-01-17 05:06] LABS: INR 1.11 (0.9-1.1); Lipase 216 U/L (23-300); Prothrombin Time 12.4 seconds (10.1-12.5)
[2021-01-17 05:07] LABS: Alanine Aminotransferase 103 U/L (12-78); Albumin Level 3.4 g/dl (3.5-5.0); Albumin/Globulin Ratio 1.2 (1.1-1.8); Alkaline Phosphatase 261 U/L (38-126); Anion Gap 11.3 mEq/L (5-15); Aspartate Amino Transferase 109 U/L (17-59); Bilirubin,Total 0.6 mg/dl (0.2-1.3); Blood Urea Nitrogen 18 mg/dl (9-20); Calcium 8.9 mg/dl (8.4-10.2); Carbon Dioxide 23 mmol/L (22.0-30.0); Creatine Kinase 35 U/L (55-170); Creatinine Clearance Estimated 46 mL/min (50-200); Estimated Glomerular Filt Rate 80 ml/min (>60); GFR (African American) 97 ML/MIN (>60); Globulin 2.8 g/dL (1.3-3.2); Glucose 180 mg/dl (74-100); Total Protein,Serum 6.2 g/dl (6.3-8.2)
[2021-01-17 05:16] LABS: CKMB Relative Index 2.9 U/L (0-4.0)
[2021-01-17 05:24] LABS: Lactic Acid 1.2 mmol/L (0.7-2.1)
[2021-01-17 05:28] LABS: Troponin I < 0.01 ng/ml (0.00-0.034)
[2021-01-17 06:20] LABS: Microscopic, Urine URINE MICROSCOPIC (MICROSCOPIC)
[2021-01-17 06:22] LABS: Appearance,Urine CLEAR (Clear); Bilirubin,Urine Negative (Negative); Blood, Urine Negative (Negative); Color,Urine YELLOW (Yellow); Glucose,Urine (UA) Negative (Negative); Ketones,Urine Negative (Negative); Leukocyte Esterase,Urine Negative (Negative); Nitrate,Urine Negative (Negative); PH,Urine 6.5 (5.0-8.5); Protein,Urine Negative (Negative); Urobilinogen,Urine 0.2 EU/dl (0.2)
[2021-01-17 06:36] LABS: Bacteria,Urine Trace /lpf
[2021-01-17 06:49] LABS: Coronavirus 19, PCR Not Detected (NotDetected); Influenza A, PCR Not Detected (NotDetected); Influenza B, PCR Not Detected (NotDetected)
--- NOTE | 2021-01-17 06:50 | PC.NURSE ---
[facility]
[2021-01-17 08:30] LABS: Troponin I < 0.01 ng/ml (0.00-0.034)
== END 2021-01-17 09:13 | disposition home or self-care (01) ==
PROVIDERS: Emergency Provider Emergency Medicine; PCP Family Medicine
DX: R07.9 Chest pain, unspecified (principal); I25.10 Atherosclerotic heart disease of native coronary artery without angina pectoris; Z94.0 Kidney transplant status; I25.2 Old myocardial infarction; Z88.2 Allergy status to sulfonamides; Z79.899 Other long term (current) drug therapy; Z20.822 Contact with and (suspected) exposure to COVID-19
CPT/HCPCS: 71045; 71275; 74174; 80053; 81001; 82550; 82553; 83605; 83690; 84484; 85025; 85610; 86850; 86870; 93005; 96365; 96375; 99283; C9803; J2405; Q9967; U0003; U0005

== ENCOUNTER 2021-02-14 11:39 | Emergency (ER) | payer MEDICARE, BC, SELFPAY ==
[2021-02-14 12:05] VITALS: BP 101/55; PULSE 92; RESP 18; TEMP 36.8; O2SAT 100; BMI 20.9
--- NOTE | 2021-02-14 12:12 | CT_ITS ---
PROCEDURE INFORMATION: Exam: CT Abdomen And Pelvis Without Contrast Exam date and time: 02/14/2021 12:12 PM Age: 85 years old Clinical indication: Abdominal pain; Generalized; Additional info: Kidney stone TECHNIQUE: Imaging protocol: Computed tomography of the abdomen and pelvis without contrast. Radiation optimization: All CT scans at this facility use at least one of these dose optimization techniques: automated exposure control; mA and/or kV adjustment per patient size (includes targeted exams where dose is matched to clinical indication); or iterative reconstruction. COMPARISON: CT ANGIO ABDOMEN PELVIS 01/17/2021 5:25 AM FINDINGS: Liver: Normal. No mass. Gallbladder and bile ducts: Mild abdominal ascites, which may be accentuating gallbladder wall thickness. No gallstones seen. If there is clinical concern, recommend gallbladder ultrasound. Pancreas: Normal. No ductal dilation. Spleen: Splenomegaly measures 15.5 cm in craniocaudal dimension. Adrenal glands: Normal. No mass. Kidneys and ureters: Atrophic [place] kidneys. Nonobstructing left renal calculi. Right-sided pelvic transplant kidney without renal stone or hydronephrosis. Stomach and bowel: Colonic diverticulosis without CT evidence of diverticulitis. Appendix: No evidence of appendicitis. Intraperitoneal space: See Gallbladder and bile ducts finding. Vasculature: Unremarkable. No abdominal aortic aneurysm. Lymph nodes: Unremarkable. No enlarged lymph nodes. Urinary bladder: Unremarkable as visualized. Reproductive: Unremarkable as visualized. Bones/joints: Unremarkable. No acute fracture. Soft tissues: Unremarkable. IMPRESSION: 1. Atrophic [place] kidneys. Nonobstructing left renal calculi. Right-sided pelvic transplant kidney without renal stone or hydronephrosis. 2. Splenomegaly measures 15.5 cm in craniocaudal dimension. 3. Mild abdominal ascites, which may be accentuating gallbladder wall thickness. No gallstones seen. If there is clinical concern, recommend gallbladder ultrasound. 4. Colonic diverticulosis without CT evidence of diverticulitis.
--- NOTE | 2021-02-14 12:17 | CT_ITS ---
PROCEDURE INFORMATION: Exam: CT Head Without Contrast Exam date and time: 02/14/2021 12:17 PM Age: 85 years old Clinical indication: Injury or trauma; Fall; Blunt trauma (contusions or hematomas); Consciousness not specified; Injury details: Patient fell off of toilet yesterday. TECHNIQUE: Imaging protocol: Computed tomography of the head without contrast. Radiation optimization: All CT scans at this facility use at least one of these dose optimization techniques: automated exposure control; mA and/or kV adjustment per patient size (includes targeted exams where dose is matched to clinical indication); or iterative reconstruction. COMPARISON: [facility] CT HEAD W/O CONTRAST 04/04/2016 5:12 AM FINDINGS: Brain: No acute post-traumatic brain injury. Symmetric prominence of the cortical and cerebellar sulci. Small-vessel ischemic change. Cerebral ventricles: Mild ventriculomegaly. Paranasal sinuses: No sinus fluid. Mastoid air cells: No mastoid effusion. Vasculature: Vascular and dural calcification. Bones/joints: No acute calvarial injury. Soft tissues: No significant scalp hematoma. IMPRESSION: No acute post-traumatic brain injury.
--- NOTE | 2021-02-14 12:22 | PC.NURSE ---
Pt is at CT
--- NOTE | 2021-02-14 12:30 | CT_ITS ---
PROCEDURE INFORMATION: Exam: CT Cervical Spine Without Contrast Exam date and time: 02/14/2021 12:30 PM Age: 85 years old Clinical indication: Injury or trauma; Fall; Blunt trauma; Injury details: Patient fell off of toilet yesterday. ; Additional info: Hit head, fall TECHNIQUE: Imaging protocol: Computed tomography images of the cervical spine without contrast. Radiation optimization: All CT scans at this facility use at least one of these dose optimization techniques: automated exposure control; mA and/or kV adjustment per patient size (includes targeted exams where dose is matched to clinical indication); or iterative reconstruction. COMPARISON: [facility] CT CERVICAL SPINE W/O CONT 04/04/2016 6:23 AM FINDINGS: Bones/joints: No acute bony injury or malalignment in the cervical spine. Chronic T1 spinous process fracture. 6 mm odontoid cyst. Diminished cervical lordosis. Discs/Spinal canal/Neural foramina: Multilevel degenerative change. Oropharynx: Tonsillar calcification. Lungs: Apical interstitial prominence. Soft tissues: Ligamentous and synovial calcification. IMPRESSION: 1. No acute bony injury or malalignment in the cervical spine. 2. Chronic T1 spinous process fracture.
--- NOTE | 2021-02-14 12:53 | CT_ITS ---
PROCEDURE INFORMATION: Exam: CT Lumbar Spine Without Contrast Exam date and time: 02/14/2021 12:17 PM Age: 85 years old Clinical indication: Injury or trauma; Fall; Blunt trauma (contusions or hematomas); Injury details: Patient fell off of toilet yesterday. TECHNIQUE: Imaging protocol: Computed tomography images of the lumbar spine without contrast. Radiation optimization: All CT scans at this facility use at least one of these dose optimization techniques: automated exposure control; mA and/or kV adjustment per patient size (includes targeted exams where dose is matched to clinical indication); or iterative reconstruction. COMPARISON: [facility] CT LUMBAR SPINE W/O CONTRAST 06/27/2016 7:37 AM FINDINGS: Vertebrae: No acute fracture. Prominent anterior osteophytes noted. Discs/Spinal canal/Neural foramina: Diffuse and severe disc space narrowing throughout the lumbar spine. Multilevel facet arthropathy with foraminal stenosis at L4-L5 and L5-S1, left worse than right. No severe canal stenosis. Kidneys and ureters: Atrophic [place] kidneys. Soft tissues: Unremarkable. IMPRESSION: No acute fracture. Degenerative changes as detailed above.
[2021-02-14 13:31] LABS: Appearance,Urine CLEAR (Clear); Bilirubin,Urine Negative (Negative); Blood, Urine Negative (Negative); Color,Urine YELLOW (Yellow); Glucose,Urine (UA) Negative (Negative); Ketones,Urine Negative (Negative); Leukocyte Esterase,Urine Negative (Negative); Microscopic, Urine URINE MICROSCOPIC (MICROSCOPIC); Nitrate,Urine Negative (Negative); Protein,Urine TRACE (Negative); Specific Gravity, Urine >= 1.030 (1.005-1.030); Urobilinogen,Urine 0.2 EU/dl (0.2)
[2021-02-14 14:10] LABS: Basophils % 0.7 % (0.1-2.0); Eosinophils # 0.1 K/mm3 (0.0-0.4); Eosinophils % 2.7 % (0.1-12.0); Hematocrit 39.8 % (42.0-52.0); Hemoglobin 12.9 g/dL (14.1-18.0); Lymphocytes # 1.4 K/mm3 (0.7-4.5); Mean Corpuscular HGB Conc 32.5 g/dL (31.8-35.4); Mean Corpuscular Hemoglobin 29.5 pg (27.0-31.2); Mean Corpuscular Volume 90.8 fl (80-94); Monocytes # 0.4 K/mm3 (0.1-1.0); Monocytes % 8.8 % (1.7-9.3); Neutrophils # 2.6 K/mm3 (1.8-7.8); Neutrophils % 57.7 % (37.0-80.0); Platelet Count 151 K/mm3 (142-424); Red Blood Count 4.38 M/mm3 (4.60-6.20); Red Cell Distribution Width 13.7 % (11.5-17.5); White Blood Count 4.5 K/mm3 (4.8-10.8)
[2021-02-14 14:18] LABS: Chloride 104 mmol/L (98-107); Sodium 134 mmol/L (136-145)
[2021-02-14 14:19] LABS: Potassium 3.8 mmoL/L (3.5-5.1)
[2021-02-14 14:21] LABS: Alanine Aminotransferase 127 U/L (12-78); Amylase 82 U/L (30-110); Anion Gap 12.8 mEq/L (5-15); Aspartate Amino Transferase 140 U/L (17-59); Blood Urea Nitrogen 22 mg/dl (9-20); Carbon Dioxide 21 mmol/L (22.0-30.0); Creatinine Clearance Estimated 37 mL/min (50-200); Estimated Glomerular Filt Rate 57 ml/min (>60); GFR (African American) 69 ML/MIN (>60)
[2021-02-14 14:22] LABS: Albumin Level 3.2 g/dl (3.5-5.0); Albumin/Globulin Ratio 1.1 (1.1-1.8); Alkaline Phosphatase 358 U/L (38-126); Bilirubin,Total 0.5 mg/dl (0.2-1.3); Calcium 8.7 mg/dl (8.4-10.2); Globulin 2.9 g/dL (1.3-3.2); Glucose 166 mg/dl (74-100); Lipase 222 U/L (23-300); Total Protein,Serum 6.1 g/dl (6.3-8.2)
--- NOTE | 2021-02-14 15:25 | HMH.EDFALL ---
ED Disposition Clinical Impression: Fall, Hematuria Disposition: Home, Self-Care Condition on Discharge: Good Instructions: Kidney Stones -- Adult Additional Instructions: Please follow-up with your senior financial/primary team in 2 to 3 days for further management. Please return back to the emergency department for any concerning symptoms such as fevers, abdominal pain, difficulty breathing, lethargy, inability to urinate or any other concerning symptoms. Referrals: Neo Gavin MD [Primary Care Provider] - Time of Disposition: 16:55 - Critical Care Critical Care Time: No Attestation: On 02/14/21, the high probability of a clinically significant, sudden or life threatening deterioration of the following system(s) required my full and direct attention, intervention and personal management. The time I documented below is in addition to time spent performing reported procedures but includes the following listed in this critical care notation. Medical Decision Making - Medical Records Medical records reviewed: Yes: I reviewed the patient's medical records. - Ashu Inquiry Pt receiving controlled substance: No Vital Signs: 02/14/21 12:05 02/14/21 15:36 02/14/21 15:45 Temperature 98.2 F 98.3 F Temperature Source Oral Oral Pulse Rate 78 77 Pulse Rate [Right Radial] 92 H Respiratory Rate 18 15 18 Blood Pressure 170/115 H 181/97 H Blood Pressure [Right Arm] 101/55 L Blood Pressure Mean 126 Blood Pressure Mean [Right Arm] 70 Blood Pressure Source Automatic Cuff Blood Pressure Source [Right Arm] Automatic Cuff Blood Pressure Position Supine Blood Pressure Position [Right Arm] Sitting 02 Sat by Pulse Oximetry 100 95 Oxygen Delivery Method Room Air Room Air - Lab Data Lab results reviewed: Yes: I reviewed the patient's lab results. Lab Results 02/14/21 13:15: Urine Color Yellow, Urine Appearance Clear, Urine pH 6.0, Ur Specific [place] >= 1.030, Urine Protein Trace, Urine Glucose (UA) Negative, Urine Ketones Negative, Urine Blood Negative, Urine Nitrate Negative, Urine Bilirubin Negative, Urine Urobilinogen 0.2, Ur Leukocyte Esterase Negative, Urine RBC None, Urine WBC None, Ur Squamous Epith Cells None, Urine Bacteria None 02/14/21 13:54: WBC 4.5 L, RBC 4.38 L, Hgb 12.9 L, Hct 39.8 L, MCV 90.8, MCH 29.5, MCHC 32.5, RDW 13.7, Plt Count 151, MPV 8.0, Neut % (Auto) 57.7, Lymph % (Auto) 30.0, [place] % (Auto) 8.8, Eos % (Auto) 2.7, Baso % (Auto) 0.7, Neut # (Auto) 2.6, Lymph # (Auto) 1.4, [place] # (Auto) 0.4, Eos # (Auto) 0.1, Baso # (Auto) 0.0 02/14/21 13:54: Sodium 134 L, Potassium 3.8, Chloride 104, Carbon Dioxide 21 L, Anion Gap 12.8, BUN 22 H, Creatinine 1.20, Estimated Creat Clear 37, Estimated GFR 57 L, Est GFR ( Amer) 69, Glucose 166 H, Calcium 8.7, Total Bilirubin 0.5, AST 140 H, ALT 127 H, Alkaline Phosphatase 358 H, Total Protein 6.1 L, Albumin 3.2 L, Globulin 2.9, Albumin/Globulin Ratio 1.1, Amylase 82, Lipase 222 Result diagrams: 02/14/21 13:54 02/14/21 13:54 Medical Decision Narrative: Mr. James is an 85 yo male w/ PMH for kidney transplant 2006 who presents to the ED after a mechanical fall from standing w/ hematuria this morning. Patient denies hitting head, -LOC. He is currently asymptomatic. Differentials to consider include: renal injury, renal rejection, known nephrolithiasis, UTI. CT abdomen and pelvis, CT head, CT spine is non actionable, no acute spinal injury, no renal injury or other acute intraabdominal injury. Basic labs, UA are non actionable. No blood in urine. Creatinine per baseline. Patient is informed to fu w/ primary team in 2-3 days and to return for any concerning symptoms. Fall HPI - General Chief Complaint: Fall Stated Complaint: AO fall 1211, blood in urine Time Seen by Provider: 02/14/21 12:25 Mode of Arrival: Wheelchair Source of Information: Patient, Relative Limitations: No Limitations Description of Symptoms (Recalled from ER Triage Doc. by
[2021-02-14 15:36] VITALS: BP 170/115; PULSE 78; RESP 15; O2SAT 95
[2021-02-14 15:45] VITALS: BP 181/97; PULSE 77; RESP 18; TEMP 36.8; O2SAT 97
== END 2021-02-14 15:45 | disposition home or self-care (01) ==
PROVIDERS: Emergency Provider Student in an Organized Health Care Education/Training Program; PCP Family Medicine
DX: R31.9 Hematuria, unspecified (principal); Z94.0 Kidney transplant status; F03.90 Unspecified dementia, unspecified severity, without behavioral disturbance, psychotic disturbance, mood disturbance, and anxiety; I10 Essential (primary) hypertension; I25.2 Old myocardial infarction; E78.5 Hyperlipidemia, unspecified
CPT/HCPCS: 70450; 72125; 72131; 74176; 80053; 81001; 82150; 83690; 85025; 99283

== ENCOUNTER 2021-02-26 08:18 | Emergency (ER) | payer MEDICARE, BC, SELFPAY ==
[2021-02-26 08:18] VITALS: BP 130/75; PULSE 75; RESP 16; TEMP 36.5; O2SAT 96; BMI 26.6
--- NOTE | 2021-02-26 08:34 | CT_ITS ---
PROCEDURE: CT ABDOMEN PELVIS WO CON CLINICAL INDICATION: Diarrhea COMPARISON: CT CT ABDOMEN PELVIS WO CON from 02/14/2021 TECHNIQUE: Axial images obtained with sagittal and coronal reformats. All CT scans at the facility use one or more dose reduction, viz: automated exposure control, ma/kV adjustment per patient size (including targeted exams where dose is matched to indication, i.e. head), or iterative reconstruction technique. FINDINGS: Coronary artery stents and calcifications noted. Chronic changes in the lung bases. No focal liver lesion. Spleen is enlarged measuring 15 x 10 cm. Adrenal glands and pancreas have an unremarkable appearance. The gallbladder is distended with thickened wall. There is severe bilateral renal atrophy with nonobstructing 5 mm stone in the lower pole of the left kidney and 4 mm stone in the upper pole of the left kidney. No hydronephrosis. The bowel gas pattern is nonspecific. Numerous fluid-filled loops of small bowel are present with scattered air-fluid levels. There is also air-fluid levels within the large bowel. There is colonic diverticulosis. No evidence of diverticulitis. There is a mild amount of ascites with mild perihepatic and perisplenic fluid. There is a right renal pelvic transplant. No hydronephrosis or obstructing stones. No pelvic mass or abnormal fluid collection. Is mild thickening of the lower rectum nonspecific. No free air is apparent.. IMPRESSION: 1. Scattered air-fluid levels within both large and small bowel which could represent enterocolitis. Mild thickening of the lower rectum nonspecific. 2. Colonic diverticulosis. No evidence of diverticulitis. 3. Continue gallbladder wall thickening and gallbladder distension. 4. Mild amount of abdominal ascites. This is not significantly changed 5. Splenomegaly 6. Severe atrophy of the kidneys with nonobstructing left renal calculi. Right lower quadrant renal allograft present. Dictated by: Joselito Dupont MD 02/26/2021 09:12 Joselito Dupont MD in [place] 02/26/2021 09:12
--- NOTE | 2021-02-26 08:46 | PC.NURSE ---
pt's daughter at bedside. she states pt was c/o abd burning and was given zofran at 2am
[2021-02-26 08:53] LABS: Basophils % 0.9 % (0.1-2.0); Eosinophils # 0.1 K/mm3 (0.0-0.4); Eosinophils % 2.3 % (0.1-12.0); Hematocrit 40.6 % (42.0-52.0); Lymphocytes # 1.3 K/mm3 (0.7-4.5); Lymphocytes % 31.2 % (10-50); Mean Corpuscular Hemoglobin 29.2 pg (27.0-31.2); Mean Corpuscular Volume 91.4 fl (80-94); Mean Platelet Volume 8.3 fl (7.4-10.4); Monocytes # 0.4 K/mm3 (0.1-1.0); Monocytes % 10.3 % (1.7-9.3); Neutrophils # 2.2 K/mm3 (1.8-7.8); Neutrophils % 55.3 % (37.0-80.0); Platelet Count 153 K/mm3 (142-424); Red Blood Count 4.44 M/mm3 (4.60-6.20)
--- NOTE | 2021-02-26 09:08 | [facility].EDGENADL ---
ED Disposition Clinical Impression: Enterocolitis Disposition: Home, Self-Care Condition on Discharge: Fair Instructions: DI for Diarrhea and Traveler's Diarrhea -- Adult, DI for Nausea -- Adult Prescriptions: Ondansetron [Zofran 4mg ODT] 4 mg PO BIDP PRN #9 tab PRN Reason: nausea Transmission Status: Pending to [facility] #[id number] Referrals: Neo Gavin MD [Primary Care Provider] - - Critical Care Critical Care Time: No Attestation: On 02/26/21, the high probability of a clinically significant, sudden or life threatening deterioration of the following system(s) required my full and direct attention, intervention and personal management. The time I documented below is in addition to time spent performing reported procedures but includes the following listed in this critical care notation. Medical Decision Making - Medical Records Medical records reviewed: Yes: I reviewed the patient's medical records. - Ashu Inquiry Pt receiving controlled substance: No Ashu was queried for this patient: No Vital Signs: 02/26/21 08:18 Temperature 97.7 F Temperature Source Oral Pulse Rate [Radial] 75 Respiratory Rate 16 Blood Pressure [Right Radial Artery] 130/75 Blood Pressure Mean [Right Radial Artery] 93 Blood Pressure Position [Right Radial Artery] Sitting 02 Sat by Pulse Oximetry 96 Oxygen Delivery Method Room Air - Lab Data Lab results reviewed: Yes: I reviewed the patient's lab results. Lab Results 02/26/21 08:44: WBC 4.0 L, RBC 4.44 L, Hgb 13.0 L, Hct 40.6 L, MCV 91.4, MCH 29.2, MCHC 32.0, RDW 14.0, Plt Count 153, MPV 8.3, Neut % (Auto) 55.3, Lymph % (Auto) 31.2, [place] % (Auto) 10.3 H, Eos % (Auto) 2.3, Baso % (Auto) 0.9, Neut # (Auto) 2.2, Lymph # (Auto) 1.3, [place] # (Auto) 0.4, Eos # (Auto) 0.1, Baso # (Auto) 0.0 02/26/21 08:44: Sodium 132 L, Potassium 4.6, Chloride 103, Carbon Dioxide 25, Anion Gap 8.6, BUN 24 H, Creatinine 1.30 H, Estimated Creat Clear 42, Estimated GFR 52 L, Est GFR ( Amer) 63, Glucose 127 H, Calcium 9.5, Phosphorus 3.4, Magnesium 1.4 L, Total Bilirubin 0.5, AST 192 H, ALT 168 H, Alkaline Phosphatase 338 H, Total Protein 6.4, Albumin 3.3 L, Globulin 3.1, Albumin/Globulin Ratio 1.1, Lipase 286 02/26/21 08:44: Lactate 0.8 Result diagrams: 02/26/21 08:44 02/26/21 08:44 Orders (Tests/Meds): ED MEDICATIONS Discontinued Medications Generic Name Dose Route Start Last Admin Trade Name Freq PRN Reason Stop Dose Admin Lactated Ringer's 500 mls @ 999 mls/hr 02/26/21 08:45 02/26/21 08:47 Lactated Ringer's 1000 Ml Bag IV 02/26/21 09:15 999 mls/hr .Q31M IRMA Administration Ondansetron HCl 4 mg 02/26/21 08:26 02/26/21 08:31 Ondansetron 4mg/2ml Vial IV 02/26/21 08:27 4 mg ONCE ONE Administration ORDERS Category Date Time Status Diarrhea 23 Panel, PCR Stat Lab 02/26/21 09:37 Ordered Urinalysis and Microscopic Stat Lab 02/26/21 08:25 Ordered Urine Culture Stat Micro 02/26/21 08:25 Ordered Medical Decision Narrative: Patient is an 85-year-old male with past medical history of renal transplant in 2017 presenting to the ED for diarrhea. Patient is awake, alert, not in acute distress. Patient is medically stable, afebrile. Patient's physical exam is unremarkable, patient has a soft nondistended nontender abdomen. Differential includes but is not limited to colitis, diverticulosis, diverticulitis, low concern for small bowel obstruction, large bowel obstruction. Given this a CBC, CMP, lipase, lactate, electrolytes are performed. UA, urine culture was performed, CT abdomen pelvis is performed. Patient's lab work is unremarkable, creatinine is 1.3 a very slight increase from 1.2 is his baseline. Patient given [address] abdomen pelvis remarkable for inflammation of the small bowel consistent with enterocolitis. At this point patient is written for Zofran and given strict return precautions and follow-up instruction
[2021-02-26 09:11] LABS: Chloride 103 mmol/L (98-107); Lactic Acid 0.8 mmol/L (0.7-2.1); Potassium 4.6 mmoL/L (3.5-5.1); Sodium 132 mmol/L (136-145)
[2021-02-26 09:14] LABS: Alanine Aminotransferase 168 U/L (12-78); Albumin Level 3.3 g/dl (3.5-5.0); Albumin/Globulin Ratio 1.1 (1.1-1.8); Alkaline Phosphatase 338 U/L (38-126); Anion Gap 8.6 mEq/L (5-15); Aspartate Amino Transferase 192 U/L (17-59); Bilirubin,Total 0.5 mg/dl (0.2-1.3); Blood Urea Nitrogen 24 mg/dl (9-20); Carbon Dioxide 25 mmol/L (22.0-30.0); Creatinine Clearance Estimated 42 mL/min (50-200); Estimated Glomerular Filt Rate 52 ml/min (>60); GFR (African American) 63 ML/MIN (>60); Globulin 3.1 g/dL (1.3-3.2); Lipase 286 U/L (23-300); Magnesium 1.4 mg/dl (1.6-2.3); Phosphorous 3.4 mg/dl (2.5-4.5); Total Protein,Serum 6.4 g/dl (6.3-8.2)
[2021-02-26 09:20] LABS: Calcium 9.5 mg/dl (8.4-10.2); Glucose 127 mg/dl (74-100)
[2021-02-26 10:15] LABS: Adenovirus F 40/41, stool Not Detected (NotDetected); Astrovirus Not Detected (NotDetected); Campylobacter Not Detected (NotDetected); Clostridium Difficile A/B, PCR Not Detected (NotDetected); Cryptosporidium Not Detected (NotDetected); Cyclospora Cayetanesis Not Detected (NotDetected); Entamoeba histolytica Not Detected (NotDetected); Enteroaggregative E coli Not Detected (NotDetected); Enteropathogenic E coli Not Detected (NotDetected); Enterotoxigenic E coli Not Detected (NotDetected); Giardia lamblia Not Detected (NotDetected); Norovirus Not Detected (NotDetected); Plesimonas Shigalloides, PCR Not Detected (NotDetected); Rotavirus A Not Detected (NotDetected); Salmonella, PCR Not Detected (NotDetected); Sapovirus Not Detected (NotDetected); Shiga-like toxin E coli Not Detected (NotDetected); Shigella Enterovasive E coli Not Detected (NotDetected); Vibrio Cholerae Not Detected (NotDetected); Vibrio, PCR Not Detected (NotDetected); Yersinia Entercolitica, PCR Not Detected (NotDetected)
[2021-02-26 10:15] LABS: Microscopic, Urine URINE MICROSCOPIC (MICROSCOPIC)
[2021-02-26 10:20] LABS: Appearance,Urine CLEAR (Clear); Bilirubin,Urine Negative (Negative); Blood, Urine Negative (Negative); Color,Urine YELLOW (Yellow); Glucose,Urine (UA) Negative (Negative); Ketones,Urine Negative (Negative); Leukocyte Esterase,Urine Negative (Negative); Nitrate,Urine Negative (Negative); Protein,Urine Negative (Negative); Specific Gravity, Urine 1.015 (1.005-1.030); Urobilinogen,Urine 0.2 EU/dl (0.2)
[2021-02-26 10:25] LABS: Squamous Epithelial Cell,Urine Occasional #/hpf (0-5)
[2021-02-26 10:50] VITALS: BP 110/78; PULSE 75; RESP 16; TEMP 36.6; O2SAT 96
== END 2021-02-26 10:52 | disposition home or self-care (01) ==
PROVIDERS: Emergency Provider Emergency Medicine; PCP Family Medicine
DX: K52.9 Noninfective gastroenteritis and colitis, unspecified (principal); Z94.0 Kidney transplant status; R19.7 Diarrhea, unspecified; I10 Essential (primary) hypertension; I25.2 Old myocardial infarction; E78.5 Hyperlipidemia, unspecified
CPT/HCPCS: 74176; 80053; 81001; 83605; 83690; 83735; 84100; 85025; 87086; 87088; 87186; 87507; 96365; 96375; 99283; J2405